=== PATIENT | female | born 1945 | race Caucasian/White ===

== ENCOUNTER 2020-06-18 10:34 | Outpatient (REF) | payer MEDICARE, OTHER, SELFPAY ==
[2020-06-18 14:32] LABS: Alanine Aminotransferase 14 U/L (0-31); Albumin Level 4.3 g/dL (3.5-5.0); Alkaline Phosphatase 57 U/L (39-117); Anion Gap 12 (12-20); Aspartate Amino Transferase 19 U/L (5-31); Bilirubin Total 0.9 mg/dL (0.0-1.0); Blood Urea Nitrogen 15 mg/dL (9-16); Calcium 9.2 mg/dL (8.4-10.2); Carbon Dioxide 30 mmol/L (22-29); Chloride 103 mmol/L (96-108); Cholesterol 160 mg/dL; Estimated Glomerular Filt Rate > 60; Glucose Fasting 92 mg/dL (60-99); HDL Cholesterol 61 mg/dL; LDL Cholesterol Calculated 80 mg/dl; Potassium 4.6 mmol/L (3.3-5.1); Sodium 140 mmol/L (135-145); Total Protein 7.1 g/dL (6.5-8.0); Triglycerides 95 mg/dL
[2020-06-18 15:08] LABS: Thyroid Stimulating Hormone 1.15 uIU/mL (0.32-4.0)
== END 2020-06-18 10:35 | disposition home or self-care (01) ==
LOC: HO.HMGCLDS 10:34
PROVIDERS: PCP Internal Medicine; Visit Provider Internal Medicine
DX: I10 Essential (primary) hypertension (principal); E78.5 Hyperlipidemia, unspecified; G57.02 Lesion of sciatic nerve, left lower limb; M70.62 Trochanteric bursitis, left hip
CPT/HCPCS: 36415; 80053; 80061; 84443

== ENCOUNTER 2020-06-25 14:11 | Outpatient (REF) | payer MEDICARE, OTHER, SELFPAY ==
--- NOTE | ~2020-06-25 | XR_ITS ---
EXAMINATION: XR KNEE, RIGHT CLINICAL INFORMATION: Right knee pain COMPARISON: None TECHNIQUE: Four views of the right knee. FINDINGS: There is no evidence of acute fracture or dislocation of the right knee. No right knee effusion is seen. There is chondrocalcinosis present most prominent about the lateral joint space compartment. Joint space compartments are maintained. 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 XR/XR knee RT 4V IMPRESSION: No acute fracture or dislocation of the right knee. No right knee effusion. Chondrocalcinosis.
== END 2020-06-25 14:12 | disposition home or self-care (01) ==
LOC: HO.HMGCX 14:11
PROVIDERS: PCP Internal Medicine; Visit Provider Internal Medicine
DX: M25.561 Pain in right knee (principal)
CPT/HCPCS: 73564

== ENCOUNTER 2020-12-31 09:37 | Outpatient (REF) | payer MEDICARE, OTHER, SELFPAY ==
[2020-12-31 11:48] LABS: Alanine Aminotransferase 16 U/L (0-31); Albumin Level 4.5 g/dL (3.5-5.0); Alkaline Phosphatase 57 U/L (39-117); Anion Gap 14 (12-20); Aspartate Amino Transferase 19 U/L (5-31); Bilirubin Total 0.7 mg/dL (0.0-1.0); Blood Urea Nitrogen 20 mg/dL (9-16); Calcium 9.9 mg/dL (8.4-10.2); Carbon Dioxide 26 mmol/L (22-29); Chloride 104 mmol/L (96-108); Estimated Glomerular Filt Rate > 60; Glucose Random 147 mg/dL (60-115); Potassium 4.4 mmol/L (3.3-5.1); Sodium 140 mmol/L (135-145); Total Protein 6.8 g/dL (6.5-8.0)
== END 2020-12-31 09:38 | disposition home or self-care (01) ==
LOC: HO.HMGCLDS 09:37
PROVIDERS: PCP Internal Medicine; Visit Provider Internal Medicine
DX: E78.5 Hyperlipidemia, unspecified (principal); I10 Essential (primary) hypertension
CPT/HCPCS: 36415; 80053

== ENCOUNTER 2021-01-19 14:03 | Outpatient (REF) | payer MEDICARE, OTHER, SELFPAY ==
--- NOTE | ~2021-01-19 | US_ITS ---
EXAMINATION: US EXTRACRANIAL CAROTID DUPLEX, BILATERAL CLINICAL INFORMATION: Carotid bruit. Hypertension. Hyperlipidemia. COMPARISON: None TECHNIQUE: Real-time ultrasound and Doppler techniques (integrating B-mode 2-D vascular images, Doppler spectral analysis and color-flow Doppler imaging) were utilized to interrogate the extracranial carotid arteries, the vertebral arteries and proximal subclavian arteries bilaterally. The degree of stenosis is determined by criteria similar to NASCET. FINDINGS: Right Side: 1. There is hyperechoic atherosclerotic plaque seen in the bifurcation/proximal ICA region. 2. The common carotid artery PSV proximally is 75 cm/s and distally 70 cm/s. 3. The proximal internal carotid artery velocities are 149 cm/s systolic and 29 cm/s diastolic. 4. The proximal external carotid artery PSV is 87 cm/s. 5. The vertebral artery shows antegrade flow. 6. The subclavian artery waveforms are normal. Left Side: 1. There is hyperechoic atherosclerotic plaque seen in the bifurcation/proximal ICA region. 2. The common carotid artery PSV proximally is 80 cm/s and distally 68 cm/s. 3. The proximal internal carotid artery velocities are 71 cm/s systolic and 13 cm/s diastolic. 4. The proximal external carotid artery PSV is 85 cm/s. 5. The vertebral artery shows antegrade flow. 6. The subclavian artery waveforms are normal. US/US carotid duplex BI IMPRESSION: 1. RIGHT: Moderate, hemodynamically significant stenosis of the proximal right internal carotid artery corresponding to a 50-79% stenosis by velocity criteria. 2. LEFT: Minimal, non-hemodynamically significant stenosis of the proximal left internal carotid artery corresponding to a 0-49% stenosis by velocity criteria.
== END 2021-01-19 14:04 | disposition home or self-care (01) ==
LOC: HO.HMGCX 14:03
PROVIDERS: PCP Internal Medicine; Visit Provider Internal Medicine
DX: R09.89 Other specified symptoms and signs involving the circulatory and respiratory systems (principal); M85.80 Other specified disorders of bone density and structure, unspecified site
CPT/HCPCS: 93880

== ENCOUNTER 2021-02-03 13:16 | Outpatient (REF) | payer MEDICARE, OTHER, SELFPAY ==
--- NOTE | ~2021-02-03 | MM_ITS ---
EXAMINATION: BONE DENSITOMETRY CLINICAL INDICATION: Other specified disorders of bone density and structure. COMPARISON: None (current study represents initial baseline exam). TECHNIQUE: Using a [employer] DXA System (software version: 13.1) manufactured by [employer], dual-energy x-ray absorptiometry was performed of the lumbar spine and left hip. The images are of good technical quality. Summary results are attached. FINDINGS: AP SPINE L1-L3 (excluding L4): The data of L1-L4 has been changed to exclude the L4 vertebral body, because degenerative changes at this level may cause overestimation of lumbar spine density. BMD 0.843 g/cm2, Z-score -1.3, T-score -2.7, osteoporosis. LEFT FEMUR, NECK: BMD 0.801 g/cm2, Z-score 0.1, T-score -1.7, osteopenia. LEFT FEMUR, TOTAL: BMD 0.854 g/cm2, Z-score 0.4, T-score -1.2, osteopenia. IDENTIFIED RISK FACTORS: Menopause. HISTORY OF FRACTURE: None listed. MEDICATIONS: Vitamin D. MM/XR DEXA axial skeleton IMPRESSION: 1. DIAGNOSIS: Osteoporosis based on the lowest T-score value of -2.7 in the lumbar spine applying World Health Organization criteria. 2. 10-YEAR FRACTURE RISK PREDICTION, FRAX: Major osteoporotic fracture (clinical spine, forearm, hip or shoulder) 13.0%. Hip fracture 3.1%. 3. Treatment Recommendations: NOF guidelines recommend consideration for treatment in postmenopausal women and men age 50 and older presenting with the following: -A hip or vertebral (clinical or morphometric) fracture. -T-score less than or equal to -2.5 at the femoral neck or spine after appropriate evaluation to exclude secondary causes. -Low bone mass at the hip or spine and a 10-year fracture probability by FRAX of greater than or equal to 3% for hip fracture or greater than or equal to 20% for major osteoporotic fracture based on the [place] adapted WHO algorithm. 4. Other Recommendations: All treatment decisions require clinical judgment and consideration of individual patient factors, including patient preferences, comorbidities, previous drug use, risk factors not captured in the FRAX model (e.g. frailty, falls, vitamin D deficiency, increased bone turnover, interval significant decline in bone density) and possible under or overestimation of fracture risk by FRAX. Additional medical evaluation for secondary cause of low bone mineral density may be appropriate. FUTURE SCAN RECOMMENDATION: People with diagnosed cases of osteoporosis or at high risk for fracture should have regular bone mineral density tests. For patients eligible for Medicare, routine testing is allowed once every 2 years. The testing frequency can be increased to one year for patients who have rapidly progressing disease, those who are receiving or discontinuing medical therapy to restore bone mass, or have additional risk factors.
== END 2021-02-03 13:17 | disposition home or self-care (01) ==
LOC: HO.MAMMO 13:16
PROVIDERS: Visit Provider Internal Medicine
DX: Z13.820 Encounter for screening for osteoporosis (principal); M81.0 Age-related osteoporosis without current pathological fracture; M85.80 Other specified disorders of bone density and structure, unspecified site; Z78.0 Asymptomatic menopausal state; Z79.899 Other long term (current) drug therapy
CPT/HCPCS: 77080

== ENCOUNTER 2022-01-06 10:22 | Outpatient (REF) | payer MEDICARE, OTHER, SELFPAY ==
[2022-01-06 11:27] LABS: Estimated Average Glucose 117 mg/dL; Hemoglobin A1c % 5.7 %
[2022-01-06 11:37] LABS: Alanine Aminotransferase 17 U/L (0-31); Albumin Level 4.1 g/dL (3.5-5.0); Alkaline Phosphatase 45 U/L (39-117); Anion Gap 13 (12-20); Aspartate Amino Transferase 21 U/L (5-31); Bilirubin Total 0.7 mg/dL (0.0-1.0); Blood Urea Nitrogen 19 mg/dL (9-16); Calcium 9.7 mg/dL (8.4-10.2); Carbon Dioxide 30 mmol/L (22-29); Chloride 103 mmol/L (96-108); Cholesterol 154 mg/dL; Estimated Glomerular Filt Rate 57; Glucose Fasting 93 mg/dL (60-99); HDL Cholesterol 74 mg/dL; LDL Cholesterol Calculated 69 mg/dl; Potassium 4.4 mmol/L (3.3-5.1); Sodium 142 mmol/L (135-145); Total Protein 6.5 g/dL (6.5-8.0); Triglycerides 57 mg/dL
[2022-01-06 12:01] LABS: TSH reflex Free T4 1.78 uIU/mL (0.32-4.0); Vitamin D 25-OH Total 36.4 ng/mL (>30)
== END 2022-01-06 10:23 | disposition home or self-care (01) ==
LOC: HO.HMGCLDS 10:22
PROVIDERS: PCP Internal Medicine; Visit Provider Internal Medicine
DX: Z00.00 Encounter for general adult medical examination without abnormal findings (principal); E78.5 Hyperlipidemia, unspecified; I10 Essential (primary) hypertension; M85.80 Other specified disorders of bone density and structure, unspecified site; E55.9 Vitamin D deficiency, unspecified
CPT/HCPCS: 36415; 80053; 80061; 82306; 83036; 84443

== ENCOUNTER 2022-05-06 13:57 | Outpatient (REF) | payer MEDICARE, OTHER, SELFPAY ==
[2022-05-06 15:15] LABS: Appearance Urine Clear; Color Urine Dark Yellow; Glucose Urine UA Negative (Negative); Leukocyte Esterase Urine Small (1+) (Negative); Nitrite Urine Positive (Negative); Specific Gravity - Urine 1.015 (1.005-1.025); UMIC TRIGGER UACC YES; Urine Blood Negative (Negative); Urine Ketones Negative (Negative); Urine Protein Negative (Neg-Trace)
[2022-05-06 15:20] LABS: Bacteria Urine 1+ (None Seen); Hyaline Casts Urine 0-2 /LPF (0-2); RBC Urine 0-2 /HPF (0-2); Squamous Epithelial Cell Urine 0-2 /HPF (0-2); UACC Culture Trigger YES
== END 2022-05-06 13:58 | disposition home or self-care (01) ==
LOC: HO.LAB 13:57
PROVIDERS: Visit Provider Nurse Practitioner Acute Care
DX: R35.0 Frequency of micturition (principal)
CPT/HCPCS: 81001; 87086; 87088; 87186

== ENCOUNTER 2022-07-05 09:51 | Outpatient (REF) | payer MEDICARE, OTHER, SELFPAY ==
[2022-07-05 11:52] LABS: MANUAL DIFF FLAG NO
[2022-07-05 12:09] LABS: Basophils Percent Auto 0.7 % (0-2); Eosinophils Absolute Auto 0.3 X10*3/uL (0.0-0.4); Eosinophils Percent Auto 4.7 % (0-4); Hematocrit 41.1 % (37.0-47.0); Hemoglobin 13.6 g/dl (12.0-16.0); Imm Gran Abs Auto 0.02 X10*3/uL (0.00-0.03); Imm Gran Pct Auto 0.3 % (0.0-0.4); Lymphocytes Absolute Auto 0.9 X10*3/uL (1.2-4.9); Mean Corpuscular HGB Conc 33.1 g/dl (31.0-35.0); Mean Corpuscular Hemoglobin 31.5 pg (27.0-33.0); Mean Corpuscular Volume 95.1 fL (80.0-98.0); Mean Platelet Volume 10.5 fL (9.4-12.3); Monocytes Absolute Auto 0.5 X10*3/uL (0.1-1.2); Monocytes Percent Auto 9.1 % (2-11); Neutrophils Absolute Auto 4.2 x10*3/uL (2.0-8.3); Neutrophils Percent Auto 70.2 % (45-73); Platelet Count 176 X10*3/uL (160-400); Red Blood Count 4.32 X10*6/uL (4.20-5.50); Red Cell Distribution Width 13.3 % (11.0-16.0); White Blood Count 5.9 X10*3/uL (4.8-10.8)
[2022-07-05 12:49] LABS: Estimated Average Glucose 120 mg/dL; Hemoglobin A1c % 5.8 %
[2022-07-05 12:51] LABS: Alanine Aminotransferase 17 U/L (0-31); Alkaline Phosphatase 55 U/L (39-117); Anion Gap 15 (12-20); Aspartate Amino Transferase 22 U/L (5-31); Bilirubin Total 1.1 mg/dL (0.0-1.0); Blood Urea Nitrogen 16 mg/dL (9-16); Calcium 9.6 mg/dL (8.4-10.2); Carbon Dioxide 27 mmol/L (22-29); Chloride 106 mmol/L (96-108); Estimated Glomerular Filt Rate > 60; Glucose Fasting 97 mg/dL (60-99); Potassium 4.6 mmol/L (3.3-5.1); Sodium 143 mmol/L (135-145); Total Protein 6.4 g/dL (6.5-8.0)
[2022-07-05 12:53] LABS: TSH reflex Free T4 1.45 uIU/mL (0.32-4.0)
== END 2022-07-05 09:52 | disposition home or self-care (01) ==
LOC: HO.HMGCLDS 09:51
PROVIDERS: PCP Internal Medicine; Visit Provider Internal Medicine
DX: E03.9 Hypothyroidism, unspecified (principal); I10 Essential (primary) hypertension; N30.00 Acute cystitis without hematuria; E78.5 Hyperlipidemia, unspecified
CPT/HCPCS: 36415; 80053; 83036; 84443; 85025; 87086

== ENCOUNTER 2022-07-10 12:52 | Outpatient (REF) | payer MEDICARE, OTHER, SELFPAY ==
--- NOTE | ~2022-07-10 | XR_ITS ---
EXAMINATION: XR CHEST CLINICAL INFORMATION: Cough. COMPARISON: None available. TECHNIQUE: 2 views of the chest were obtained. FINDINGS: The lungs are hyperinflated bibasilar linear atelectasis. The heart size and pulmonary vascularity is normal. No bony abnormality seen. XR/XR chest 2V IMPRESSION: Hyperinflated lungs with bibasilar linear atelectasis.
== END 2022-07-10 12:53 | disposition home or self-care (01) ==
LOC: HO.HMGCX 12:52
PROVIDERS: PCP Internal Medicine; Visit Provider Internal Medicine
DX: R05.9 Cough, unspecified (principal)
CPT/HCPCS: 71046

== ENCOUNTER 2022-11-10 12:26 | Outpatient (AMB) | payer MEDICARE, OTHER, SELFPAY ==
--- NOTE | 2022-11-10 12:28 | A.OFFPC_ITS ---
Vital Signs 11/10/22 12:29 Height 5 ft 2 in Weight 164 lb BMI 30.0 BP 120/76 Blood Pressure Location Lt brachial Position Sitting Pulse 77 Pulse Source Pulse Oximeter Pulse Oximetry (%) 98 Oxygen Delivery Method Room Air Intake Visit Reasons: Hemorrhoids Allergies No Known Allergies Allergy (Verified 11/10/22 12:29) Medication List - Last Reconciled 11/10/22 by Gregoria Mccloud MD fluticasone propion-salmeterol 250-50 mcg/dose (Advair Diskus) 1 ea PO BID ketoconazole 2% 1 appl topical BID lisinopril-hydrochlorothiazide 10-12.5 mg 1 tab PO DAILY montelukast (Singulair) 10 mg PO DAILY paroxetine HCl 10 mg PO DAILY rosuvastatin 20 mg PO DAILY thyroid (pork) ([place] Thyroid) 90 mg PO DAILY Tobacco use date assessed: 07/10/22 Fall risk assessment: No Falls in past year Last assessed Fall Risk: 11/10/22 HPI Hemorrhoids HPI Details PATIENT PRESENTS FOR THE FOLLOW-UP OF HTN, HYPOTHYROID, HYPERLIPID STABLE ON MEDS. Pt c/o anal area itching and irrtation for 3 weeks. She tried OTC creams for hemorrhoids. Pt denies bleeding, change in the BMs. [facility] Medical History Annual physical exam Anxiety and depression Asthma Carotid artery bruit HTN (hypertension) Hyperlipidemia Hypothyroidism Knee pain, left Osteopenia Osteoporosis Overweight Sciatica Vitamin D deficiency Vitamin D deficiency disease Surgical History Hx of total knee replacement Family History Father Heart attack Mother No problems noted. Social History Housing: House Patient Tobacco Use Status: Never used Tobacco e-Cigarette/Vaping Use: Never Used Current occupational status: retired Cognitive needs: No Hearing needs: No Vision needs: Yes Questionnaire Thrive Questionnaire Date Thrive assessed: 03/15/21 SASHA-7 AMB Questionnaire SASHA-7 Date SASHA - 7 assessed: 03/15/21 Source: Developed by Drs. Nico L. JermainDea thompson, Rome Garcia and colleagues, with an educational deandre from [employer]. Review of Systems Const All systems reviewed & are unremarkable except as noted in HPI and below Reports no additional complaints Eyes Reports no additional complaints ENT Reports no additional complaints Card Reports no additional complaints Resp Reports no additional complaints GI Reports no additional complaints Reports no additional complaints Physical exam (Primary Care) Vital Signs: Last Vital Signs Pulse 77 11/10/22 12:29 BP 120/76 11/10/22 12:29 Pulse Ox 98 11/10/22 12:29 Oxygen Delivery Method Room Air 11/10/22 12:29 BMI result Body Mass Index 30.0 Tobacco/Smoking Status: Tobacco use Status Tobacco use date assessed 07/10/22 11/10/22 12:32 Patient Tobacco Use Status Never used Tobacco 11/10/22 12:32 e-Cigarette/Vaping Use Never Used 11/10/22 12:32 Thrive Assessment: Date of Thrive Assessment Date Thrive assessed 03/15/21 11/10/22 12:32 Const General: no acute distress Neck Neck: Yes supple Resp Effort & Inspection: normal respiratory effort Auscultation: clear to auscultation bilaterally Cardio Rhythm: regular rhythm Heart sounds: S1 normal heart sound present and S2 normal heart sound present GI Palpation (GI): Soft to palpation Percussion: Yes normal to percussion Auscultation: normal bowel sounds Rectal Exam - Female: normal sphincter tone, No hemorrhoids, Laceration(s) present (GI) and Excoriation present (GI) Assessment and Plan Assessment & Plan (1) Anal pruritus: Code(s): L29.0 - Pruritus ani Plan: Try ketoconazole cream and cornstarch powder to keep the area dry. Supportive care discussed with the patient (2) Hyperlipidemia: Code(s): E78.5 - Hyperlipidemia, unspecified Plan: Continue statin (3) HTN (hypertension): Code(s): I10 - Essential (primary) hypertension Plan: Continue medications (4) Hypothyroidism: Code(s): E03.9 - Hypothyroidism, unspecified Plan: Continue thyroid replacement, follow-up in 6 months Orders: Orders Comprehensive Met. Panel 6 Months E03.9 - Hypothyroidism, unspecified, E78.5 - Hyperlipidemia, unspecified, I10 - Essential (primary) hypertension TSH reflex Free T4 6 Months E03.9 - Hypothyroidism, unspecified, E78.5 - Hyperlipidemia, unspecified, I10 - Essential (primary) hypertension Complete Blood Count Auto Diff 6 Months E03.9 - Hypothyroidism, unspecified, E78.5 - Hyperlipidemia, unspecified, I10 - Essential (primary) hypertension Lipid Panel 6 Months E03.9 - Hypothyroidism, unspecified, E78.5 - Hyperlipidemia, unspecified, I10 - Essential (primary) hypertension Medications: New ketoconazole 2% 1 appl topical BID 30 grams 0RF Coding Level of Care Code Est Pt Level 4 (99850) Diagnoses Anal pruritus L29.0 Hyperlipidemia E78.5 HTN (hypertension) I10 Hypothyroidism E03.9
[2022-11-10 12:29] VITALS: BP 120/76; PULSE 77; O2SAT 98
== END 2022-11-10 13:05 | disposition home or self-care (01) ==
PROVIDERS: PCP Internal Medicine; Visit Provider Internal Medicine
DX: L29.0 Pruritus ani (principal); E78.5 Hyperlipidemia, unspecified; I10 Essential (primary) hypertension; E03.9 Hypothyroidism, unspecified
CPT/HCPCS: 99214

== ENCOUNTER 2023-05-09 11:28 | Outpatient (REF) | payer MEDICARE, OTHER, SELFPAY ==
[2023-05-09 13:37] LABS: MANUAL DIFF FLAG NO
[2023-05-09 14:04] LABS: Basophils Percent Auto 0.8 % (0-2); Eosinophils Absolute Auto 0.3 X10*3/uL (0.0-0.4); Eosinophils Percent Auto 6.5 % (0-4); Hematocrit 42.8 % (37.0-47.0); Hemoglobin 13.8 g/dl (12.0-16.0); Imm Gran Abs Auto 0.02 X10*3/uL (0.00-0.03); Imm Gran Pct Auto 0.4 % (0.0-0.4); Lymphocytes Absolute Auto 1.1 X10*3/uL (1.2-4.9); Lymphocytes Percent Auto 22.6 % (20-40); Mean Corpuscular HGB Conc 32.2 g/dl (31.0-35.0); Mean Corpuscular Hemoglobin 31.4 pg (27.0-33.0); Mean Corpuscular Volume 97.3 fL (80.0-98.0); Mean Platelet Volume 11.1 fL (9.4-12.3); Monocytes Absolute Auto 0.5 X10*3/uL (0.1-1.2); Neutrophils Absolute Auto 2.9 x10*3/uL (2.0-8.3); Neutrophils Percent Auto 58.7 % (45-73); Platelet Count 185 X10*3/uL (160-400); Red Cell Distribution Width 13.4 % (11.0-16.0); White Blood Count 4.9 X10*3/uL (4.8-10.8)
[2023-05-09 14:29] LABS: Alanine Aminotransferase 16 U/L (0-31); Albumin Level 4.3 g/dL (3.5-5.0); Alkaline Phosphatase 52 U/L (39-117); Anion Gap 13 (12-20); Aspartate Amino Transferase 23 U/L (5-31); Bilirubin Total 0.8 mg/dL (0.0-1.0); Blood Urea Nitrogen 25 mg/dL (9-16); Carbon Dioxide 27 mmol/L (22-29); Chloride 104 mmol/L (96-108); Cholesterol 152 mg/dL (<200); Estimated Glomerular Filt Rate 55; Glucose Random 99 mg/dL (60-115); HDL Cholesterol 56 mg/dL (>40); LDL Cholesterol Calculated 74 mg/dL (<100); Potassium 4.6 mmol/L (3.3-5.1); Sodium 139 mmol/L (135-145); TSH reflex Free T4 0.73 uIU/mL (0.32-4.0); Total Protein 7.5 g/dL (6.5-8.0); Triglycerides 113 mg/dL (<150)
== END 2023-05-09 11:29 | disposition home or self-care (01) ==
LOC: HO.HMGCLDS 11:28
PROVIDERS: PCP Internal Medicine; Visit Provider Internal Medicine
DX: E03.9 Hypothyroidism, unspecified (principal); E78.5 Hyperlipidemia, unspecified; I10 Essential (primary) hypertension
CPT/HCPCS: 36415; 80053; 80061; 84443; 85025

== ENCOUNTER 2023-05-16 12:59 | Outpatient (AMB) | payer MEDICARE, OTHER, SELFPAY ==
--- NOTE | 2023-05-16 13:25 | A.OFFPC_ITS ---
Vital Signs 05/16/23 13:26 Height 5 ft 2 in Weight 160 lb BMI 29.3 BP 120/74 Blood Pressure Location Lt brachial Position Sitting Pulse 79 Pulse Source Pulse Oximeter Pulse Oximetry (%) 97 Oxygen Delivery Method Room Air Intake Visit Reasons: pe Intake Note: Pt is here today for PE. Allergies No Known Allergies Allergy (Verified 05/16/23 13:28) Medication List - Last Reconciled 05/16/23 by Gregoria Mccloud MD clotrimazole-betamethasone 1-0.05 % 1 appl topical BID inhalational spacing device As directed with inhaler ketoconazole 2% 1 appl topical BID lisinopril-hydrochlorothiazide 10-12.5 mg 1 tab PO DAILY montelukast (Singulair) 10 mg PO DAILY paroxetine HCl 10 mg PO DAILY rosuvastatin 20 mg PO DAILY thyroid (pork) ([place] Thyroid) 90 mg PO DAILY Trelegy Ellipta 100-62.5-25 mcg ([id number]-vstqwhlmy-bkcxbtby) 1 inh inhalation DAILY NS Tobacco use date assessed: 05/16/23 Fall risk assessment: No Falls in past year Last assessed Fall Risk: 05/16/23 Dental Screening Dental Screen Date: 05/16/23 Did you have a dental visit in the last 12 months?: Yes Did you have a dental problem in the last 6 months where you did not have access to dental care?: No Was dental information given to patient?: Patient has dentist HPI pe HPI Details Patient presents for physical. She complains of feeling depressed, having low energy and not interested in returning to her regular exercise and yoga classes. Patient complains of intermittent insomnia but denies suicidal ideation. She has been taking paroxetine which has not been effective. Patient is not interested in seeing a counselor. [facility] Medical History (Updated 05/16/23 @ 15:28 by Gregoria Mccloud MD) Anxiety and depression Vitamin D deficiency Vitamin D deficiency disease Carotid artery bruit Osteopenia Annual physical exam Knee pain, left Sciatica Hypothyroidism Asthma Overweight Hyperlipidemia HTN (hypertension) Surgical History Hx of total knee replacement Family History Father Heart attack Mother No problems noted. Social History Housing: House Patient Tobacco Use Status: Never used Tobacco e-Cigarette/Vaping Use: Never Used Current occupational status: retired Cognitive needs: No Hearing needs: No Vision needs: Yes Questionnaire PHQ-9 Over the last 2 weeks, how often have you been bothered by any of the following problems? 1. Little interest or pleasure in doing things: more than half the days 2. Feeling down, depressed, or hopeless: more than half the days 3. Trouble falling or staying asleep, or sleeping too much: more than half the days 4. Feeling tired or having little energy: more than half the days 5. Poor appetite or overeating: more than half the days 6. Feeling bad about yourself - or that you are a failure or have let yourself or your family down: more than half the days 7. Trouble concentrating on things, such as reading the newspaper or watching television: more than half the days 8. Moving or speaking so slowly that other people could have noticed. Or the opposite - being so fidgety or restless that you have been moving around a lot more than usual: not at all 9. Thoughts that you would be better off or of hurting yourself in some way: not at all Total score: 14 Depression Screening Interpretation: Positive Depression Screening Done: Yes 42043 - PHQ-9 Billing: Yes Source: Developed by Drs. Nico Aly, Dea Siegel, Rome Garcia and colleagues, with an educational deandre from [employer]. Thrive Questionnaire Date Thrive assessed: 05/16/23 I am a: Patient What is your living situation today?: I have a steady place to live Within the past 12 months, did the food you bought not last and you didn't have the money to get more?: Never true Within the past 12 months, did you worry whether your food would run out before you got money to buy more?: Never true Do you have trouble paying for medicines?: No Do you have trouble getting transportation to medical appointments?: No Do you have trouble paying your heating and electricity bill?: No Do you have trouble taking care of your child, family member or friend?: No Do you have trouble with day-to-day activities such as bathing, preparing meals, shopping, managing finances, etc.?: No Are you currently unemployed and looking for a job?: No Are you interested in more education?: No Please select the resources that you would like help with: None Currently or been in a relationship where the following occur: no concerns reported THRIVE Score: 0 AUDIT C Alcohol Use Questionnaire (AUDIT-C) 1. How often do you have a drink containing alcohol?: Monthly or less 2. How many drinks containing alcohol do you have on a typical day when you are drinking?: 1 or 2 3. How often do you have six or more drinks on one occasion?: Never Total Score: 1 SASHA-7 AMB Questionnaire SASHA-7 Date SASHA - 7 assessed: 05/16/23 Feeling nervous, anxious, or on edge: 1 = Several days Not being able to stop or control worryin = More than half the days Worrying too much about different things: 2 = More than half the days Trouble relaxin = More than half the days Being so restless that it is hard to sit still: 2 = More than half the days Becoming easily annoyed or irritable: 2 = More than half the days Feeling afraid as if something awful might happen: 2 = More than half the days Total SASHA-7 score (0-4 normal; 5-9 mild; 10-14 moderate; 15-21 severe): 13 Source: Developed by Drs. Nico Aly, Dea Siegel, Rome Garcia and colleagues, with an educational deandre from [employer]. Review of Systems Const All systems reviewed & are unremarkable except as noted in HPI and below Reports no additional complaints Eyes Reports no additional complaints ENT Reports no additional complaints Card Reports no additional complaints Resp Reports no additional complaints GI Reports no additional complaints Reports no additional complaints Physical exam (Primary Care) Vital Signs: Last Vital Signs Pulse 79 05/16/23 13:26 BP 120/74 05/16/23 13:26 Pulse Ox 97 05/16/23 13:26 Oxygen Delivery Method Room Air 05/16/23 13:26 BMI result Body Mass Index 29.3 Tobacco/Smoking Status: Tobacco use Status Tobacco use date assessed 05/16/23 05/16/23 13:32 Patient Tobacco Use Status Never used Tobacco 05/16/23 13:32 e-Cigarette/Vaping Use Never Used 05/16/23 13:32 Depression Screening Interpretation: Positive Thrive Assessment: Date of Thrive Assessment Date Thrive assessed 03/15/21 05/16/23 13:32 Currently or been in a relationship where the following occur: no concerns reported Const General: no acute distress HENMT Head: Yes normal to inspection Ears: hearing grossly normal bilaterally Throat: Yes posterior oropharynx normal Eyes General: appearance normal, both eyes and all related structures Neck Neck: Yes no lymphadenopathy and Yes supple Resp Effort & Inspection: normal respiratory effort Auscultation: clear to auscultation bilaterally Cardio Rhythm: regular rhythm Heart sounds: S1 normal heart sound present and S2 normal heart sound present GI Inspection: Yes normal to inspection Palpation (GI): Soft to palpation Percussion: Yes normal to percussion Auscultation: normal bowel sounds Assessment and Plan Assessment & Plan (1) Asthma: Comment: Advair not covered by insurance Symbicort not affective Code(s): J45.909 - Unspecified asthma, uncomplicated Plan: Trelegy will be tried (2) Hypothyroidism: Code(s): E03.9 - Hypothyroidism, unspecified Plan: Continue [place] thyroid (3) Hyperlipidemia: Code(s): E78.5 - Hyperlipidemia, unspecified Plan: Continue statin (4) HTN (hypertension): Code(s): I10 - Essential (primary) hypertension Plan: Continue current medications (5) Anxiety and depression: Code(s): F41.9 - Anxiety disorder, unspecified; F32.9 - Major depressive disorder, single episode, unspecified Plan: Patient will taper of paroxetine and start Lexapro 10 mg daily. Stress management discussed with the patient she was advised to increase exercise and mindfulness for anxiety management. Patient declined seeing a counselor. Follow-up in 2 months Medications: New Trelegy Ellipta 100-62.5-25 mcg (qysvldhalph-okhwjwley-[id number]) 1 inh inhalation DAILY 60 ea 3RF NS escitalopram oxalate (Lexapro) 10 mg PO DAILY 90 tabs 0RF Changed From rosuvastatin 20 mg PO DAILY 90 tabs 3RF To rosuvastatin every other day 20 mg PO DAILY Discontinued paroxetine HCl Discontinued Reason: Doctor's Order 10 mg PO DAILY 90 tabs 3RF budesonide-formoterol 160-4.5 mcg/actuation (Symbicort) Discontinued Reason: Doctor's Order 2 puffs inhalation BID 10.2 grams 1RF fluticasone propion-salmeterol 250-50 mcg/dose (Advair Diskus) Discontinued Reason: Doctor's Order 1 ea PO BID 180 ea 3RF Coding Level of Care Code Est Pt Prev Care >65y(11465) Diagnoses Asthma J45.909 Hypothyroidism E03.9 Hyperlipidemia E78.5 HTN (hypertension) I10 Anxiety and depression F41.9; F32.9
[2023-05-16 13:26] VITALS: BP 120/74; PULSE 79; O2SAT 97; BMI 29.3
== END 2023-05-16 14:46 | disposition home or self-care (01) ==
PROVIDERS: PCP Internal Medicine; Visit Provider Internal Medicine
DX: J45.909 Unspecified asthma, uncomplicated (principal); E03.9 Hypothyroidism, unspecified; E78.5 Hyperlipidemia, unspecified; I10 Essential (primary) hypertension; F41.9 Anxiety disorder, unspecified; F32.9 Major depressive disorder, single episode, unspecified
CPT/HCPCS: 99214

== ENCOUNTER 2023-07-10 12:46 | Outpatient (AMB) | payer MEDICARE, OTHER, SELFPAY ==
--- NOTE | 2023-07-10 13:14 | A.OFFPC_ITS ---
Vital Signs 07/10/23 13:15 Height 5 ft 2 in Weight 162 lb BMI 29.6 BP 130/74 Blood Pressure Location Lt brachial Position Sitting Pulse 59 Pulse Source Pulse Oximeter Pulse Oximetry (%) 97 Oxygen Delivery Method Room Air Intake Visit Reasons: 2 months follow up Intake Note: Pt is here today for 2 months follow up visit. Allergies No Known Allergies Allergy (Verified 07/10/23 13:21) Medication List - Last Reconciled 07/10/23 by Gregoria Mccloud MD clotrimazole-betamethasone 1-0.05 % 1 appl topical BID escitalopram oxalate (Lexapro) 10 mg PO DAILY inhalational spacing device As directed with inhaler ketoconazole 2% 1 appl topical BID lisinopril-hydrochlorothiazide 10-12.5 mg 1 tab PO DAILY montelukast (Singulair) 10 mg PO DAILY rosuvastatin 20 mg PO DAILY thyroid (pork) ([place] Thyroid) 90 mg PO DAILY Trelegy Ellipta 100-62.5-25 mcg ([id number]-[id number]-[id number]) 1 inh inhalation DAILY NS Tobacco use date assessed: 07/10/23 HPI 2 months follow up HPI Details Patient presents for the follow-up. Hypertension COPD hyperlipidemia are controlled on current medications. Anxiety is better controlled on escitalopram. [facility] Medical History (Updated 07/10/23 @ 13:47 by Gregoria Mccloud MD) Anxiety and depression Vitamin D deficiency Vitamin D deficiency disease Carotid artery bruit Osteopenia Annual physical exam Knee pain, left Sciatica Hypothyroidism Asthma Overweight Hyperlipidemia HTN (hypertension) Surgical History Hx of total knee replacement Family History Father Heart attack Mother No problems noted. Social History Housing: House Patient Tobacco Use Status: Never used Tobacco e-Cigarette/Vaping Use: Never Used Current occupational status: retired Cognitive needs: No Hearing needs: No Vision needs: Yes Questionnaire Thrive Questionnaire Date Thrive assessed: 05/16/23 SASHA-7 AMB Questionnaire SASHA-7 Date SASHA - 7 assessed: 05/16/23 Source: Developed by Drs. Nico Aly, Dea Siegel, Rome Garcia and colleagues, with an educational deandre from [employer]. Review of Systems Const All systems reviewed & are unremarkable except as noted in HPI and below Reports no additional complaints Eyes Reports no additional complaints ENT Reports no additional complaints Card Reports no additional complaints Resp Reports no additional complaints GI Reports no additional complaints Reports no additional complaints Physical exam (Primary Care) Vital Signs: Last Vital Signs Pulse 59 07/10/23 13:15 BP 130/74 07/10/23 13:15 Pulse Ox 97 07/10/23 13:15 Oxygen Delivery Method Room Air 07/10/23 13:15 BMI result Body Mass Index 29.6 Tobacco/Smoking Status: Tobacco use Status Tobacco use date assessed 07/10/23 07/10/23 13:23 Patient Tobacco Use Status Never used Tobacco 07/10/23 13:15 e-Cigarette/Vaping Use Never Used 07/10/23 13:15 Thrive Assessment: Date of Thrive Assessment Date Thrive assessed 05/16/23 07/10/23 13:15 Const General: no acute distress HENMT Head: Yes normal to inspection Face and sinus: Yes normal facial exam Eyes General: appearance normal, both eyes and all related structures Neck Neck: Yes no lymphadenopathy and Yes supple Resp Effort & Inspection: normal respiratory effort Auscultation: clear to auscultation bilaterally Cardio Rhythm: regular rhythm Heart sounds: S1 normal heart sound present and S2 normal heart sound present GI Inspection: Yes normal to inspection Palpation (GI): Soft to palpation Assessment and Plan Assessment & Plan (1) Carotid artery bruit: Comment: R carotid moderate stenosis 50-79% , L minimal , 2020 Code(s): R09.89 - Other specified symptoms and signs involving the circulatory and respiratory systems Plan: Repeat carotid ultrasound (2) Hypothyroidism: Code(s): E03.9 - Hypothyroidism, unspecified Plan: Continue thyroid replacement (3) Hyperlipidemia: Code(s): E78.5 - Hyperlipidemia, unspecified Plan: Continue statin (4) HTN (hypertension): Code(s): I10 - Essential (primary) hypertension Plan: Continue current medications follow-up in 4 months Orders: Orders US carotid duplex BI Today R09.89 - Other specified symptoms and signs involving the circulatory and respiratory systems Comprehensive [place]. Panel Fast 4 Months E03.9 - Hypothyroidism, unspecified, E78.5 - Hyperlipidemia, unspecified, I10 - Essential (primary) hypertension Lipid Panel 4 Months E03.9 - Hypothyroidism, unspecified, E78.5 - Hyperlipidemia, unspecified, I10 - Essential (primary) hypertension Coding Level of Care Code Est Pt Level 4 (10704) Diagnoses Carotid artery bruit R09.89 Hypothyroidism E03.9 Hyperlipidemia E78.5 HTN (hypertension) I10
[2023-07-10 13:15] VITALS: BP 130/74; PULSE 59; O2SAT 97; BMI 29.6
== END 2023-07-10 15:19 | disposition home or self-care (01) ==
PROVIDERS: PCP Internal Medicine; Visit Provider Internal Medicine
DX: R09.89 Other specified symptoms and signs involving the circulatory and respiratory systems (principal); E03.9 Hypothyroidism, unspecified; E78.5 Hyperlipidemia, unspecified; I10 Essential (primary) hypertension
CPT/HCPCS: 99214

== ENCOUNTER 2023-08-27 12:49 | Outpatient (REF) | payer MEDICARE, OTHER, SELFPAY ==
--- NOTE | ~2023-08-27 | US_ITS ---
EXAMINATION: US EXTRACRANIAL CAROTID DUPLEX, BILATERAL CLINICAL INFORMATION: Carotid stenosis. Carotid bruit. COMPARISON: Carotid ultrasound 01/19/2021. TECHNIQUE: Real-time ultrasound and Doppler techniques (integrating B-mode 2-D vascular images, Doppler spectral analysis and color-flow Doppler imaging) were utilized to interrogate the extracranial carotid arteries, the vertebral arteries and proximal subclavian arteries bilaterally. The degree of stenosis is determined by criteria similar to NASCET. FINDINGS: Right Side: 1. There is mild atherosclerotic plaque seen in the bifurcation/proximal ICA region. 2. The common carotid artery PSV proximally is 83 cm/s and distally 79 cm/s. 3. The proximal internal carotid artery velocities are 76 cm/s systolic and 10 cm/s diastolic. 4. The proximal external carotid artery PSV is 107 cm/s. 5. The vertebral artery shows antegrade flow. 6. The subclavian artery waveforms are normal. Left Side: 1. There is mild atherosclerotic plaque seen in the bifurcation/proximal ICA region. 2. The common carotid artery PSV proximally is 78 cm/s and distally 85 cm/s. 3. The proximal internal carotid artery velocities are 77 cm/s systolic and 18 cm/s diastolic. 4. The proximal external carotid artery PSV is 80 cm/s. 5. The vertebral artery shows antegrade flow. 6. The subclavian artery waveforms are normal. US/US carotid duplex BI IMPRESSION: 1. RIGHT: Minimal, non-hemodynamically significant stenosis of the proximal right internal carotid artery corresponding to a 0-49% stenosis by velocity criteria. 2. LEFT: Minimal, non-hemodynamically significant stenosis of the proximal left internal carotid artery corresponding to a 0-49% stenosis by velocity criteria. 3. High velocity criteria, ICA stenosis category has improved on the right and is stable on the left as compared to the prior study 01/19/2021.
== END 2023-08-27 12:50 | disposition home or self-care (01) ==
LOC: HO.HMGCX 12:49
PROVIDERS: PCP Internal Medicine; Visit Provider Internal Medicine
DX: R09.89 Other specified symptoms and signs involving the circulatory and respiratory systems (principal)
CPT/HCPCS: 93880

== ENCOUNTER 2023-11-07 09:52 | Outpatient (REF) | payer MEDICARE, OTHER, SELFPAY ==
[2023-11-07 13:48] LABS: Alanine Aminotransferase 17 U/L (0-31); Albumin Level 4.1 g/dL (3.5-5.0); Alkaline Phosphatase 47 U/L (39-117); Anion Gap 14 (12-20); Aspartate Amino Transferase 25 U/L (5-31); Bilirubin Total 0.7 mg/dL (0.0-1.0); Blood Urea Nitrogen 24 mg/dL (9-16); Calcium 9.9 mg/dL (8.4-10.2); Carbon Dioxide 27 mmol/L (22-29); Chloride 106 mmol/L (96-108); Cholesterol 165 mg/dL (<200); Estimated Glomerular Filt Rate 50; Glucose Fasting 95 mg/dL (60-99); HDL Cholesterol 63 mg/dL (>40); LDL Cholesterol Calculated 85 mg/dL (<100); Potassium 4.6 mmol/L (3.3-5.1); Sodium 142 mmol/L (135-145); Total Protein 6.9 g/dL (6.5-8.0); Triglycerides 85 mg/dL (<150)
== END 2023-11-07 09:53 | disposition home or self-care (01) ==
LOC: HO.HMGCLDS 09:52
PROVIDERS: PCP Internal Medicine; Visit Provider Internal Medicine
DX: E03.9 Hypothyroidism, unspecified (principal); E78.5 Hyperlipidemia, unspecified; I10 Essential (primary) hypertension
CPT/HCPCS: 36415; 80053; 80061

== ENCOUNTER 2023-11-12 12:40 | Outpatient (AMB) | payer MEDICARE, OTHER, SELFPAY ==
--- NOTE | 2023-11-12 12:46 | A.OFFPC_ITS ---
Vital Signs 11/12/23 12:47 Height 5 ft 2 in Weight 167 lb BMI 30.5 BP 124/74 Blood Pressure Location Lt brachial Position Sitting Pulse 80 Pulse Source Pulse Oximeter Pulse Oximetry (%) 96 Oxygen Delivery Method Room Air Intake Visit Reasons: 4 month follow up Intake Note: Pt is here today for 4 months follow up visit on lab results. 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: No Allergies No Known Allergies Allergy (Verified 11/12/23 12:47) Medication List - Last Reconciled 11/12/23 by Gregoria Mccloud MD clotrimazole-betamethasone 1-0.05 % 1 appl topical BID escitalopram oxalate (Lexapro) 10 mg PO DAILY fluticasone propion-salmeterol 250-50 mcg/dose (Advair Diskus) 1 inh inhalation BID inhalational spacing device As directed with inhaler ketoconazole 2% 1 appl topical BID lisinopril-hydrochlorothiazide 10-12.5 mg 1 tab PO DAILY montelukast (Singulair) 10 mg PO DAILY rosuvastatin 20 mg PO DAILY thyroid (pork) ([place] Thyroid) 90 mg PO DAILY Tobacco use date assessed: 11/12/23 Fall risk assessment: 1 Fall in past year Last assessed Fall Risk: 11/12/23 Dental Screening Dental Screen Date: 11/12/23 Did you have a dental visit in the last 12 months?: Yes Did you have a dental problem in the last 6 months where you did not have access to dental care?: No Was dental information given to patient?: Patient has dentist HPI 4 month follow up HPI Details Pt prwsents for HTN, hyperlipid, hypothyroid, stable on meds. Pt c/o hoarseness from Trelegy but improved SOB. Pt c/o cough from Wixela and Advair. She tried Lexapro for chronic anxiety and depression but feels the paroxetine was more effective. Patient reports worrying a lot and the being physically active since she stopped working. Patient denies depression or suicidal ideation change in appetite or sleep pattern. [facility] Medical History (Updated 11/12/23 @ 13:53 by Gregoria Mccloud MD) Anxiety and depression Vitamin D deficiency Vitamin D deficiency disease Carotid artery bruit Osteopenia Annual physical exam Knee pain, left Sciatica Hypothyroidism Asthma Overweight Hyperlipidemia HTN (hypertension) Surgical History Hx of total knee replacement Family History Father Heart attack Mother No problems noted. Social History Housing: House Patient Tobacco Use Status: Never used Tobacco e-Cigarette/Vaping Use: Never Used service: No Current occupational status: retired Cognitive needs: No Hearing needs: No Vision needs: Yes Questionnaire PHQ-9 Over the last 2 weeks, how often have you been bothered by any of the following problems? 1. Little interest or pleasure in doing things: more than half the days 2. Feeling down, depressed, or hopeless: several days 3. Trouble falling or staying asleep, or sleeping too much: several days 4. Feeling tired or having little energy: several days 5. Poor appetite or overeating: several days 6. Feeling bad about yourself - or that you are a failure or have let yourself or your family down: several days 7. Trouble concentrating on things, such as reading the newspaper or watching television: several days 8. Moving or speaking so slowly that other people could have noticed. Or the opposite - being so fidgety or restless that you have been moving around a lot more than usual: not at all 9. Thoughts that you would be better off or of hurting yourself in some way: not at all Total score: 8 Depression Screening Interpretation: Negative Depression Screening Done: Yes [id number] - PHQ-9 Billing: Yes Source: Developed by Drs. Nico Aly, Dea Siegel, Rome Garcia and colleagues, with an educational deandre from [employer]. Thrive Questionnaire Date Thrive assessed: 11/12/23 I am a: Patient What is your living situation today?: I have a steady place to live Within the past 12 months, did the food you bought not last and you didn't have the money to get more?: I choose not to answer this question Within the past 12 months, did you worry whether your food would run out before you got money to buy more?: I choose not to answer this question Do you have trouble paying for medicines?: No Do you have trouble getting transportation to medical appointments?: No Do you have trouble paying your heating and electricity bill?: No Do you have trouble taking care of your child, family member or friend?: No Do you have trouble with day-to-day activities such as bathing, preparing meals, shopping, managing finances, etc.?: No Are you currently unemployed and looking for a job?: No Are you interested in more education?: No Please select the resources that you would like help with: Housing/[facility] Currently or been in a relationship where the following occur: I choose not to answer THRIVE Score: 0 AUDIT C Alcohol Use Questionnaire (AUDIT-C) 1. How often do you have a drink containing alcohol?: 2-4 times a month 2. How many drinks containing alcohol do you have on a typical day when you are drinking?: 1 or 2 3. How often do you have six or more drinks on one occasion?: Never Total Score: 2 SASHA-7 AMB Questionnaire SASHA-7 Date SASHA - 7 assessed: 11/12/23 Feeling nervous, anxious, or on edge: 1 = Several days Not being able to stop or control worryin = Several days Worrying too much about different things: 1 = Several days Trouble relaxin = Several days Being so restless that it is hard to sit still: 1 = Several days Becoming easily annoyed or irritable: 1 = Several days Feeling afraid as if something awful might happen: 1 = Several days Total SASHA-7 score (0-4 normal; 5-9 mild; 10-14 moderate; 15-21 severe): 7 Source: Developed by Drs. Nico Aly, Dea Siegel, Rome Garcia and colleagues, with an educational deandre from [employer]. Review of Systems Const All systems reviewed & are unremarkable except as noted in HPI and below ENT Reports no additional complaints Card Reports no additional complaints Resp Reports no additional complaints GI Reports no additional complaints Reports no additional complaints Physical exam (Primary Care) Vital Signs: Last Vital Signs Pulse 80 11/12/23 12:47 BP 124/74 11/12/23 12:47 Pulse Ox 96 11/12/23 12:47 Oxygen Delivery Method Room Air 11/12/23 12:47 BMI result Body Mass Index 30.5 Tobacco/Smoking Status: Tobacco use Status Tobacco use date assessed 11/12/23 11/12/23 12:48 Patient Tobacco Use Status Never used Tobacco 11/12/23 12:48 e-Cigarette/Vaping Use Never Used 11/12/23 12:46 PHQ-9: PHQ-9 Score PHQ-9: Total score 8 11/12/23 12:55 Depression Screening Interpretation: Negative Thrive Assessment: Date of Thrive Assessment Date Thrive assessed 11/12/23 11/12/23 12:55 Currently or been in a relationship where the following occur: I choose not to answer Const General: no acute distress HENMT Mouth: Normal oral and palatal mucosa present Resp Effort & Inspection: normal respiratory effort Auscultation: clear to auscultation bilaterally Cardio Rhythm: regular rhythm Heart sounds: S1 normal heart sound present and S2 normal heart sound present GI Inspection: Yes normal to inspection Palpation (GI): Soft to palpation Percussion: Yes normal to percussion Assessment and Plan Assessment & Plan (1) Anxiety and depression: Code(s): F41.9 - Anxiety disorder, unspecified; F32.9 - Major depressive disorder, single episode, unspecified Plan: Patient will restart paroxetine. Counseling was recommended but she declined. Stress management and restarting yoga and mindfulness discussed with the patient (2) Asthma: Comment: Advair not covered by insurance Symbicort not affective, Wixela caused increased cough Code(s): J45.909 - Unspecified asthma, uncomplicated Plan: Patient will try Trelegy every other day if it is not effective Anoro will be tried instead (3) Hyperlipidemia: Code(s): E78.5 - Hyperlipidemia, unspecified Plan: cont statin (4) Hypothyroidism: Code(s): E03.9 - Hypothyroidism, unspecified Plan: cont med (5) HTN (hypertension): Code(s): I10 - Essential (primary) hypertension Plan: cont Lisinopril Medications: New paroxetine HCl 10 mg PO DAILY 90 tabs 1RF Discontinued escitalopram oxalate (Lexapro) Discontinued Reason: Doctor's Order 10 mg PO DAILY 90 tabs 0RF Coding Level of Care Code Est Pt Level 4 (69784) Diagnoses Anxiety and depression F41.9; F32.9 Asthma J45.909 Hyperlipidemia E78.5 Hypothyroidism E03.9 HTN (hypertension) I10
[2023-11-12 12:47] VITALS: BP 124/74; PULSE 80; O2SAT 96; BMI 30.5
== END 2023-11-12 13:54 | disposition home or self-care (01) ==
PROVIDERS: PCP Internal Medicine; Visit Provider Internal Medicine
DX: F41.9 Anxiety disorder, unspecified (principal); J45.909 Unspecified asthma, uncomplicated; E78.5 Hyperlipidemia, unspecified; E03.9 Hypothyroidism, unspecified; F32.9 Major depressive disorder, single episode, unspecified; I10 Essential (primary) hypertension
CPT/HCPCS: 99214

== ENCOUNTER 2024-01-03 09:29 | Outpatient (AMB) | payer MEDICARE, OTHER, SELFPAY ==
[2024-01-03 09:31] VITALS: BP 124/66; PULSE 74; O2SAT 96; BMI 30.9
--- NOTE | 2024-01-03 09:31 | MHC.PC.OV ---
Vital Signs 01/03/24 09:31 Height 5 ft 2 in Weight 169 lb BMI 30.9 BP 124/66 Blood Pressure Location Rt brachial Position Sitting Pulse 74 Pulse Source Pulse Oximeter Pulse Oximetry (%) 96 Oxygen Delivery Method Room Air Intake Visit Reasons: Follow up Intake Note: Pt is here today for a follow up visit. Allergies fluticasone furoate [From Trelegy Ellipta] Adverse Reaction (Verified 01/03/24 10:04) hoarseness umeclidinium [From Trelegy Ellipta] Adverse Reaction (Verified 01/03/24 10:04) hoarseness vilanterol [From Trelegy Ellipta] Adverse Reaction (Verified 01/03/24 10:04) hoarseness Tobacco use date assessed: 01/03/24 Dental Screening Dental Screen Date: 11/12/23 HPI Follow up HPI Details Patient presents for the follow-up. She complains of hoarseness and and worsening cough when using Trelegy. Advair or Symbicort. Patient has not been using any inhaler for 1 week and denies any coughing wheezing or shortness or breath. Patient reports seasonal allergy and has been taking Zyrtec on and off. She never smoked cigarettes. Patient has been taking singulair for asthma and seasonal allergies and used to take allergy shots. Hypertension is controlled on lisinopril. Patient reports dyspnea on exertion when walking up the stairs or doing housework but denies chest pain palpitations PND orthopnea. [facility] Medical History (Updated 01/03/24 @ 15:46 by Gregoria Mccloud MD) Anxiety and depression Vitamin D deficiency Vitamin D deficiency disease Carotid artery bruit Osteopenia Annual physical exam Knee pain, left Sciatica Hypothyroidism Asthma Overweight Hyperlipidemia HTN (hypertension) Surgical History Hx of total knee replacement Family History Father Heart attack Mother No problems noted. Social History Housing: House Patient Tobacco Use Status: Never used Tobacco e-Cigarette/Vaping Use: Never Used service: No Current occupational status: retired Cognitive needs: No Hearing needs: No Vision needs: Yes Questionnaire Thrive Questionnaire Date Thrive assessed: 11/05/23 I am a: Patient What is your living situation today?: I have a steady place to live Within the past 12 months, did the food you bought not last and you didn't have the money to get more?: I choose not to answer this question Within the past 12 months, did you worry whether your food would run out before you got money to buy more?: I choose not to answer this question Do you have trouble paying for medicines?: No Do you have trouble getting transportation to medical appointments?: No Do you have trouble paying your heating and electricity bill?: No Do you have trouble taking care of your child, family member or friend?: No Do you have trouble with day-to-day activities such as bathing, preparing meals, shopping, managing finances, etc.?: No Are you currently unemployed and looking for a job?: No Are you interested in more education?: No Please select the resources that you would like help with: None Currently or been in a relationship where the following occur: I choose not to answer THRIVE Score: 0 SASHA-7 AMB Questionnaire SASHA-7 Date SASHA - 7 assessed: 11/12/23 Source: Developed by Drs. Nico Aly, Dea Siegel, Rome Garcia and colleagues, with an educational deandre from [employer]. Review of Systems Const All systems reviewed & are unremarkable except as noted in HPI and below Card Reports no additional complaints Resp Reports no additional complaints GI Reports no additional complaints Reports no additional complaints Physical exam (Primary Care) Vital Signs: Last Vital Signs Pulse 74 01/03/24 09:31 BP 124/66 01/03/24 09:31 Pulse Ox 96 01/03/24 09:31 Oxygen Delivery Method Room Air 01/03/24 09:31 BMI result Body Mass Index 30.9 Tobacco/Smoking Status: Tobacco use Status Tobacco use date assessed 01/03/24 01/03/24 09:35 Patient Tobacco Use Status Never used Tobacco 01/03/24 09:35 e-Cigarette/Vaping Use Never Used 01/03/24 09:35 Thrive Assessment: Date of Thrive Assessment Date Thrive assessed 11/05/23 01/03/24 09:35 Currently or been in a relationship where the following occur: I choose not to answer Const General: no acute distress HENMT Head: Yes normal to inspection Eyes General: appearance normal, both eyes and all related structures Neck Neck: Yes supple Resp Effort & Inspection: normal respiratory effort Auscultation: clear to auscultation bilaterally Cardio Rhythm: regular rhythm Heart sounds: S1 normal heart sound present and S2 normal heart sound present GI Inspection: Yes normal to inspection Palpation (GI): Soft to palpation Percussion: Yes normal to percussion Assessment and Plan Assessment & Plan (1) Asthma: Comment: Advair not covered by insurance Symbicort not affective, Wixela caused increased cough, Trelegy caused hoarseness Code(s): J45.909 - Unspecified asthma, uncomplicated Plan: Continue singulair and albuterol p.r.n. obtain PFTs (2) HTN (hypertension): Code(s): I10 - Essential (primary) hypertension Plan: Continue current medications (3) BERRIOS (dyspnea on exertion): Code(s): R06.09 - Other forms of dyspnea Plan: Obtain echocardiogram Orders: Orders PFT pulmonary function test Today J45.909 - Unspecified asthma, uncomplicated CA echo transthoracic complete Today J45.909 - Unspecified asthma, uncomplicated, R06.09 - Other forms of dyspnea Coding Level of Care Code Est Pt Level 4 (72172) Diagnoses Asthma J45.909 HTN (hypertension) I10 BERRIOS (dyspnea on exertion) R06.09
== END 2024-01-03 10:21 | disposition home or self-care (01) ==
PROVIDERS: PCP Internal Medicine; Visit Provider Internal Medicine
DX: J45.909 Unspecified asthma, uncomplicated (principal); I10 Essential (primary) hypertension; R06.09 Other forms of dyspnea

== ENCOUNTER → 2024-01-03 09:29 | Outpatient (BNVA) | payer MEDICARE, OTHER, SELFPAY | PROVIDERS: PCP Internal Medicine; Visit Provider Internal Medicine | DX: J45.909 Unspecified asthma, uncomplicated (principal); I10 Essential (primary) hypertension; R06.09 Other forms of dyspnea | CPT/HCPCS: 99212 ==

== ENCOUNTER → 2024-01-14 08:46 | Outpatient (REF) | payer MEDICARE, OTHER, SELFPAY ==
--- NOTE | 2024-01-14 08:49 | CA_ITS ---
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 The calculated ejection fraction is 69% by biplane method. - No obvious valvular pathology seen on this study. Findings Left Ventricle Normal left ventricular cavity size. There is normal left ventricular wall thickness. The left ventricular systolic function is normal. The calculated ejection fraction is 69% by biplane method. There is no evidence of regional wall motion abnormalities. Diastolic function is normal for age. Right Ventricle Normal right ventricular cavity size and systolic function. Atria Both atria are normal in size. Aortic Valve The aortic valve was not well visualized. There is no aortic valve stenosis. There is no aortic valve regurgitation. Mitral Valve The mitral valve appears normal. There is no mitral valve regurgitation. There is no mitral valve stenosis. Pulmonic Valve The pulmonic valve is likely normal. Tricuspid Valve There is trace tricuspid valve regurgitation. There is no evidence of pulmonary hypertension. Great Vessels The aortic annulus, sinuses of valsalva, and asc aorta are normal in size. Venous The inferior vena cava is normal in size and collapses greater than 50% with inspiration. Pericardium/Pleural There is no evidence of pericardial effusion. Prior Study Comparison No prior study available for comparison. Recommendations, Care & Conclusions No obvious valvular pathology seen on this study. Measurements 2D Linear Measurements IVSd: 0.79 0.6-0.9/0.6-1.0 cm LVIDd: 4.12 3.9-5.3/4.2-5.9 cm LVIDd Index: 2.31 2.4-3.2/2.2-3.1 cm/m2 LVIDs: 2.52 2.0-3.6 cm LVPWd: 0.87 0.7-1.1 cm LA Diam: 2.70 2.7-3.8/3.0-4.0 cm LAIDs Index: 1.52 1.5-2.3 cm/m2 LV Mass: 128.41 67-162/88-224 g LV Mass Index: 72.14 43-95/49-115 g/m2 LVOT Diam: 1.90 3.0+(-)1.3 cm 2D Systolic Function EF 4C: 68.30 >55% EF 2C: 66.90 >55% EF BiP: 68.50 >55% Mitral Valve MV Pk E: 0.65 MV PK A: 0.88 MV Decel Time: 237.00 E/A: 0.70 E'Lateral: 7.94 E'Medial: 7.29 E/E' Med: 8.90 E/E' Lat: 8.20 PHT: 69.00 MVA PHT: 3.19 Decel Letcher: 2.75 Aortic Valve AoV Pk Reji: 1.29 AoV Mn Reji: 0.99 AoV VTI: 0.31 AoV Pk Grad: 7.00 Aov Mn Grad: 4.00 DEVAN Cont.VTI: 1.83 LVOT LVOT Pk Reji: 0.79 LVOT Mn Reji: 0.53 LVOT VTI: 0.20 LVOT Pk Grad: 2.00 LVOT Mn Grad: 1.00 LVOT Diam: 1.90 LVOT Area: 2.84 Diastolic Function MV Pk E: 0.65 MV Pk A: 0.88 E/A: 0.70 E'Medial: 7.29 E/E' Med: 8.90 E' Laterial: 7.94 E/E' Lat: 8.20 Right Ventricle TAPSE (mm): 18.30 TVS' Reji: 12.30 Tricuspid Valve TR Pk Reji: 2.36 TR Pk Grad: 22.00 RA Press: 3.00 RVSP: 25.00 Great Vessels Aorta Sinus of Valsalva: 3.16 2.0-3.[address] [place]: 2.73 1.7-3.4 cm Ao Asc: 3.30 2.1-3.4 cm Updated in Other Vendor System with Status of Final José Luis Valencia MD electronically signed on 01/14/2024 12:20:49 PM with status of Final
== END ==
LOC: HO.CARD 08:46
PROVIDERS: PCP Internal Medicine; Visit Provider Internal Medicine
DX: R06.09 Other forms of dyspnea (principal); J45.909 Unspecified asthma, uncomplicated
CPT/HCPCS: 93306

== ENCOUNTER → 2024-01-14 08:49 | Outpatient (BNV) | payer MEDICARE, OTHER, SELFPAY | PROVIDERS: PCP Internal Medicine; Visit Provider Internal Medicine | DX: I36.1 Nonrheumatic tricuspid (valve) insufficiency (principal) | CPT/HCPCS: 93306 ==

== ENCOUNTER 2024-01-25 18:09 | Outpatient (REF) | payer MEDICARE, OTHER, SELFPAY ==
--- NOTE | ~2024-01-25 | MR_ITS ---
EXAMINATION: MR LUMBAR SPINE WITHOUT CONTRAST CLINICAL INFORMATION: Lumbar radiculopathy. COMPARISON: No prior available. TECHNIQUE: Multiplanar multisequence MR imaging of the lumbar spine was done without IV contrast. Examination was performed on a 1.5 Kristyn Siemens magnet, utilizing standard sequences. Examination submitted for review 03/07/2024 FINDINGS: CORONAL ALIGNMENT: -There is a minimal levoconvex scoliosis, possibly positional SAGITTAL ALIGNMENT: - There is a normal lordosis. -2 mm stairstep type retrolisthesis L1-L2, L2-L3, L3-L4, with a 0.8 cm anterolisthesis of L4 on L5. LUMBOSACRAL JUNCTION: -Normal. There are 5 fcp-ins-sddquvo lumbar-type vertebral bodies. VERTEBRAL BODIES/BONE MARROW: -There are mild ventral edematous endplate changes present at T11-T12. -Prominent Schmorl's node present in the inferior endplate of L1, also within L2. -No abnormal infiltrating abdomen bone marrow signal. -No compression deformities. DISCS: -There is moderate diffuse loss of disc height and signal, with more severe changes seen at T11-T12, L4-L5, and L5-S1. There are disc vacuum phenomenon changes at L4-5 and L5-S1. SPINAL CANAL: -No abnormal developmental findings. CONUS MEDULLARIS: -Terminates at superior endplate of L1. Morphology and signal is normal. INTRADURAL NERVE ROOTS: - Within normal limits. Axial Disc Space Images: T11-T12: Shallow diffuse disc bulge, mild hypertrophic facet changes right greater than left, resulting in mild central canal narrowing, and minimal bilateral neural foraminal narrowing. T12-L1: Mild hypertrophic facet changes bilaterally. There is no significant disc pathology. There is no central canal or neural foraminal narrowing. L1-L2: There is a 3 mm retrolisthesis. There is a minimal shallow diffuse concentric disc bulge. There are mild hypertrophic degenerative facet changes bilaterally, with the findings resulting in minimal central canal narrowing, mild left subarticular recess narrowing, and mild to moderate bilateral neural foraminal narrowing. L2-L3: There is a 3 mm retrolisthesis. There is a shallow diffuse disc bulge present with superimposed bilateral foraminal disc protrusions, which extend lateral to foramen. Coupled with moderate hypertrophic degenerative facet changes, findings result in mild to moderate central canal narrowing, moderate bilateral subarticular recess narrowing without definite impingement of traversing roots, and moderate left greater than right neural foraminal narrowing. L3-L4: There is a subtle retrolisthesis. There is a shallow diffuse disc bulge present with superimposed left foraminal and lateral to foramen disc protrusion. Moderate hypertrophic degenerative facet changes are present with significant posterior ligamentous thickening/infolding. There is moderate central canal stenosis, moderate bilateral subarticular recess stenosis, and mild to moderate bilateral neural foraminal stenosis left greater than right. L4-L5: There is an 8 mm anterolisthesis with disc uncovering. There are end-stage hypertrophic degenerative facet changes bilaterally with severe ligamentous hypertrophy/infolding, and bilateral facet effusions. There is a diffuse disc bulge present extending into both foraminal zones, with a superimposed left foraminal extrusion of disc material (series 10, image 12). Combination of findings is resulting in severe central canal stenosis, severe bilateral subarticular recess stenosis with probable impingement of the left greater than right traversing L5 roots, moderate to severe right and severe left neural foraminal impingement. There is likely impingement of the exiting left L4 root. There is mass effect without definite impingement of the exiting right L4 root. L5-S1: No significant disc bulging or central canal narrowing. There are mildly hypoplastic facets bilaterally with mild degenerative changes of these facets left greater than right. There is no central canal narrowing, or significant neural foraminal narrowing. IMAGED SI JOINTS: -Mild degenerative arthrosis. PARAVERTEBRAL AND INCLUDED EXTRASPINAL SOFT TISSUES: -There is mild atrophy of the inferior paraspinous musculature below the L3-4 disc space. -Normal aorta. -No renal abnormality seen. MR/MR lumbar spine wo con IMPRESSION: 1. Multilevel moderate to severe spondylosis, most severe at L4-5 where there is severe central canal stenosis, severe bilateral subarticular recess stenosis, and severe left greater than right neural foraminal stenosis. There is likely impingement of the traversing L5 roots, and the exiting left L4 roots. 2. There is otherwise no additional high-grade central canal narrowing, subarticular recess narrowing, or neural foraminal narrowing. 3. There are mild stairstep 3 mm retrolistheses of L1 on L2, L2 on L3, and L3 on L4, with an 8 mm grade 1 anterolisthesis of L4 on L5 based upon severe facet degeneration. 4. There are mild edematous endplate changes ventrally at T11-T12. 5. Severe disc degeneration present T11-T12, L4-5, and L5-S1. 6. Refer to the above for additional details. Electronically signed by: Oz Guajardo MD 03/07/2024 04:02 PM [facility]
== END 2024-01-25 18:10 | disposition home or self-care (01) ==
LOC: HO.MRI 18:09
PROVIDERS: PCP Internal Medicine; Visit Provider Internal Medicine
DX: M54.17 Radiculopathy, lumbosacral region (principal); M48.07 Spinal stenosis, lumbosacral region
CPT/HCPCS: 72148

== ENCOUNTER → 2024-01-25 18:09 | Outpatient (BNV) | payer MEDICARE, OTHER, SELFPAY | PROVIDERS: PCP Internal Medicine; Visit Provider Radiology Diagnostic Radiology | DX: M54.17 Radiculopathy, lumbosacral region (principal) | CPT/HCPCS: 72148 ==

== ENCOUNTER 2024-02-05 11:16 | Outpatient (AMB) | payer MEDICARE, OTHER, SELFPAY ==
[2024-02-05 11:27] VITALS: BP 120/62; PULSE 79; O2SAT 96
--- NOTE | 2024-02-05 11:27 | A.OFFPC_ITS ---
Vital Signs 02/05/24 11:27 Height 5 ft 2 in Weight 164 lb BMI 30.0 BP 120/62 Blood Pressure Location Rt brachial Position Sitting Pulse 79 Pulse Source Pulse Oximeter Pulse Oximetry (%) 96 Oxygen Delivery Method Room Air Intake Visit Reasons: 1 months f/up Intake Note: Pt is here today for 1 month follow up visit. Allergies fluticasone furoate [From Trelegy Ellipta] Adverse Reaction (Verified 01/03/24 10:04) hoarseness umeclidinium [From Trelegy Ellipta] Adverse Reaction (Verified 01/03/24 10:04) hoarseness vilanterol [From Trelegy Ellipta] Adverse Reaction (Verified 01/03/24 10:04) hoarseness Medication List - Last Reconciled 02/05/24 by Gregoria Mccloud MD clotrimazole-betamethasone 1-0.05 % 1 appl topical BID diclofenac epolamine 1.3% 1 patch topical BID inhalational spacing device As directed with inhaler ketoconazole 2% 1 appl topical BID lisinopril-hydrochlorothiazide 10-12.5 mg 1 tab PO DAILY montelukast (Singulair) 10 mg PO DAILY PRN paroxetine HCl 10 mg PO DAILY rosuvastatin 20 mg PO DAILY thyroid (pork) ([place] Thyroid) 90 mg PO DAILY Trelegy Ellipta 100-62.5-25 mcg (rioqposwfwl-wclcfoitc-kzodhemx) 1 inh inhalation DAILY NS Tobacco use date assessed: 02/05/24 Dental Screening Dental Screen Date: 11/12/23 HPI 1 months f/up HPI Details Patient presents for the follow-up on hypertension hyperlipidemia hypothyroidism. She reports intermittent dry cough not relieved with a trial of inhalers including Trelegy and Anoro. Patient denies wheezing but reports dyspnea on exertion when walking up the stairs. She denies PND orthopnea chest pains or palpitations. [facility] Medical History Anxiety and depression Vitamin D deficiency Vitamin D deficiency disease Carotid artery bruit Osteopenia Annual physical exam Knee pain, left Sciatica Hypothyroidism Asthma Overweight Hyperlipidemia HTN (hypertension) Surgical History Hx of total knee replacement Family History Father Heart attack Mother No problems noted. Social History Housing: House Patient Tobacco Use Status: Never used Tobacco e-Cigarette/Vaping Use: Never Used service: No Current occupational status: retired Cognitive needs: No Hearing needs: No Vision needs: Yes Questionnaire Thrive Questionnaire Date Thrive assessed: 11/05/23 I am a: Patient What is your living situation today?: I have a steady place to live Within the past 12 months, did the food you bought not last and you didn't have the money to get more?: I choose not to answer this question Within the past 12 months, did you worry whether your food would run out before you got money to buy more?: I choose not to answer this question Do you have trouble paying for medicines?: No Do you have trouble getting transportation to medical appointments?: No Do you have trouble paying your heating and electricity bill?: No Do you have trouble taking care of your child, family member or friend?: No Do you have trouble with day-to-day activities such as bathing, preparing meals, shopping, managing finances, etc.?: No Are you currently unemployed and looking for a job?: No Are you interested in more education?: No Please select the resources that you would like help with: None Currently or been in a relationship where the following occur: I choose not to answer THRIVE Score: 0 SASHA-7 AMB Questionnaire SASHA-7 Date SASHA - 7 assessed: 11/12/23 Source: Developed by Drs. Nico Aly, Dea Siegel, Rome Garcia and colleagues, with an educational deandre from [employer]. Review of Systems Const All systems reviewed & are unremarkable except as noted in HPI and below Card Reports no additional complaints Resp Reports no additional complaints GI Reports no additional complaints Reports no additional complaints Physical exam (Primary Care) Vital Signs: Last Vital Signs Pulse 79 02/05/24 11:27 BP 120/62 02/05/24 11:27 Pulse Ox 96 02/05/24 11:27 Oxygen Delivery Method Room Air 02/05/24 11:27 BMI result Body Mass Index 30.0 Tobacco/Smoking Status: Tobacco use Status Tobacco use date assessed 02/05/24 02/05/24 11:31 Patient Tobacco Use Status Never used Tobacco 02/05/24 11:31 e-Cigarette/Vaping Use Never Used 02/05/24 11:31 Thrive Assessment: Date of Thrive Assessment Date Thrive assessed 11/05/23 02/05/24 11:31 Currently or been in a relationship where the following occur: I choose not to answer HENMT Head: Yes normal to inspection Mouth: Normal oral and palatal mucosa present Throat: Yes posterior oropharynx normal Eyes General: appearance normal, both eyes and all related structures Resp Effort & Inspection: normal respiratory effort Auscultation: clear to auscultation bilaterally Cardio Rhythm: regular rhythm Heart sounds: S1 normal heart sound present and S2 normal heart sound present GI Inspection: Yes normal to inspection Coding Level of Care Code Est Pt Level 4 (58156) Diagnoses BERRIOS (dyspnea on exertion) R06.09 Anxiety and depression F41.9; F32.9 Cough R05.9 Asthma J45.909 Hyperlipidemia E78.5 HTN (hypertension) I10 Hypothyroidism E03.9 Assessment & Plan Assessment & Plan (1) BERRIOS (dyspnea on exertion): Comment: Normal echo 12/2023, Code(s): R06.09 - Other forms of dyspnea Category: Medical Plan: Patient was advised to increase physical activity like walking at least 15 minutes daily. (2) Anxiety and depression: Comment: ON PAROXETINE Code(s): F41.9 - Anxiety disorder, unspecified; F32.9 - Major depressive disorder, single episode, unspecified Category: Medical Plan: Continue paroxetine (3) Cough: Code(s): R05.9 - Cough, unspecified Category: Medical Plan: For chronic cough lisinopril will be changed to valsartan with hydrochlorothiazide 80/12.5. Follow-up in 1 month (4) Asthma: Comment: Advair not covered by insurance Symbicort not affective, Wixela caused increased cough, Trelegy caused hoarseness Code(s): J45.909 - Unspecified asthma, uncomplicated Category: Medical Plan: Patient is awaiting PFTs, (5) Hyperlipidemia: Code(s): E78.5 - Hyperlipidemia, unspecified Category: Medical Plan: Continue statin (6) HTN (hypertension): Code(s): I10 - Essential (primary) hypertension Category: Medical Plan: Change lisinopril to valsartan (7) Hypothyroidism: Code(s): E03.9 - Hypothyroidism, unspecified Category: Medical Plan: Continue [place] thyroid Medications: New valsartan-hydrochlorothiazide 80-12.5 mg 1 tab PO DAILY 30 tabs 1RF Discontinued Trelegy Ellipta 100-62.5-25 mcg (ealdyocgfnj-mexhfkrks-riykwiiw) Discontinued Reason: Doctor's Order 1 inh inhalation DAILY 180 ea 2RF NS lisinopril-hydrochlorothiazide 10-12.5 mg Discontinued Reason: Doctor's Order 1 tab PO DAILY 90 tabs 3RF
== END 2024-02-05 11:54 | disposition home or self-care (01) ==
PROVIDERS: PCP Internal Medicine; Visit Provider Internal Medicine
DX: R06.09 Other forms of dyspnea (principal); F41.9 Anxiety disorder, unspecified; F32.9 Major depressive disorder, single episode, unspecified; R05.9 Cough, unspecified; J45.909 Unspecified asthma, uncomplicated; E78.5 Hyperlipidemia, unspecified; I10 Essential (primary) hypertension; E03.9 Hypothyroidism, unspecified

== ENCOUNTER → 2024-02-05 11:16 | Outpatient (BNVA) | payer MEDICARE, OTHER, SELFPAY | PROVIDERS: PCP Internal Medicine; Visit Provider Internal Medicine | DX: R06.09 Other forms of dyspnea (principal); F41.9 Anxiety disorder, unspecified; F32.9 Major depressive disorder, single episode, unspecified; R05.9 Cough, unspecified; J45.909 Unspecified asthma, uncomplicated; E78.5 Hyperlipidemia, unspecified; I10 Essential (primary) hypertension; E03.9 Hypothyroidism, unspecified; Z79.899 Other long term (current) drug therapy | CPT/HCPCS: 99212 ==

== ENCOUNTER 2024-03-10 12:43 | Outpatient (AMB) | payer MEDICARE, OTHER, SELFPAY ==
[2024-03-10 12:50] VITALS: BP 136/76; PULSE 70; O2SAT 97; BMI 30.4
--- NOTE | 2024-03-10 12:50 | A.OFFPC_ITS ---
Vital Signs 03/10/24 12:50 Height 5 ft 2 in Weight 166 lb BMI 30.4 BP 136/76 Blood Pressure Location Lt brachial Position Sitting Pulse 70 Pulse Source Pulse Oximeter Pulse Oximetry (%) 97 Oxygen Delivery Method Room Air Intake Visit Reasons: 1 months f/up Intake Note: Pt is here today for 1 month follow up visit on MRI results. Allergies lisinopril Adverse Reaction (Intermediate, Verified 03/10/24 13:51) Cough fluticasone furoate [From Trelegy Ellipta] Adverse Reaction (Verified 03/10/24 12:57) hoarseness umeclidinium [From Trelegy Ellipta] Adverse Reaction (Verified 03/10/24 12:57) hoarseness vilanterol [From Trelegy Ellipta] Adverse Reaction (Verified 03/10/24 12:57) hoarseness Medication List - Last Reconciled 03/10/24 by Gregoria Mccloud MD clotrimazole-betamethasone 1-0.05 % 1 appl topical BID diclofenac epolamine 1.3% 1 patch topical BID inhalational spacing device As directed with inhaler ketoconazole 2% 1 appl topical BID montelukast (Singulair) 10 mg PO DAILY PRN paroxetine HCl 20 mg PO DAILY rosuvastatin 20 mg PO DAILY thyroid (pork) ([place] Thyroid) 90 mg PO DAILY valsartan-hydrochlorothiazide 80-12.5 mg 1 tab PO DAILY Tobacco use date assessed: 02/05/24 Dental Screening Dental Screen Date: 11/12/23 HPI 1 months f/up HPI Details Patient presents for the follow-up on hypertension controlled on valsartan. Patient reports coughing improved since stopped taking lisinopril. Patient complains of chronic lower back pain, bilateral hips and knees and has been getting cortisone injections and different joints with temporary relief. Patient had MRI of lumbar spine consistent with severe degenerative changes and spinal stenosis. She denies weakness or numbness in extremities change in bowel bladder function. [facility] Medical History (Updated 03/10/24 @ 14:00 by Gregoria Mccloud MD) Anxiety and depression Vitamin D deficiency Vitamin D deficiency disease Carotid artery bruit Osteopenia Annual physical exam Knee pain, left Sciatica Hypothyroidism Overweight Hyperlipidemia HTN (hypertension) Surgical History Hx of total knee replacement Family History Father Heart attack Mother No problems noted. Social History Housing: House Patient Tobacco Use Status: Never used Tobacco e-Cigarette/Vaping Use: Never Used service: No Current occupational status: retired Cognitive needs: No Hearing needs: No Vision needs: Yes Questionnaire Thrive Questionnaire Date Thrive assessed: 11/05/23 I am a: Patient What is your living situation today?: I have a steady place to live Within the past 12 months, did the food you bought not last and you didn't have the money to get more?: I choose not to answer this question Within the past 12 months, did you worry whether your food would run out before you got money to buy more?: I choose not to answer this question Do you have trouble paying for medicines?: No Do you have trouble getting transportation to medical appointments?: No Do you have trouble paying your heating and electricity bill?: No Do you have trouble taking care of your child, family member or friend?: No Do you have trouble with day-to-day activities such as bathing, preparing meals, shopping, managing finances, etc.?: No Are you currently unemployed and looking for a job?: No Are you interested in more education?: No Please select the resources that you would like help with: None Currently or been in a relationship where the following occur: I choose not to answer THRIVE Score: 0 SASHA-7 AMB Questionnaire SASHA-7 Date SASHA - 7 assessed: 11/12/23 Source: Developed by Drs. Nico Aly, Dea Siegel, Rome Garcia and colleagues, with an educational deandre from [employer]. Review of Systems Const All systems reviewed & are unremarkable except as noted in HPI and below ENT Reports no additional complaints Card Reports no additional complaints Resp Reports no additional complaints GI Reports no additional complaints Reports no additional complaints Physical exam (Primary Care) Vital Signs: Last Vital Signs Pulse 70 03/10/24 12:50 BP 136/76 03/10/24 12:50 Pulse Ox 97 03/10/24 12:50 Oxygen Delivery Method Room Air 03/10/24 12:50 BMI result Body Mass Index 30.4 Tobacco/Smoking Status: Tobacco use Status Tobacco use date assessed 02/05/24 03/10/24 12:52 Patient Tobacco Use Status Never used Tobacco 03/10/24 12:52 e-Cigarette/Vaping Use Never Used 03/10/24 12:52 Thrive Assessment: Date of Thrive Assessment Date Thrive assessed 11/05/23 03/10/24 12:52 Currently or been in a relationship where the following occur: I choose not to answer Const General: no acute distress HENMT Head: Yes normal to inspection Eyes General: appearance normal, both eyes and all related structures Resp Effort & Inspection: normal respiratory effort Auscultation: clear to auscultation bilaterally Cardio Rhythm: regular rhythm Heart sounds: S1 normal heart sound present and S2 normal heart sound present Coding Level of Care Code Est Pt Level 5 (09038) Complex EM visit Add On G2211 Diagnoses HTN (hypertension) I10 Spinal stenosis at L4-L5 level M48.061 Hypothyroidism E03.9 Hyperlipidemia E78.5 Anxiety and depression F41.9; F32.9 Assessment & Plan Assessment & Plan (1) HTN (hypertension): Code(s): I10 - Essential (primary) hypertension Category: Medical Plan: Continue losartan with hydrochlorothiazide check basic metabolic panel today follow-up in 3 months (2) Spinal stenosis at L4-L5 level: Comment: Patient tried cortisone injections with [facility] for many years, MR multilevel moderate to severe spondylosis and disc degeneration from Th11 through S1, severe central canal stenosis at L4-L5 level and severe neural foraminal stenosis on multiple levels 01/2024 Code(s): M48.061 - Spinal stenosis, lumbar region without neurogenic claudication Category: Medical Plan: Referred to neurosurgeon for evaluation. Patient declined physical therapy (3) Hypothyroidism: Code(s): E03.9 - Hypothyroidism, unspecified Category: Medical Plan: Continue [place] thyroid (4) Hyperlipidemia: Code(s): E78.5 - Hyperlipidemia, unspecified Category: Medical Plan: Continue statin follow-up in 3 months with a fasting labs before (5) Anxiety and depression: Comment: ON PAROXETINE Code(s): F41.9 - Anxiety disorder, unspecified; F32.9 - Major depressive disorder, single episode, unspecified Category: Medical Plan: Increase paroxetine to 20 mg a day. Patient declined counseling Orders: Orders Basic Metabolic Panel Today I10 - Essential (primary) hypertension Comprehensive [place]. Panel Fast 3 Months E03.9 - Hypothyroidism, unspecified, E55.9 - Vitamin D deficiency, unspecified, E78.5 - Hyperlipidemia, unspecified, I10 - Essential (primary) hypertension TSH reflex Free T4 3 Months E03.9 - Hypothyroidism, unspecified, E55.9 - Vitamin D deficiency, unspecified, E78.5 - Hyperlipidemia, unspecified, I10 - Essential (primary) hypertension Complete Blood Count Auto Diff 3 Months E03.9 - Hypothyroidism, unspecified, E55.9 - Vitamin D deficiency, unspecified, E78.5 - Hyperlipidemia, unspecified, I10 - Essential (primary) hypertension Vitamin D 25-OH Total 3 Months E03.9 - Hypothyroidism, unspecified, E55.9 - Vitamin D deficiency, unspecified, E78.5 - Hyperlipidemia, unspecified, I10 - Essential (primary) hypertension Lipid Panel 3 Months E03.9 - Hypothyroidism, unspecified, E55.9 - Vitamin D deficiency, unspecified, E78.5 - Hyperlipidemia, unspecified, I10 - Essential (primary) hypertension Referrals Neurosurgery Referral M48.061 - Spinal stenosis, lumbar region without neurogenic claudication Medications: New paroxetine HCl 20 mg PO DAILY 90 tabs 0RF Refilled valsartan-hydrochlorothiazide 80-12.5 mg 1 tab PO DAILY 90 tabs 2RF Discontinued paroxetine HCl Discontinued Reason: Doctor's Order 10 mg PO DAILY 90 tabs 1RF
== END 2024-03-10 14:18 | disposition home or self-care (01) ==
PROVIDERS: PCP Internal Medicine; Visit Provider Internal Medicine
DX: I10 Essential (primary) hypertension (principal); M48.061 Spinal stenosis, lumbar region without neurogenic claudication; E03.9 Hypothyroidism, unspecified; E78.5 Hyperlipidemia, unspecified; F41.9 Anxiety disorder, unspecified; F32.9 Major depressive disorder, single episode, unspecified

== ENCOUNTER → 2024-03-10 12:43 | Outpatient (BNVA) | payer MEDICARE, OTHER, SELFPAY | PROVIDERS: PCP Internal Medicine; Visit Provider Internal Medicine | DX: I10 Essential (primary) hypertension (principal); M48.061 Spinal stenosis, lumbar region without neurogenic claudication; E03.9 Hypothyroidism, unspecified; E78.5 Hyperlipidemia, unspecified; F41.9 Anxiety disorder, unspecified; F32.9 Major depressive disorder, single episode, unspecified | CPT/HCPCS: 99212 ==

== ENCOUNTER 2024-05-30 09:29 | Outpatient (REF) | payer MEDICARE, OTHER, SELFPAY ==
--- OUTSIDE RECORDS SUMMARY | 2024-05-30 09:55 | XMS_ITS | Continuity of Care Document ---
Author Organization [facility] y Address [address] [place] [address] [address], [address] [place] [address]- Care Team Providers Care Pallet Assembler Name Role Phone Gregoria Mccloud MD Primary Care Physician [facility] [id number] Date(s): 05/08/24 - 05/15/24 [facility] [address] [place] [address] Drive [address] [place], [place] [address] Attending Physician: Carloz Lambert MD Referring Physician: Gregoria Mccloud MD Encounter Type: Office Visit Allergies, Adverse Reactions, Alerts No Known Allergies Medications acetaminophen 325 mg oral tablet 650 mg, By Mouth, Every 6 hours, May take OTC, follow directions on bottle, Refills 0, Maintenance,07/09/21 10:03:00 AM EDT, Partial fill upon patient request if the prescription is for a schedule IIopioid drug. Start Date: 07/09/21 Status: Ordered Repeat number: 1 Advair Diskus 250 mcg-50 mcg inhalation powder 1, puffs, Inhalation, 2 times a day, # 180 each, Refills 0, Maintenance, 06/28/21 11:10:00 AM EDT, Powder Start Date: 06/28/21 Status: Ordered Quantity: 180.0 Unit: each Repeat number: 1 [place] Thyroid 90 mg oral tablet TAKE 1 TABLET BY MOUTH DAILY Start Date: 06/28/21 Status: Ordered Repeat number: 1 aspirin 162.5 mg oral capsule, extended release = 325 mg, By Mouth, 2 times a day, enteric coated, 0 Refills, Maintenance, 07/09/21 10:04:00 AM EDT,ER Capsule, Partial fill upon patient request if the prescription is for a schedule II opioid drug. Start Date: 07/09/21 Status: Ordered Repeat number: 1 celecoxib 200 mg oral capsule 1 capsule = 200 mg, By Mouth, Daily, 0 Refills, Maintenance, 07/09/21 10:04:00 AM EDT, Capsule, Partial fill upon patient request if the prescription is for a schedule II opioid drug. Start Date: 07/09/21 Status: Ordered Repeat number: 1 Colace Capsule 100 mg, 1, capsule, By Mouth, 2 times a day, hold for loose stool, Refills 0, Maintenance, 07/09/21 10:04:00 AM EDT, Partial fill upon patient request if the prescription is for a schedule II opioid drug. Start Date: 07/09/21 Status: Ordered Repeat number: 1 hydrochlorothiazide-lisinopril 12.5 mg-10 mg oral tablet 1 tablet, By Mouth, Daily, # 30 tablet, 0 Refills, Maintenance, 06/28/21 11:10:00 AM EDT, Tablet, Partial fill upon patient request if the prescription is for a schedule II opioid drug. Start Date: 06/28/21 Status: Ordered Quantity: 30.0 Unit: tablet Repeat number: 1 hydrochlorothiazide-valsartan 12.5 mg-80 mg oral tablet 0 Refills, Maintenance, 05/08/24 1:13:00 PM EST, Partial fill upon patient request if the prescription is for a schedule II opioid drug. Start Date: 05/08/24 Status: Ordered Repeat number: 1 Maalox Plus Liquid 30 mL, By Mouth, Every 4 hours, PRN Other, Heartburn, 0 Refills, Maintenance, 07/09/21 10:03:00 AM EDT, Suspension, Partial fill upon patient request if the prescription is for a schedule II opioid drug. Start Date: 07/09/21 Status: Ordered Repeat number: 1 Milk of Magnesia Liquid 30 mL, By Mouth, Daily, PRN Constipation, 0 Refills, Maintenance, 07/09/21 10:05:00 AM EDT, Suspension, Partial fill upon patient request if the prescription is for a schedule II opioid drug. Start Date: 07/09/21 Status: Ordered Repeat number: 1 MiraLax Powder 1 pack/packet = 17 Gm, By Mouth, Daily, PRN Constipation, 0 Refills, Maintenance, 07/09/21 10:05:00 AM EDT, Powder, Partial fill upon patient request if the prescription is for a schedule II opioid drug. Start Date: 07/09/21 Status: Ordered Repeat number: 1 pantoprazole 40 mg oral delayed release tablet = 40 mg, By Mouth, Daily, 0 Refills, Maintenance, 07/09/21 10:05:00 AM EDT, EC Tablet Start Date: 07/09/21 Status: Ordered Repeat number: 1 PARoxetine 10 mg oral tablet 10 mg, 1, tablet, By Mouth, Daily at bedtime, TAKE 1 TABLET BY MOUTH EVERY DAY Start Date: 06/28/21 Status: Ordered Repeat number: 1 rosuvastatin 20 mg oral tablet 1 tablet = 20 mg, By Mouth, Daily, # 30 tablet, 5 Refills, Maintenance, 06/28/21 11:10:00 AM EDT, Tablet, Partial fill upon patient request if the prescription is for a schedule II opioid drug. Start Date: 06/28/21 Status: Ordered Quantity: 30.0 Unit: tablet Repeat number: 1 senna 187 mg oral tablet 1 tablet = 8.6 mg, By Mouth, Daily at bedtime, PRN as needed for constipation, 0 Refills, Maintenance, 07/09/21 10:05:00 AM EDT, Tablet, Partial fill upon patient request if the prescription is for a schedule II opioid drug. Start Date: 07/09/21 Status: Ordered Repeat number: 1 Problem List Condition Confirmation Course Effective Dates Status Health St atus Informant Asthma Confirmed Active Hyperlipidemia Confirmed Active Hypertension Confirmed Active Hypothyroidism Confirmed Active Vital Signs Most recent to oldest [Reference Range]: 1 Height 160 cm (05/08/24 1:12 PM) Weight 72.5 kg (05/08/24 1:12 PM) Body Mass Index [18.5-24.99 kg/m2] 28.32 kg/m2 *H* (05/08/24 1:12 PM) Social History Social History Type Response Tobacco Other: Former smoker , quit at age 48.. Sex Sex Representation Female (finding) Patient Care team information Care Team Personnel Name: Gregoria Mccloud MD Position: [facility] Physician - Primary Care Member Role: PCP Address: [address] [place] [address]- Telecom: Name: Pauline Santoyo RN Position: [facility] RN Member Role: Primary Care Nurse Care Team Related Persons Name: RUTHANN REES Name: MARGARITA GRAJEDA Insurance Providers Guarantor name: JOSE REES Health Plan Information #: 4 Payer: [employer] FF NON BHP HMO Member Number: [id number] Policy Number: NA Group Number: [id number] Health Plan Information #: 3 Payer: [facility] [facility] Member Number: [id number] Policy Number: NA Group Number: [id number] Health Plan Information #: 2 Payer: [employer] Member Number: [id number] Policy Number: NA Group Number: [id number] Health Plan Information #: 5 Payer: [employer] Member Number: [id number] Policy Number: NA Group Number: [id number] Health Plan Information #: 1 Payer: MEDICARE PART B OUTPT Member Number: [id number] Policy Number: NA Group Number: [id number]
[2024-05-30 13:05] LABS: MANUAL DIFF FLAG NO
[2024-05-30 13:16] LABS: Basophils Percent Auto 0.9 % (0-2); Eosinophils Absolute Auto 0.2 X10*3/uL (0.0-0.4); Eosinophils Percent Auto 5.1 % (0-4); Imm Gran Abs Auto 0.02 X10*3/uL (0.00-0.03); Imm Gran Pct Auto 0.4 % (0.0-0.4); Lymphocytes Absolute Auto 1.1 X10*3/uL (1.2-4.9); Lymphocytes Percent Auto 24.8 % (20-40); Mean Corpuscular HGB Conc 32.6 g/dl (31.0-35.0); Mean Corpuscular Hemoglobin 31.7 pg (27.0-33.0); Mean Corpuscular Volume 97.5 fL (80.0-98.0); Mean Platelet Volume 10.4 fL (9.4-12.3); Monocytes Absolute Auto 0.6 X10*3/uL (0.1-1.2); Neutrophils Absolute Auto 2.5 x10*3/uL (2.0-8.3); Neutrophils Percent Auto 55.8 % (45-73); Platelet Count 170 X10*3/uL (160-400); Red Blood Count 4.41 X10*6/uL (4.20-5.50); Red Cell Distribution Width 13.6 % (11.0-16.0); White Blood Count 4.6 X10*3/uL (4.8-10.8)
[2024-05-30 14:08] LABS: Alanine Aminotransferase 15 U/L (0-31); Albumin Level 4.1 g/dL (3.5-5.0); Alkaline Phosphatase 51 U/L (39-117); Anion Gap 11 (12-20); Aspartate Amino Transferase 26 U/L (5-31); Bilirubin Total 0.5 mg/dL (0.0-1.0); Blood Urea Nitrogen 22 mg/dL (9-16); Carbon Dioxide 29 mmol/L (22-29); Chloride 105 mmol/L (96-108); Cholesterol 144 mg/dL (<200); Estimated Glomerular Filt Rate 59; Glucose Fasting 92 mg/dL (60-99); HDL Cholesterol 67 mg/dL (>40); LDL Cholesterol Calculated 58 mg/dL (<100); Potassium 4.7 mmol/L (3.3-5.1); Sodium 140 mmol/L (135-145); Total Protein 7.2 g/dL (6.5-8.0); Triglycerides 98 mg/dL (<150)
[2024-05-30 14:11] LABS: TSH reflex Free T4 4.88 uIU/mL (0.32-4.0); Vitamin D 25-OH Total 52.3 ng/mL (>30)
[2024-05-30 14:47] LABS: Free T4 (Free Thyroxine) 0.81 ng/dL (0.71-1.85)
== END 2024-05-30 09:30 | disposition home or self-care (01) ==
LOC: HO.HMGCLDS 09:29
PROVIDERS: PCP Internal Medicine; Visit Provider Internal Medicine
DX: I10 Essential (primary) hypertension (principal); E78.5 Hyperlipidemia, unspecified; E03.9 Hypothyroidism, unspecified; E55.9 Vitamin D deficiency, unspecified
CPT/HCPCS: 36415; 80053; 80061; 82306; 84439; 84443; 85025

== ENCOUNTER 2024-06-03 12:52 | Outpatient (AMB) | payer MEDICARE, OTHER, SELFPAY ==
--- NOTE | 2024-06-03 13:14 | MHC.PC.OV ---
Vital Signs 06/03/24 13:15 Height 5 ft 2 in Weight 162 lb BMI 29.6 BP 120/74 Blood Pressure Location Rt brachial Position Sitting Respiration 18 Pulse 75 Pulse Source Pulse Oximeter Temp 98.3 F Temp Source Oral Pulse Oximetry (%) 95 Oxygen Delivery Method Room Air Intake Visit Reasons: Annual PE Intake Note: Pt is here today for PE. Allergies budesonide [From Symbicort] Adverse Reaction (Intermediate, Verified 06/03/24 14:47) Cough denosumab [From Prolia] Adverse Reaction (Intermediate, Verified 06/03/24 13:57) jaw necrosis formoterol [From Symbicort] Adverse Reaction (Intermediate, Verified 06/03/24 14:47) Cough lisinopril Adverse Reaction (Intermediate, Verified 06/03/24 13:28) Cough alendronate sodium Adverse Reaction (Verified 06/03/24 13:56) jaw necrosis fluticasone furoate [From Trelegy Ellipta] Adverse Reaction (Verified 06/03/24 13:28) hoarseness umeclidinium [From Trelegy Ellipta] Adverse Reaction (Verified 06/03/24 13:28) hoarseness vilanterol [From Trelegy Ellipta] Adverse Reaction (Verified 06/03/24 13:28) hoarseness Medication List - Last Reconciled 06/03/24 by Gregoria Mccloud MD diclofenac epolamine 1.3% 1 patch topical BID gabapentin 200 mg (2 x 100 mg) PO TID inhalational spacing device As directed with inhaler montelukast (Singulair) 10 mg PO DAILY PRN paroxetine HCl 20 mg PO DAILY rosuvastatin 20 mg PO DAILY thyroid (pork) ([place] Thyroid) 90 mg PO DAILY valsartan-hydrochlorothiazide 80-12.5 mg 1 tab PO DAILY Tobacco use date assessed: 06/03/24 Fall risk assessment: No Falls in past year Last assessed Fall Risk: 06/03/24 Dental Screening Dental Screen Date: 06/03/24 Did you have a dental visit in the last 12 months?: Yes Did you have a dental problem in the last 6 months where you did not have access to dental care?: No Was dental information given to patient?: Patient has dentist HPI Annual PE HPI Details Pt presents for PE. Patient complains of chronic lower back pain worse when sitting or standing for long time. She was evaluated by neurosurgeon and surgery was not recommended. Patient was referred to [facility] for physical therapy. She denies weakness or numbness in lower extremities, change in bowel bladder function. Patient complains of dyspnea on exertion when walking up the stairs and noticed on her Apple watch O2 sat dropping at night to 90% patient denies PND orthopnea exercise-induced chest pains or palpitations. Chronic cough resolved after changing lisinopril to valsartan. Patient reports feeling better while using Advair inhaler but her insurance did not cover Advair. She tried Symbicort, Breo, Trelegy in the past but developed side effects and could not tolerate them. [facility] Medical History (Updated 06/03/24 @ 14:50 by Gregoria Mccloud MD) Anxiety and depression Vitamin D deficiency Vitamin D deficiency disease Carotid artery bruit Osteopenia Annual physical exam Knee pain, left Sciatica Hypothyroidism Overweight Hyperlipidemia HTN (hypertension) Surgical History Hx of total knee replacement Family History Father Heart attack Mother No problems noted. Social History Housing: House Patient Tobacco Use Status: Never used Tobacco e-Cigarette/Vaping Use: Never Used service: No Current occupational status: retired Cognitive needs: No Hearing needs: No Vision needs: Yes Questionnaire PHQ-9 Over the last 2 weeks, how often have you been bothered by any of the following problems? 1. Little interest or pleasure in doing things: more than half the days 2. Feeling down, depressed, or hopeless: several days 3. Trouble falling or staying asleep, or sleeping too much: several days 4. Feeling tired or having little energy: several days 5. Poor appetite or overeating: not at all 6. Feeling bad about yourself - or that you are a failure or have let yourself or your family down: not at all 7. Trouble concentrating on things, such as reading the newspaper or watching television: several days 8. Moving or speaking so slowly that other people could have noticed. Or the opposite - being so fidgety or restless that you have been moving around a lot more than usual: not at all 9. Thoughts that you would be better off or of hurting yourself in some way: not at all Total score: 6 Depression Screening Interpretation: Negative Depression Screening Done: Yes 09727 - PHQ-9 Billing: Yes Source: Developed by Drs. Nico Aly, Dea Siegel, Rome Garcia and colleagues, with an educational deandre from [employer]. Thrive Questionnaire Date Thrive assessed: 06/03/24 I am a: Patient What is your living situation today?: I have a steady place to live Within the past 12 months, did the food you bought not last and you didn't have the money to get more?: Never true Within the past 12 months, did you worry whether your food would run out before you got money to buy more?: Never true Do you have trouble paying for medicines?: No Do you have trouble getting transportation to medical appointments?: No Do you have trouble paying your heating and electricity bill?: I choose not to answer this question Do you have trouble taking care of your child, family member or friend?: No Do you have trouble with day-to-day activities such as bathing, preparing meals, shopping, managing finances, etc.?: I choose not to answer this question Are you currently unemployed and looking for a job?: No Are you interested in more education?: No Please select the resources that you would like help with: None Currently or been in a relationship where the following occur: I choose not to answer THRIVE Score: 0 AUDIT C Alcohol Use Questionnaire (AUDIT-C) 1. How often do you have a drink containing alcohol?: 2-4 times a month 2. How many drinks containing alcohol do you have on a typical day when you are drinking?: 1 or 2 3. How often do you have six or more drinks on one occasion?: Never Total Score: 2 SASHA-7 AMB Questionnaire SASHA-7 Date SASHA - 7 assessed: 06/03/24 Feeling nervous, anxious, or on edge: 1 = Several days Not being able to stop or control worryin = Several days Worrying too much about different things: 1 = Several days Trouble relaxin = Several days Being so restless that it is hard to sit still: 0 = Not at all Becoming easily annoyed or irritable: 1 = Several days Feeling afraid as if something awful might happen: 2 = More than half the days Total SASHA-7 score (0-4 normal; 5-9 mild; 10-14 moderate; 15-21 severe): 7 Source: Developed by Drs. Nico Aly, Dea Siegel, Rome Garcia and colleagues, with an educational deandre from [employer]. SASHA-7 Assessment Billing SASHA-7 Assessment Tool: SASHA-7 Assessment 76370 Review of Systems Const All systems reviewed & are unremarkable except as noted in HPI and below Eyes Reports no additional complaints ENT Reports no additional complaints Card Reports no additional complaints Resp Reports no additional complaints GI Reports no additional complaints Reports no additional complaints Physical exam (Primary Care) Vital Signs: Last Vital Signs Temp 98.3 F 06/03/24 13:15 Pulse 75 06/03/24 13:15 Resp 18 06/03/24 13:15 BP 120/74 06/03/24 13:15 Pulse Ox 95 06/03/24 13:15 Oxygen Delivery Method Room Air 06/03/24 13:15 BMI result Body Mass Index 29.6 Tobacco/Smoking Status: Tobacco use Status Tobacco use date assessed 06/03/24 06/03/24 13:33 Patient Tobacco Use Status Never used Tobacco 06/03/24 13:33 e-Cigarette/Vaping Use Never Used 06/03/24 13:15 PHQ-9: PHQ-9 Score PHQ-9: Total score 6 06/03/24 13:33 Depression Screening Interpretation: Negative Thrive Assessment: Date of Thrive Assessment Date Thrive assessed 06/03/24 06/03/24 13:33 Currently or been in a relationship where the following occur: I choose not to answer Const General: no acute distress HENMT Head: Yes normal to inspection Eyes General: appearance normal, both eyes and all related structures Resp Effort & Inspection: normal respiratory effort Auscultation: diminished lung sounds Cardio Rhythm: regular rhythm Heart sounds: S1 normal heart sound present and S2 normal heart sound present GI Inspection: Yes normal to inspection Palpation (GI): Soft to palpation Percussion: Yes normal to percussion Neuro Gait exam (Neuro): Normal gait present Extrem General: Yes no clubbing, cyanosis or edema Coding Level of Care Code Est Pt Prev Care >65y(09586) Diagnoses Sleep apnea G47.30 Asthma J45.909 Anxiety and depression F41.9; F32.9 Spinal stenosis at L4-L5 level M48.061 Annual physical exam Z00.00 Hypothyroidism E03.9 Additional Codes SASHA-7 Assessment Billing - SASHA-7 Assessment Tool: SASHA-7 Assessment 38731 ([id number]) PHQ-9 - 00686 - PHQ-9 Billing: Yes ([id number]) Assessment & Plan Assessment & Plan (1) Sleep apnea: Code(s): G47.30 - Sleep apnea, unspecified Category: Medical Plan: Obtain sleep studies (2) Asthma: Comment: Advair not covered by insurance Symbicort not effective, Wixela caused increased cough, Trelegy caused hoarseness Code(s): J45.909 - Unspecified asthma, uncomplicated Category: Medical Plan: Restart Advair 100/50, obtain chest x-ray and PFTs follow-up in 1 month (3) Anxiety and depression: Comment: ON PAROXETINE Code(s): F41.9 - Anxiety disorder, unspecified; F32.9 - Major depressive disorder, single episode, unspecified Category: Medical Plan: Continue paroxetine (4) Spinal stenosis at L4-L5 level: Comment: Patient tried cortisone injections with [facility] for many years, MR multilevel moderate to severe spondylosis and disc degeneration from Th11 through S1, severe central canal stenosis at L4-L5 level and severe neural foraminal stenosis on multiple levels 01/2024 Code(s): M48.061 - Spinal stenosis, lumbar region without neurogenic claudication Category: Medical Plan: Pain management discussed with the patient gabapentin 200 mg TID we will be started, PATIENT WILL CONTINUE PHYSICAL THERAPY (5) Annual physical exam: Code(s): Z00.00 - Encounter for general adult medical examination without abnormal findings Category: Medical Plan: Well-balanced diet regular physical activity discussed with the patient (6) Hypothyroidism: Code(s): E03.9 - Hypothyroidism, unspecified Category: Medical Plan: Increase [place] Thyroid to 1 tabl daily for 6 days and a 1/2 tabl on the 7th day. Recheck TSH in 2 months Orders: Orders RT home sleep study Today G47.30 - Sleep apnea, unspecified XR chest 1V Today R06.09 - Other forms of dyspnea PFT pulmonary function test Today J45.909 - Unspecified asthma, uncomplicated TSH reflex Free T4 2 Months E03.9 - Hypothyroidism, unspecified Medications: New gabapentin 200 mg (2 x 100 mg) PO TID 180 caps 1RF
[2024-06-03 13:15] VITALS: BP 120/74; PULSE 75; RESP 18; TEMP 36.8; O2SAT 95; BMI 29.6
== END 2024-06-03 14:19 | disposition home or self-care (01) ==
PROVIDERS: PCP Internal Medicine; Visit Provider Internal Medicine
DX: Z00.00 Encounter for general adult medical examination without abnormal findings (principal); G47.30 Sleep apnea, unspecified; J45.909 Unspecified asthma, uncomplicated; F41.9 Anxiety disorder, unspecified; F32.9 Major depressive disorder, single episode, unspecified; M48.061 Spinal stenosis, lumbar region without neurogenic claudication; E03.9 Hypothyroidism, unspecified

== ENCOUNTER → 2024-06-03 12:52 | Outpatient (BNVA) | payer MEDICARE, OTHER, SELFPAY | PROVIDERS: PCP Internal Medicine; Visit Provider Internal Medicine | DX: Z00.00 Encounter for general adult medical examination without abnormal findings (principal); G47.30 Sleep apnea, unspecified; J45.909 Unspecified asthma, uncomplicated; F41.9 Anxiety disorder, unspecified; F32.9 Major depressive disorder, single episode, unspecified; M48.061 Spinal stenosis, lumbar region without neurogenic claudication; E03.9 Hypothyroidism, unspecified | CPT/HCPCS: 96127; 99397 ==

== ENCOUNTER 2024-07-31 12:52 | Outpatient (REF) | payer MEDICARE, OTHER, SELFPAY ==
--- NOTE | 2024-07-31 13:03 | PFT_ITS ---
Indication: Asthma Spirometry [FEV1 to FVC 63%; FEV1 1.44 L; FVC 2.3 L. No significant response to bronchodilators noted.] Lung Volumes [Total lung capacity 100% predicted; residual volume 111% predicted] Diffusion Capacity [DLCO 79% predicted] Comparisons [none] Interpretation [There is an obstructive ventilatory defect consistent with [id number] COPD. No significant response to bronchodilators noted. Lung volumes are within normal limits with a trying of air trapping and there is a mild diffusion impairment. Clinical correlation warranted.] MTDD
[2024-07-31 13:57] VITALS: PULSE 84; O2SAT 95
--- OUTSIDE RECORDS SUMMARY | 2024-07-31 15:39 | XMS_ITS | Data Portability ---
Author Organization [facility], [facility] Address [address] [place] [address] Care Team Providers Care Call Specialist Name Role Phone YANG GOMEZ Primary Care Provider Assessment Encounter Date Assessment Date Assessment LastModified by Organization Details LastModified Time 04/24/2024 04/24/2024 PROBLEM: Left Hi p trochanteric bursitis HISTORY: The patient is an 79-year-old female whom I know well from previous total knee arthroplasty. She presents today with a 6-month history of lateral sided hip pain. She describes pain laterally to palpation. She denies any groin pain. She denies any difficulty donning shoes. She denies increasing limp. Patient is taking Tylenol for symptom control. She describes difficulty sleeping on that side at nighttime. She has not had physical therapy. She is not doing a home exercise program. Patient does describe pain laterally with radiation down towards her knee. The patient's hip symptom profile form was reviewed and included in the record. The patient remains symptomatic and has had unsuccessful history of appropriate conservative therapy (non-surgical medical management). Non surgical medical management has been implemented for 3 months or more to assess effectiveness. Conservative treatment as clinically appropriate for the patient? s current episode of care including, but not limited to, one or more of the following: anti-inflammatory medications, analgesics, flexibility and muscle strengthening exercises, supervised physical therapy (Activities of daily living (ADLs) diminished despite completing a plan of care), activity restrictions as is reasonable, assistive device use, weight reduction as appropriate, and therapeutic injections into the joint as appropriate PFMSH and ROS have been reviewed, updated, and is located in the patient? s chart. PAST MEDICAL HISTORY: Past medical history is significant for hypertension, hypothyroidism, hypercholesteremi a, osteoporosis, back pain PAST SURGICAL HISTORY: Past surgical history includes right total knee MEDICATIONS: List is available for review in the chart . ALLERGIES: Patient reports an allergy to NKDA. Does not report an allergy to metal, latex, Iodine, tape, or adhesives. SOCIAL HISTORY: The patient is retired. She does not consume tobacco or illegal drugs. She is comes with her . She socially consumes alcohol. 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 She has stairs of support system at home. PHYSICAL EXAMINATION: Please see vitals recorded below Mental status: Alert and lucid. Normal insight, affect, and grooming. DIAMOND MOUNTER: Gross motor coordination is intact. No spasticity or clonus noted. Extremities: Calves are soft and non-tender. Skin intact. Palpable pedal pulses equal bilaterally. Peripheral vascular, lymphatic examination, skin, neurological coordination, reflexes, sensation are within normal limits. ORTHOPEDIC EXAMINATION: Negative SLR tests bilaterally. Full ROM of both knees without pain. Patient has no pain with internal/external rotation of the right hip. She is a negative Stinchfield test. She is intact about her 10 degrees. Patient has clearly reproductive pain to palpation on the lateral aspect of her hip. This is posterior lateral aspect of the greater trochanter. There is reproduction of patient's symptoms. IMAGING: X-rays ordered, obtained, and reviewed today on [facility] PACS: AP pelvis, Marking AP of the Right hip, and Direct Lateral of the Right Hip. Demonstrate mild osteoarthritis of the Right hip without bone on bone articulation. IMPRESSION: Right hip trochanteric bursitis PLAN: I reviewed with the patient surgical and nonsurgical means to control symptoms. Based on the patient symptom profile physical examination of the patient is trochanteric bursitis. We discussed the variety of treatment options in the manage the patient's symptoms. Ultimately we elected proceed with intrabursal injection was provided in the office today. I gave the patient a referral for formal outpatient physical therapy for stretching and strengthening. Patient return to the office in 3 months time for reevaluation. Sooner if any issues arise. She understands she is on corticosteroid as often as every 3 months. I explained the patient that this is not likely a surgical diagnosis. The patient knows I will be happy to meet with them again at any time in order to review any additional questions or concerns that they might have. Patient was satisfied with this plan. I attempted to answer all of the patient's questions. [facility] speech recognition tub attendant software was used to create portions of this document. An attempt at proofreading has been made to minimize errors. Please call for corrections. [email or web address] Not available 04/24/2024 12:43:09 Plan of Treatment Reminders Order Date Submit Date Provider Last Modified By Organization Details Last Modified Time Details Appointments RECHECK 15 2024 03:30P Tawana Chan PA-C Not available Not available Not available Lab None recorded. Referral physical therapist referral - (THIS PRESCRIPT ION EXPIRES 30 DAYS FROM DATE LISTED)PH YSICAL THERAPY REFERRALI CD-10: M70.61 (right), M70.62(Le ft), M70.60(Bi lateral)1 . Core stabiliza tion, hip abductor strengthe maddison with focus on eccentric strengthe maddison and balance training. 2. Soft tissue modalitie s including foam rollers as needed.3. Home exercise and stretchin g program.A llow 2-3 visits a week for 6 weeks.Com pleted by: 2024 025 [email or web address] [facility] [place], [address] [place] [address], [place], [address], 07/30/2024 16:56:38 physical therapist referral - (THIS PRESCRIPT ION EXPIRES 30 DAYS FROM DATE LISTED)[facility]P SURGERYIC D-10: M70.61 (right), M70.62(Le ft), M70.60(Bi lateral)1 . Core stabiliza tion, hip abductor strengthe maddison with focus on eccentric strengthe maddison and balance training. 2. Soft tissue modalitie s including foam rollers as needed.3. Home exercise and stretchin g program.A llow 2-3 visits a week for 6 weeks.Com pleted by: 2024 025 [email or web address] Not available 05/06/2024 14:36:37 Procedures None recorded. Surgeries None recorded. Imaging XR, lumbosacr al spine, 4 or more view - 326 lspine 4v 2024 025 [email or web address] 8 [facility], [address], [address], [place], [address], 05/12/2024 10:42:47 XR, lumbar spine, 2 view - 303 L spine 2v 2024 025 [email or web address] [facility], [address], [address], [place], [address], 05/16/2024 09:34:47 XR, hip + pelvis, bilateral , 2 view - 206 2v rt 2024 025 [facility], [address], [address], [place], [address], 05/06/2024 14:36:37 Medication Orders None recorded. Patient TargetsNo targets recorded. Patient InstructionsNo instructions recorded. Reason for Referral Physical Therapist Referral for Trochanteric bursitis of right hip (THIS PRESCRIPTION EXPIRES 30 DAYS FROM DATE LISTED)PHYSICAL THERAPY REFERRAL S/P SURGERYICD-10: M70.61 (right), M70.62(Left), M70.60(Bilateral)1. Core stabilization, hip abductor strengthening with focus on eccentric strengthening and balance training.2. Soft tissue modalities including foam rollers as needed.3. Home exercise and stretching program.Allow 2-3 visits a week for 6 weeks.Completed by: Referring Physician: Abel Del Cid, Orthopedic Surgery, Encounter Date: 04/24/2024 Physical Therapist Referral for Trochanteric bursitis of right hip (THIS PRESCRIPTION EXPIRES 30 DAYS FROM DATE LISTED)PHYSICAL THERAPY REFERRALICD-10: M70.61 (right), M70.62(Left), M70.60(Bilateral)1. Core stabilization, hip abductor strengthening with focus on eccentric strengthening and balance training.2. Soft tissue modalities including foam rollers as needed.3. Home exercise and stretching program.Allow 2-3 visits a week for 6 weeks.Completed by: Referring Physician: Mendoza Chan, Orthopedic Surgery, Encounter Date: 07/30/2024 Results Created Date Observation Date Name Description Value Unit Range Abnormal Flag Note LastModifiedBy Organization Detail LastModifiedTime 04/24/19 25 04/24/2024 XR, hip + pelvi s, bilat eral, 2 view [email or web address]:/ [email or web address] ?Encry pted=s hAaTro YD8dLq bEUv6g %2BXZw aYqtaq 0bqfl% 2Fg9IQ a4ajBk vP9nXo QUaueC m3YtLR FvZlgJ JJ8mAn HZtai3 2q9166 AC0Kqb 3yNWKa jKiQtr MwF INTERFACE [facility] [address], [place], [address], 04/24/2024 10:22:39 04/24/19 25 04/24/2024 XR, hip + pelvi s, bilat eral, 2 view [email or web address]:/ [email or web address] ?Encry pted=s hAaTro YD8dLq bEUv6g %2BXZw aYqtaq 0bqfl% 2Fg9IQ a4ajBk vP9nXo QUaueC m3YtLR FvZlgJ JJ8mAn HZtai3 6h2069 AC0Kqb 3yNWKa jKiQtr MwF INTERFACE [facility] [address], [place], [address], 04/24/2024 10:22:41 05/07/19 25 05/07/2024 XR, lumba r spine , 2 view [email or web address]:/ [email or web address] ?Encry pted=s hAaTro YD8dLq bEUv6g %2BXZw aYqtaq 0bqfl% 2Fg9IQ a4ajBk vP9nXo QUaueC m3YtLR FvZlgJ JJ8mAn HZtai3 3h6136 AC0Kqb 3WFU6O vKiQtr MwF INTERFACE [facility] [address], [place], [address], 05/07/2024 14:14:40 01/22/20 25 05/07/2024 XR, lumba r spine , 2 view http:/ [email or web address] ?Encry pted=s hAaTro YD8dLq bEUv6g %2BXZw aYqtaq 0bqfl% 2Fg9IQ a4ajBk vP9nXo QUaueC m3YtLR FvZl [facility] 3f5812 AC0Kqb 3WFU6O vKiQtr MwF INTERFACE [facility] [address], [place], [address], 05/07/2024 14:14:41 05/08/19 25 01/25/2024 MRI, lumba r spine , w/o contr ast No observ ation record ed. [email or web address] Not Available 05/08 16:19:28 05/12/19 25 05/12/2024 XR, lumbo sacra l spine , 4 or more view http:/ [email or web address] ?Encry pted=s hAaTro YD8dLq bEUv6g %2BXZw aYqtaq 0bqfl% 2Fg9IQ a4ajBk vP9nXo QUaueC m3YtLR FvZl JJ8mAn HZtai3 9n3029 AC0Kqb 3SNUaG nKiQtr MwF INTERFACE [facility] [address], [place], [address], 05/12/2024 10:20:37 05/12/19 25 05/12/2024 XR, lumbo sacra l spine , 4 or more view http:/ [email or web address] ?Encry pted=s hAaTro YD8dLq bEUv6g %2BXZw aYqtaq 0bqfl% 2Fg9IQ a4ajBk vP9nXo QUaueC m3YtLR FvZlgJ JJ8mAn HZtai3 1u5474 AC0Kqb 3SNUaG nKiQtr MwF INTERFACE [facility] [address], [place], [address], 05/12/2024 10:20:39 Result Notes None recorded. Problems Name Problem SNOMED Code Status Onset Date Resolution Date Notes Provider Name and Address Organization Details Recorded Time No complaints 338143141 Active Status : 'I'; Not Available [facility] 4 09:16:35 Spinal stenosis of lumbar region 85882405 Active 2024 Emery Del Rosario MD [address], [place], [address] , [facility] 5 12:17:06 Lumbar spondyloli sthesis 6573392434707 02 Active 2024 Emery eDl Rosario MD [address], [facility] [place], [address] , [facility] 5 12:17:09 History of major orthopedic surgery 637903328 Active 2021 Status : 'A'; Not Available Pending sale to [facility] 4 11:43:56 Problem Notes None recorded. Procedures Surgical History Date Name Laterality Status Provider Name and Address Organization Details Recorded Time 5 Hip Kenalog 1cc Injection, L/R completed Mendoza Chan PA-C [address] [facility], [place], [address], [facility] 07/30/2024 16:31:17 5 Knee Kenalog 1cc L/R completed Mendoza Chan PA-C [address] [facility], [place], [address], [facility] 07/30/2024 16:31:30 5 Hip Kenalog 1cc Injection, L/R completed Abel Del Cid MD [address], [place], [address], [facility] 04/24/2024 10:56:41 4 Sports Knee 4&1 completed Marilyn Bridges PA-C [address], [place], [address], [facility] 03/11/2024 09:17:07 4 Sports Knee 4&1 completed Marilyn Bridges PA-C [address], [place], [address], [facility] 12/13/2023 13:05:53 2 Knee Surgery completed ANSON ADKINS [facility] 07/30/2024 15:35:41 1 Orthopedic Surgery completed Marlena leigh [facility] 05/12/2024 09:53:07 Other completed ANSON ADKINS [facility] 07/30/2024 15:35:41 Imaging Results Imaging Date Name Status LastModified by Organiz ation Details LastModified Time 04/24/2024 XR, hip + pelvis, bilateral, 2 view completed INTERFACE [facility] [address], [place], [address], 04/24/2024 10:22:39 04/24/2024 XR, hip + pelvis, bilateral, 2 view completed INTERFACE [facility] [address], [place], [address], 04/24/2024 10:22:41 05/07/2024 XR, lumbar spine, 2 view completed INTERFACE [facility] [address], [place], [address], 05/07/2024 14:14:40 05/07/2024 XR, lumbar spine, 2 view completed INTERFACE [facility] [address], [place], [address], 05/07/2024 14:14:41 01/25/2024 MRI, lumbar spine, w/o contrast completed [email or web address] Information not available 05/08/2024 16:19:28 05/12/2024 XR, lumbosacral spine, 4 or more view completed INTERFACE [facility] [address], [place], [address], 05/12/2024 10:20:37 05/12/2024 XR, lumbosacral spine, 4 or more view completed INTERFACE [facility] [address] [facility] [address], [place], [address], 05/12/2024 10:20:39 Procedure Notes None recorded. Medical Equipment None Reported. Allergies No known drug allergies Medications Name Sig Start Date Stop Date Status Note LastModified by Organization Details LastModified Time amoxicillin 500 mg capsule TAKE 4 CAPSULES BY MOUTH 1 HOUR PRIOR TO APPOINTME NT 03/11 completed Not Available Not Available Not Available desonide 0.05 % topical cream APPLY TO AFFECTED AREAS TWICE DAILY FOR 14 DAYS active Not Available Not Available No t Available Honaker Thyroid 90 mg tablet TAKE 1 TABLET BY MOUTH EVERY DAY active Not Available Not Available No t Available paroxetine 10 mg tablet active Not Available Not Available Not Available sulfacetami de sodium-sulf ur 10 %-5 % (w/w) topical cleanser LATHER ONTO AFFECTED AREAS, LEAVE 2-5 MINUTES, RINSE. USE DAILY TO TREAT AND PREVENT FLARES active Not Available Not Available No t Available valsartan 80 mg-hydrochl orothiazide 12.5 mg tablet TAKE 1 TABLET BY MOUTH EVERY DAY active Not Available Not Available No t Available paroxetine 20 mg tablet 05/07 completed Not Available Not Available Not Available tacrolimus 0.1 % topical ointment APPLY 1/4 INCH OINTMENT TO THE LEFT UPPER LID TWICE DAILY FOR EYELID DERMATITI S. 05/12 completed Not Available Not Available Not Available gabapentin 100 mg capsule TAKE 2 CAPSULES ORALLY 3 TIMES A DAY active Not Available Not Available No t Available lisinopril 10 mg-hydrochl orothiazide 12.5 mg tablet TAKE 1 TABLET BY MOUTH EVERY DAY 05/12 completed Not Available Not Available Not Available neomycin 3.5 mg/g-polymy yuki B 10,000 unit/g-dexa meth 0.1 % eye oint APPLY 1/4 INCH OF OINTMENT TO THE LEFT UPPER EYELID TWICE DAILY FOR FIVE DAYS. 04/24 completed Not Available Not Available Not Available escitalopra m 10 mg tablet TAKE 1 TABLET BY MOUTH DAILY. 05/07 completed Not Available Not Available Not Available rosuvastati n 20 mg tablet TAKE 1 TABLET BY MOUTH EVERY DAY active Not Available Not Available No t Available Symbicort 160 mcg-4.5 mcg/actuati on HFA aerosol inhaler INHALE 2 PUFFS BY MOUTH TWICE A DAY 05/12 completed Not Available Not Available Not Available diclofenac epolamine 1.3 % transdermal 12 hour patch active Not Available Not Available Not Available oxycodone HCl-oxycodo ne-ASA 1 qid prn pain 02/27 completed Statu s: 'Disc ontin ued'; Not Available Not Available Not Available [facility] spacer USE DIRECTED WITH INHALER 05/07 completed Not Available Not Available Not Available Xiidra 5 % eye drops in a dropperette INSTILL 1 DROP INTO BOTH EYES TWICE A DAY 05/12 completed Not Available Not Available Not Available Trelegy Ellipta 100 mcg-62.5 mcg-25 mcg powder for inhalation INHALE 1 PUFF DAILY 05/07 completed Not Available Not Available Not Available Wixela Inhub 250 mcg-50 mcg/dose powder for inhalation INHALE 1 DOSE BY MOUTH TWICE DAILY. RINSE MOUTH AFTER USE 05/12 completed Not Available Not Available Not Available Miebo (PF) 100 % eye drops active Not Available Not Available Not Available Vitals Date Recorded Body height Body mass index (BMI) Body weight Provider Name and Address Organization Details Last Updated DateTime 03/11/2024 157.48 cm 31.1 kg/m2 43562.7 g tami gavin [facility] 03/11/2024 08:45:41 Date Recorded Body height Body mass index (BMI) Body weight Provider Name and Address Organization Details Last Updated DateTime 04/24/2024 157.48 cm 31.1 kg/m2 57708.7 g LUIS DIOR [facility] 04/24/2024 10:04:32 Date Recorded Body height Body mass index (BMI) Body weight Provider Name and Address Organization Details Last Updated DateTime 05/07/2024 157.48 cm 31.1 kg/m2 19680.7 g Abby bonilla [facility] 05/07/2024 14:07:43 Date Recorded Body height Body mass index (BMI) Body weight Provider Name and Address Organization Details Last Updated DateTime 05/12/2024 157.48 cm 31.1 kg/m2 46344.7 g Marlena leigh [facility] 05/12/2024 09:53:14 Date Recorded Body height Provider Name an d Address Organization Details Last Updated DateTime 07/30/2024 157.48 cm ANSON ADKINS [facility] 07/30/2024 15:35:44 Social History None recorded. Functional Status None recorded. Mental Status None recorded. Family History Nothing Reported. Medical History Condition Response Thyroid Problems Y Arthritis Y Asthma Y Hypertension Y Gynecological HistoryNo gynecological history recorded. Obstetrics History GPAL:G 0 P 0 0 0 0 Past Encounters Encounter ID Performer Location Encounter Start Date Encounter Closed Date Diagnosis/Indication Diagnosis SNOMED-CT Code Diagnosis ICD10 Code Diagnosis Note [id number] ALVARO [facility] [address] [place] [place] [address] 12/13/2023 10:39:22 01/07/2024 09:52:07 Osteoarthritis of left knee joint 1186779858 44367 M17.12 [id number] [facility] [address] [place] [address] 03/11/2024 08:39:29 04/03/2024 09:13:48 Osteoarthritis of left knee joint 2340903295 39354 M17.12 [id number] MD ELIZABETH [facility] [address] [place] [address] 04/24/2024 09:55:28 05/06/2024 14:36:37 Hip pain 52310770 M25.551 Trochanter ic bursitis of right hip 0848851781 86120 M70.61 [id number] Linda Hickman, [facility] - [facility] [address] [place] [address] 05/07/2024 13:59:59 05/16/2024 09:34:47 Low back pain 821769095 M54.59 Degenerati on of lumbar intervertebral disc 62316268 M51.360 Lumbar spondylolisthesis 8375923534 15288 M43.16 [id number] MD ELIZABETH [facility] - [place] [address] [place] [address] 05/12/2024 09:31:59 05/28/2024 08:46:05 Lumbar spondylosis 459067075 M47.816 Lumbar spondylolisthesis 1085895310 67716 M43.16 Lumbar radiculopathy 128 311881 M54.16 Spinal mikey nosis of lumbar region 79316508 M48.651 [id number] ALVARO [facility] [address] [place] [address] 07/30/2024 15:28:54 07/30/2024 16:32:16 Trochanteric bursitis of right hip 9035342055 56112 M70.61 Osteoarthr itis of left knee joint 0376633153 96798 M17.12 Health Concerns Section Related Observation LastModified by Organization Detai ls LastModified Time None Recorded Concern Status LastModified by Organization Details LastModified Time None Recorded Advance Directives Directive None Recorded Payers Encounter Date Sequence Insurance Name Policy Number Policy Sandoval Covered Member ID Sandoval Member ID Guarantor Name 03/11/2024 1 [place] [employer] Rosalba C [place] [id number] Rosalba Victoriano 03/11/2024 2 [facility] [id number] 1 Rosalba C [place] [id number] Rosalba Victoriano 04/24/2024 1 [place] Rosalba C [place] [id number] Rosalba H[place] 04/24/2024 2 [facility] [id number] 1 Rosalba C Victoriano [id number] Rosalba [place] 05/07/2024 1 [place] Rosalba C Victoriano [id number] Rosalba [place] 05/07/2024 2 [facility] [id number] 1 Rosalba C Victoriano [id number] Rosalba [place] 05/12/2024 1 [place] Rosalba C [place] [id number] Rosalba Victoriano 05/12/2024 2 [facility] [id number] 1 Rosalba C [place] [id number] Rosalba [place] 07/30/2024 1 [place] Rosalba Pastrana [id number] Rosalba Pastrana 07/30/2024 2 [facility] [id number] 1 Rosalba Pastrana [id number] Rosalba Pastrana Notes Date Note Type Note Provider Name and Address Organization Details Recorded Time 4 text/html I am seeing the patient today under the supervision of Dr. Deluca who was available but who did not see the patient. HPI: Patient presenting today with known osteoarthritis of {{the right knee the left knee* bilateral knees}}. Has been responding favorably to conservative treatment. Here today for a cortisone injection. Denies recent injury. No new systemic complaints. Last injection was in November. Past family, medical, social history and review of systems has been reviewed, updated, and is located in the patient? s chart. Examination: Examination of {{the right knee the left knee* bilateral knees}} reveals no effusion, erythema, or warmth. Injection site benign. Decreased range of motion. Point tender {{medial* lateral}} joint line. Calf is soft and nontender. 5/5 strength knee flexion and extension. Impression: {{Right Left* Bilateral} } knee osteoarthritis Plan: The patient was thoroughly counseled today regarding their knee condition, its natural history, and conservative versus surgical treatment options. The patient is interested in receiving an injection with corticosteroid. {{The right knee was The left knee was* Bilateral knees were}} prepped sterilely and an injection was administered utilizing 40mg of Kenalog and 4cc of 0.25% Marcaine. The patient tolerated the procedure well. Post-injection precautions were discussed. Recommended avoiding strenuous activity over the next 24-48 hours. Encouraged elevation of the leg, applying ice, and taking over the counter medication as needed. The patient is aware that the injection can be repeated as often as every 3 months. Marilyn Bridges PA-C [address] [place] [address] [address], [place], [address], [facility] [place] [facility] 03/11/2024 09:17:39 5 text/html I am seeing the patient under the general supervision of Dr. Del Rosario who was available but who did not see the patient. HPI: 79 year old woman presents for evaluation of back pain. Onset 2009, gradual onset. 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 Pain mostly in low back, worse with prolonged standing and walking. + shopping cart sign. Leaning forward on couch to watch TV. Cannot do house work due to pain. Used to do yoga before the pandemic which helped but hasn't gone back. [facility] [place] [facility] were helpful at first but stopped helping, so she came here. She had a lumbar spine MRI at [place] 01/25/2024.Baseline urinary stress incontinence, no bowel incontinence, no saddle anesthesia.Right hip trochanteric bursitis s/p injection 04/24/[address] Del Cid which only helped a little bit. RADICULITIS: none PFMSH and ROS have been reviewed, updated, and it is located in the patient's chart. PRIOR TREATMENTS/MEDICATIONS: tylenol (no help) WORK STATUS: retired [employer] EXAM: examination of the lumbar spineTransitions: Patient able to arise from a seated position without difficulty.Gait: WNL, no limps detected, no assistive device. Able to balance briefly on heels and tip toes.Inspection:--- Erythema - none--- Edema - none--- Deformity - none--- Posture - neutralTenderness:--- Spinous processes - none--- Paraspinal musculature - noneROM:--- Lumbar spine: 75% normal--- Full ROM to hips, knees, anklesLower extremity strength:--- LLE 5/5--- RLE 5/5Neurologic:--- 2+ DTRs--- Positive sensation to light moving touchSpecial tests:--- Negative SLR bilaterally--- Negative ankle clonus bilaterally IMAGING: X rays ordered, obtained, and independently reviewed at [facility] today. 2 views lumbar spine reveals normal lordosis and diffuse spondylosis. Grade 1 spondylolisthesis L4-L5. Severe disc space narrowing L4-L5 and L5-S1- Lumbar spine MRI dated 01/25/2024 report only available, unable to review images. Report states severe spondylosis most severe at L4-L5 with severe central canal stenosis, severe bilateral stenosis, likely impingement of traversing L5 roots and exiting left L4 nerve roots. L4-L5 grade 1 spondylolisthesis with severe facet degeneration. IMPRESSION: Grade 1 spondylolisthesis L4-L5. Lumbar DDD, spinal stenosis PLAN: Findings discussed with the patient today.-Recommend follow-up with surgeon to discuss surgical interventions- declined medications today FOLLOW UP: with surgeon Speech recognition tub attendant software was used to create portions of this document. An attempt at proofreading has been made to minimize errors. Please call for corrections. Linda Hickamn, UNIT AIDE [address], [place], [address], [facility] 05/07/2024 17:17:20 5 text/html Lumbar Spine Evaluation for Chronic Back Pain Subjective:79-year-old female presents with chronic low back pain radiating into the buttocks that has been present for many years and is progressively worsening. Patient reports difficulty with activities of daily living, including house cleaning. Pain is exacerbated by prolonged standing and walking. Patient finds sitting in certain positions provides some relief, though sitting in regular chairs can be uncomfortable. Denies radiation of pain down legs, though notes occasional right hip pain attributed to bursitis. Previous treatment included spinal injections which initially provided relief but eventually became ineffective.Past Medical History: Hypertension, asthma, osteopenia, knee replacement, bursitis. Denies cardiac, renal, hepatic, or diabetic conditions.Previous Interventions: Has undergone physical therapy, medications, and spinal injections with temporary relief. Currently takes vitamin D supplementation. Objective: PHYSICAL EXAM:Respiration Rate 14-16Height and Weight per aboveNormal Development without evidence of gross deformitiesOriented to person/place/timeNormal mood and affectNo swelling in bilateral lower extremitiesHead and Neck: Neck was supple without evidence of defects. No atrophy of the neck was visualized. Spine:Examination of the spine demonstrated no crepitation with palpation of the spinous process.The patient was able to flex and extend. No instability of the spine was demonstrated on physical exam. The spine had good strength and tone.No scars noted. No skin or hair changes- Gait: Normal- Range of Motion: Able to bend forward with good mobility- Neurological: Normal strength in lower extremities bilaterally. Sensation intact. Weak Achilles reflexes bilaterally. Can walk on toes and heels Imaging Studies:-I independently reviewed prior lumbar X-rays AP and lateral: Grade 2 spondylolisthesis at L4-5, poor bone quality, severe facet arthropathy, diffuse disc degeneration worse at L4-5 and L5-S1-I independently reviewed lumbar spine radiographs obtained today to include 2 views flexion and Extension views: Demonstrate mobile spondylolisthesis-I independently reviewed lumbar spine MRI (01/25/2024): Severe spinal stenosis at L4-5 associated with spondylolisthesis. Multiple levels of degenerative change. Assessment and Plan:Assessment:1. Grade 2 spondylolisthesis at L4-5 with severe spinal stenosis and instability2. Diffuse degenerative disc disease and facet arthropathy of lumbar spine3. History of osteopenia with poor bone quality Plan:1. Discussed surgical intervention - L4-5 fusion with decompression- Reviewed surgical procedure, risks, and recovery expectations- Patient to consider surgical option 2. If proceeding with surgical consideration, will need:- Updated DEXA scan- CT scan of lumbar spine- Vitamin D level 3. Encouraged continued exercise and movement within tolerance4. Provided access to exercise program through physician website5. Follow-up after patient decides on treatment path Additional Notes:Patient demonstrates understanding of surgical option but wishes to take time to consider decision. Conservative management options have been exhausted. ? Emery Del Rosario MD [address] [place] [address] [address], [place], [address], [facility] 05/12/2024 12:17:29 5 text/html I am seeing the patient today under the supervision of Dr. Deluca who was available but who did not see the patient. HPI: Patient presenting today with known osteoarthritis of {{the right knee the left knee* bilateral knees}}. Has been responding favorably to conservative treatment. Here today for a cortisone injection. Denies recent injury. No new systemic complaints. Last injection was in November. Past family, medical, social history and review of systems has been reviewed, updated, and is located in the patient? s chart. Examination: Examination of {{the right knee the left knee* bilateral knees}} reveals no effusion, erythema, or warmth. Injection site benign. Decreased range of motion. Point tender {{medial* lateral}} joint line. Calf is soft and nontender. 5/5 strength knee flexion and extension. Impression: {{Right Left* Bilateral} } knee osteoarthritis Plan: The patient was thoroughly counseled today regarding their knee condition, its natural history, and conservative versus surgical treatment options. The patient is interested in receiving an injection with corticosteroid. {{The right knee was The left knee was* Bilateral knees were}} prepped sterilely and an injection was administered utilizing 40mg of Kenalog and 4cc of 0.25% Marcaine. The patient tolerated the procedure well. Post-injection precautions were discussed. Recommended avoiding strenuous activity over the next 24-48 hours. Encouraged elevation of the leg, applying ice, and taking over the counter medication as needed. The patient is aware that the injection can be repeated as often as every 3 months. Problem #2 Reason For VisitThe patient presents today for follow-up. Has known trochanteric bursitis of the Left hip. Has had previous cortisone injection which gave relief until recently. Has had no recent trauma, no fevers or chills, no neurovascular changes. Presents today for further evaluation. Past Medical/Surgical HistoryPast medical history is reviewed per intake sheet. Physical Findings On physical examination, the patient is well appearing and in no apparent distress, alert and oriented x3. Gait is symmetric. Physician examination of the left hip reveals the skin to be intact, normal musculature, continued tenderness on palpation over the greater trochanter. No pain with range of motion of the hip, has full range of motion, no crepitus noted with range of motion. No significant pain with straight leg raise. AssessmentSymptomatic trochanteric bursitis of the Left hip. Plan I reviewed the findings with the patient, discussed different treatment options. The patient wishes to proceed with cortisone injection. Prior to giving injection, does understand the risks. Under sterile technique, given a cortisone injection with 4 cc 1/4 percent Marcaine, 40 mgs Kenalog. Tolerated this well. Monitor the effects and follow-up as needed. Mendoza Chan PA-C [address] [facility] [address], [place], [address], [facility] 07/30/2024 16:32:14 OBGyn Episode No OBEpisode recorded.
== END 2024-07-31 12:53 | disposition home or self-care (01) ==
LOC: HO.RESP 12:52
PROVIDERS: PCP Internal Medicine; Visit Provider Internal Medicine
DX: J45.909 Unspecified asthma, uncomplicated (principal); G47.30 Sleep apnea, unspecified
CPT/HCPCS: 94010; 94640; 94727; 94729; 95806

== ENCOUNTER → 2024-07-31 13:03 | Outpatient (BNV) | payer MEDICARE, OTHER, SELFPAY | PROVIDERS: PCP Internal Medicine; Visit Provider Hospitalist | DX: J45.909 Unspecified asthma, uncomplicated (principal) | CPT/HCPCS: 94060; 94727; 94729 ==

== ENCOUNTER 2024-08-06 12:34 | Outpatient (AMB) | payer MEDICARE, OTHER, SELFPAY ==
[2024-08-06 12:46] VITALS: BP 124/76; PULSE 80; TEMP 36.9; O2SAT 98; BMI 29.3
--- NOTE | 2024-08-06 12:46 | MHC.PC.OV ---
Vital Signs 08/06/24 12:46 Height 5 ft 2 in Weight 160 lb BMI 29.3 BP 124/76 Blood Pressure Location Rt brachial Position Sitting Pulse 80 Pulse Source Pulse Oximeter Temp 98.5 F Temp Source Oral Pulse Oximetry (%) 98 Oxygen Delivery Method Room Air Intake Visit Reasons: Follow up after PFT test Intake Note: Pt is here today for a follow up visit after PFT test. Allergies gabapentin Allergy (Verified 08/06/24 12:53) feeling very tired dizzy budesonide [From Symbicort] Adverse Reaction (Intermediate, Verified 06/03/24 14:47) Cough denosumab [From Prolia] Adverse Reaction (Intermediate, Verified 06/03/24 13:57) jaw necrosis formoterol [From Symbicort] Adverse Reaction (Intermediate, Verified 06/03/24 14:47) Cough lisinopril Adverse Reaction (Intermediate, Verified 06/03/24 13:28) Cough alendronate sodium Adverse Reaction (Verified 06/03/24 13:56) jaw necrosis fluticasone furoate [From Trelegy Ellipta] Adverse Reaction (Verified 06/03/24 13:28) hoarseness umeclidinium [From Trelegy Ellipta] Adverse Reaction (Verified 06/03/24 13:28) hoarseness vilanterol [From Trelegy Ellipta] Adverse Reaction (Verified 06/03/24 13:28) hoarseness Medication List - Last Reconciled 08/06/24 by Gregoria Mccloud MD diclofenac epolamine 1.3% 1 patch topical BID fluticasone furoate-vilanterol 100-25 mcg/dose (Breo Ellipta) 1 inh inhalation DAILY inhalational spacing device As directed with inhaler paroxetine HCl 20 mg PO DAILY rosuvastatin 20 mg PO DAILY thyroid (pork) ([place] Thyroid) 90 mg PO DAILY valsartan-hydrochlorothiazide 80-12.5 mg 1 tab PO DAILY Tobacco use date assessed: 08/06/24 Dental Screening Dental Screen Date: 06/03/24 HPI Follow up after PFT test HPI Details Patient presents for the follow-up on hypertension hyperlipidemia hypothyroidism. She had pulmonary function tests consistent with mild to moderate COPD and mildly decreased diffusion capacity. Patient reports dry cough once in a while and some dyspnea on exertion when walking up the stairs. She denies PND orthopnea chest pain palpitations. She has sleep study down for sleep apnea but results are not available yet [facility] Medical History (Updated 08/06/24 @ 15:10 by Gregoria Mccloud MD) Anxiety and depression Vitamin D deficiency Vitamin D deficiency disease Carotid artery bruit Osteopenia Annual physical exam Knee pain, left Sciatica Hypothyroidism Overweight Hyperlipidemia HTN (hypertension) Surgical History Hx of total knee replacement Family History Father Heart attack Mother No problems noted. Social History Housing: House Patient Tobacco Use Status: Never used Tobacco e-Cigarette/Vaping Use: Never Used service: No Current occupational status: retired Cognitive needs: No Hearing needs: No Vision needs: Yes Questionnaire Thrive Questionnaire Date Thrive assessed: 05/30/24 I am a: Patient What is your living situation today?: I have a steady place to live Within the past 12 months, did the food you bought not last and you didn't have the money to get more?: Never true Within the past 12 months, did you worry whether your food would run out before you got money to buy more?: Never true Do you have trouble paying for medicines?: No Do you have trouble getting transportation to medical appointments?: No Do you have trouble paying your heating and electricity bill?: I choose not to answer this question Do you have trouble taking care of your child, family member or friend?: No Do you have trouble with day-to-day activities such as bathing, preparing meals, shopping, managing finances, etc.?: I choose not to answer this question Are you currently unemployed and looking for a job?: No Are you interested in more education?: No Please select the resources that you would like help with: None Currently or been in a relationship where the following occur: No concerns reported THRIVE Score: 0 SASHA-7 AMB Questionnaire SASHA-7 Date SASHA - 7 assessed: 06/03/24 Source: Developed by Drs. Nioc Aly, Dea Siegel, Rome Garcia and colleagues, with an educational deandre from [employer] Review of Systems Const All systems reviewed & are unremarkable except as noted in HPI and below Eyes Reports no additional complaints ENT Reports no additional complaints Card Reports no additional complaints Resp Reports no additional complaints GI Reports no additional complaints Reports no additional complaints Physical exam (Primary Care) Vital Signs: Last Vital Signs Temp 98.5 F 08/06/24 12:46 Pulse 80 08/06/24 12:46 BP 124/76 08/06/24 12:46 Pulse Ox 98 08/06/24 12:46 Oxygen Delivery Method Room Air 08/06/24 12:46 BMI result Body Mass Index 29.3 Tobacco/Smoking Status: Tobacco use Status Tobacco use date assessed 08/06/24 08/06/24 12:55 Patient Tobacco Use Status Never used Tobacco 08/06/24 12:47 e-Cigarette/Vaping Use Never Used 08/06/24 12:47 Thrive Assessment: Date of Thrive Assessment Date Thrive assessed 05/30/24 08/06/24 12:47 Currently or been in a relationship where the following occur: No concerns reported Const General: no acute distress HENMT Face and sinus: Yes normal facial exam Resp Effort & Inspection: normal respiratory effort Auscultation: clear to auscultation bilaterally Cardio Rhythm: regular rhythm Heart sounds: S1 normal heart sound present and S2 normal heart sound present GI Inspection: Yes normal to inspection Coding Level of Care Code Est Pt Level 4 (24060) Diagnoses HTN (hypertension) I10 Hyperlipidemia E78.5 Hypothyroidism E03.9 COPD (chronic obstructive pulmonary disease) J44.9 Assessment & Plan Assessment & Plan (1) HTN (hypertension): Code(s): I10 - Essential (primary) hypertension Category: Medical Plan: Continue current medications (2) Hyperlipidemia: Code(s): E78.5 - Hyperlipidemia, unspecified Category: Medical Plan: Continue statin (3) Hypothyroidism: Code(s): E03.9 - Hypothyroidism, unspecified Category: Medical Plan: Continue levothyroxine (4) COPD (chronic obstructive pulmonary disease): Comment: PFT 07/2024 mild to moderate COPD Code(s): J44.9 - Chronic obstructive pulmonary disease, unspecified Category: Medical Plan: Start Breo 100 mcg daily follow-up in 3 months with a fasting labs before Orders: Orders Complete Blood Count Auto Diff 3 Months E03.9 - Hypothyroidism, unspecified, E78.5 - Hyperlipidemia, unspecified, I10 - Essential (primary) hypertension, J44.9 - Chronic obstructive pulmonary disease, unspecified Lipid Panel 3 Months E03.9 - Hypothyroidism, unspecified, E78.5 - Hyperlipidemia, unspecified, I10 - Essential (primary) hypertension, J44.9 - Chronic obstructive pulmonary disease, unspecified Comprehensive [place]. Panel Fast 3 Months E03.9 - Hypothyroidism, unspecified, E78.5 - Hyperlipidemia, unspecified, I10 - Essential (primary) hypertension, J44.9 - Chronic obstructive pulmonary disease, unspecified TSH reflex Free T4 3 Months E03.9 - Hypothyroidism, unspecified, E78.5 - Hyperlipidemia, unspecified, I10 - Essential (primary) hypertension, J44.9 - Chronic obstructive pulmonary disease, unspecified Medications: New fluticasone furoate-vilanterol 100-25 mcg/dose (Breo Ellipta) 1 inh inhalation DAILY 60 ea 1RF
--- OUTSIDE RECORDS SUMMARY | 2024-08-06 14:51 | XMS_ITS | Data Portability ---
Author Organization [facility], [facility] Address [address] [place] [address] Care Team Providers Care Assistant Statistician Name Role Phone YANG GOMEZ Primary Care [...] and lucid. Normal insight, affect, and grooming. 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 No spasticity [...] X-rays ordered, obtained, and reviewed today on [facility]: AP pelvis, Marking AP of the [...] to answer all of the patient's questions. [facility] speech recognition breaker up software was used to create portions of this document. An attempt at proofreading has been made to minimize errors. Please call for corrections. [email or web address] Not available 04/24/2024 12:43:09 Plan of Treatment [...] 6 weeks.Com pleted by: 2024 025 [email or web address] [facility], [address] [place] [address], [place], [address], 07/30/2024 16:56:38 physical therapist referral - (THIS PRESCRIPT ION EXPIRES 30 DAYS FROM DATE LISTED)[facility] D-10: M70.61 (right), M70.62(Le ft), M70.60(Bi lateral)1 . Core stabiliza tion, hip abductor strengthe maddison with focus on eccentric strengthe maddison and balance training. 2. Soft tissue modalitie s including foam rollers as needed.3. Home exercise and stretchin g program.A llow 2-3 visits a week for 6 weeks.Com pleted by: 2024 025 Not available 05/06/2024 14:36:37 Procedures None recorded. Surgeries None recorded. Imaging XR, lumbosacr al spine, 4 or more view - 326 lspine 4v 2024 025 [email or web address] [facility], [address], [place], [address], 05/12/2024 10:42:47 XR, lumbar spine, 2 view - 303 L spine 2v 2024 025 [email or web address] [facility], [address], [address], [place], [address], 05/16/2024 09:34:47 XR, hip + pelvis, bilateral , 2 view - 206 2v rt 2024 025 [facility], [address], [address], [place], [address], 05/06/2024 14:36:37 Medication Orders None recorded. Patient [...] a4ajBk vP9nXo QUaueC m3YtLR FvZlgJ JJ8mAn HZtai3 5e1935 AC0Kqb 3yNWKa jKiQtr MwF INTERFACE [facility] [address], [place], [address], 04/24/2024 10:22:39 04/24/19 25 04/24/2024 XR, hip + pelvi s, bilat eral, 2 view [email or web address]:/ [email or web address] ?Encry pted=s hAaTro YD8dLq bEUv6g %2BXZw aYqtaq 0bqfl% 2Fg9IQ a4ajBk vP9nXo QUaueC m3YtLR FvZlgJ JJ8mAn HZtai3 3o2716 AC0Kqb 3yNWKa jKiQtr MwF INTERFACE [facility] [address], [place], [address], 04/24/2024 10:22:41 05/07/19 25 05/07/2024 XR, lumba r spine , 2 view [email or web address]:/ [email or web address] ?Encry pted=s hAaTro YD8dLq bEUv6g %2BXZw aYqtaq 0bqfl% 2Fg9IQ a4ajBk vP9nXo QUaueC m3YtLR FvZlgJ JJ8mAn HZtai3 9d8130 AC0Kqb 3WFU6O vKiQtr MwF INTERFACE [facility] [address], [place], [address], 05/07/2024 14:14:40 01/22/20 25 05/07/2024 XR, lumba r spine , 2 view [email or web address]:/ [email or web address] ?Encry pted=s hAaTro YD8dLq bEUv6g %2BXZw aYqtaq 0bqfl% 2Fg9IQ a4ajBk vP9nXo QUaueC m3YtLR FvZl [facility] 7q7152 AC0Kqb 3WFU6O vKiQtr MwF INTERFACE [facility] [address], [place], [address], 05/07/2024 14:14:41 05/08/19 25 01/25/2024 MRI, lumba r spine , w/o contr ast No observ ation record ed. [email or web address] Not Available 05/08 16:19:28 05/12/19 25 05/12/2024 XR, lumbo sacra l spine , 4 or more view http:/ [email or web address] ?Encry pted=s hAaTro YD8dLq bEUv6g %2BXZw aYqtaq 0bqfl% 2Fg9IQ a4ajBk vP9nXo QUaueC m3YtLR FvZl JJ8mAn HZtai3 7m9687 AC0Kqb 3SNUaG nKiQtr MwF INTERFACE [facility] [address], [place], [address], 05/12/2024 10:20:37 05/12/19 25 05/12/2024 XR, lumbo sacra l spine , 4 or more view http:/ [email or web address] ?Encry pted=s hAaTro YD8dLq bEUv6g %2BXZw aYqtaq 0bqfl% 2Fg9IQ a4ajBk vP9nXo QUaueC m3YtLR FvZlgJ JJ8mAn HZtai3 2s1300 AC0Kqb 3SNUaG nKiQtr MwF INTERFACE [facility] [address], [place], [address], 05/12/2024 10:20:39 Result Notes None recorded. Problems Name Problem SNOMED Code Status Onset Date Resolution Date Notes Provider Name and Address Organization Details Recorded Time No complaints 349130830 Active Status : 'I'; Not Available [facility] 4 09:16:35 Spinal stenosis of lumbar region 77100487 Active 2024 Emery Del Rosario MD [address], [place] [facility] [place] [place], [address] , [facility] 5 12:17:06 Lumbar spondyloli sthesis 2407658479455 02 Active 2024 Emery Del Rosario MD [address], [facility] [place], [address] , [facility] 5 12:17:09 History of major orthopedic surgery 899376116 Active 2021 Status : 'A'; Not Available [facility] 4 11:43:56 Problem Notes None recorded. Procedures Surgical History Date Name Laterality Status Provider Name and Address Organization Details Recorded Time 5 Hip Kenalog 1cc Injection, L/R completed Mendoza Chan PA-C [address] [facility], [place], [address], [facility] 07/30/2024 16:31:17 5 Knee Kenalog 1cc L/R completed Mendoza Chan PA-C [address] [facility], [place], [address], [facility] 07/30/2024 16:31:30 5 Hip Kenalog 1cc Injection, L/R completed Abel Del Cid MD [address], [place], [address], [facility] 04/24/2024 10:56:41 4 Sports Knee 4&1 completed Marilyn Bridges PA-C [address], [place], [address], [facility] 03/11/2024 09:17:07 4 Sports Knee 4&1 completed Marilyn Bridges PA-C [address], [place], [address], [facility] 12/13/2023 13:05:53 2 Knee Surgery completed ANSON ADKINS [facility] 07/30/2024 15:35:41 1 Orthopedic Surgery completed Marlena leigh [facility] 05/12/2024 09:53:07 Other completed ANSON ADKINS [facility] 07/30/2024 15:35:41 Imaging Results Imaging Date Name Status LastModified by Organiz ation Details LastModified Time 04/24/2024 XR, hip + pelvis, bilateral, 2 view completed INTERFACE [facility] [address], [place], [address], 04/24/2024 10:22:39 04/24/2024 XR, hip + pelvis, bilateral, 2 view completed INTERFACE [facility] [address], [place], [address], 04/24/2024 10:22:41 05/07/2024 XR, lumbar spine, 2 view completed INTERFACE [facility] [address], [place], [address], 05/07/2024 14:14:40 05/07/2024 XR, lumbar spine, 2 view completed INTERFACE [facility] [address], [place], [address], 05/07/2024 14:14:41 01/25/2024 MRI, lumbar spine, w/o contrast completed [email or web address] Information not available 05/08/2024 16:19:28 05/12/2024 XR, lumbosacral spine, 4 or more view completed INTERFACE [facility] [address], [place], [address], 05/12/2024 10:20:37 05/12/2024 XR, lumbosacral spine, 4 or more view completed INTERFACE [facility] [address] [facility] [address], [place], [address], 05/12/2024 10:20:39 Procedure Notes None recorded. Medical [...] Not Available Not Available No t Available [place] Thyroid 90 mg tablet TAKE 1 TABLET [...] ued'; Not Available Not Available Not Available [facility] spacer USE DIRECTED WITH INHALER 05/07 completed [...] Updated DateTime 03/11/2024 157.48 cm 31.1 kg/m2 11474.7 g tami gavin [facility] 03/11/2024 08:45:41 Date Recorded Body height Body mass index (BMI) Body weight Provider Name and Address Organization Details Last Updated DateTime 04/24/2024 157.48 cm 31.1 kg/m2 37162.7 g LUIS DIOR [facility] 04/24/2024 10:04:32 Date Recorded Body height Body mass index (BMI) Body weight Provider Name and Address Organization Details Last Updated DateTime 05/07/2024 157.48 cm 31.1 kg/m2 14501.7 g Abby bonilla [facility] 05/07/2024 14:07:43 Date Recorded Body height Body mass index (BMI) Body weight Provider Name and Address Organization Details Last Updated DateTime 05/12/2024 157.48 cm 31.1 kg/m2 19700.7 g Marlena leigh [facility] 05/12/2024 09:53:14 Date Recorded Body height Provider Name an d Address Organization Details Last Updated DateTime 07/30/2024 157.48 cm ANSON ADKINS [facility] 07/30/2024 15:35:44 Social History None recorded. Functional Status None recorded. Mental Status None recorded. Family History Nothing Reported. Medical History Condition Response Arthritis Y Thyroid Problems Y Hypertension Y Asthma Y Gynecological HistoryNo gynecological history recorded. Obstetrics History GPAL:G 0 P 0 0 0 0 Past Encounters Encounter ID Performer Location Encounter Start Date Encounter Closed Date Diagnosis/Indication Diagnosis SNOMED-CT Code Diagnosis ICD10 Code Diagnosis Note [id number] ALVARO [facility] [address] [place] [address] 12/13/2023 10:39:22 01/07/2024 09:52:07 Osteoarthritis of left knee joint 9039535952 34411 M17.12 [id number] [facility] [address] [place] [address] 03/11/2024 08:39:29 04/03/2024 09:13:48 Osteoarthritis of left knee joint 6261972935 42946 M17.12 [id number] MD ELIZABETH [facility] [address] [place] [address] 04/24/2024 09:55:28 05/06/2024 14:36:37 Hip pain 59051651 M25.551 Trochanter ic bursitis of right hip 6885119116 22753 M70.61 [id number] Linda Hickman, TERESA [facility] [address] floor [address] [place] [address] 05/07/2024 13:59:59 05/16/2024 09:34:47 Low back pain 707580743 M54.59 Degenerati on of lumbar intervertebral disc 85504458 M51.360 Lumbar spondylolisthesis 8858900289 81259 M43.16 [id number] MD ELIZABETH [facility] [address] [place] [address] 05/12/2024 09:31:59 05/28/2024 08:46:05 Lumbar spondylosis 684205534 M47.816 Lumbar spondylolisthesis 5719175246 94751 M43.16 Lumbar radiculopathy 128 207098 M54.16 Spinal mikey nosis of lumbar region 67206793 M48.946 [id number] ALVARO Rom[facility] [address] [place] [address] 07/30/2024 15:28:54 07/30/2024 16:32:16 Trochanteric bursitis of right hip 8059627373 00838 M70.61 Osteoarthr itis of left knee joint 2851895835 88711 M17.12 Health Concerns Section Related Observation LastModified by Organization Detai ls LastModified Time None Recorded Concern Status LastModified by Organization Details LastModified Time None Recorded Advance Directives Directive None Recorded Payers Encounter Date Sequence Insurance Name Policy Number Policy Sandoval Covered Member ID Sandoval Member ID Guarantor Name 03/11/2024 1 [place] [employer] Rosalba C [place] [id number] Rosalba Victoriano 03/11/2024 2 [facility] [id number] 1 Rosalba C [place] [id number] Rosalba Victoriano 04/24/2024 1 [place] Rosalba C [place] [id number] Rosalba [place] 04/24/2024 2 [facility] [id number] 1 Rosalba C Victoriano [id number] Rosalba [place] 05/07/2024 1 [place] Rosalba C Victoriano [id number] Rosalba [place] 05/07/2024 2 [facility] [id number] 1 Rosalba C Victoriano [id number] Rosalba [place] 05/12/2024 1 [place] Rosalba C [place] [id number] Rosalba Victoriano 05/12/2024 2 [facility] [id number] 1 Rosalba C [place] [id number] Rosalba [place] 07/30/2024 1 [place] Rosalba Pastrana [id number] Rosalba Pastrana 07/30/2024 2 [facility] [id number] 1 Rosalba Pastrana [id number] Rosalba Pastrana Notes Date Note Type Note [...] as every 3 months. Marilyn Bridges PA-C [address] [place] [address] [address], [place], [address], [facility] - [facility] 03/11/2024 09:17:39 5 text/html I [...] gone back. Back injections years ago at [facility] and sports were helpful at first but stopped helping, so she came here. She had a lumbar spine MRI at [facility] 01/25/2024.Baseline urinary stress incontinence, no bowel incontinence, no saddle anesthesia.Right hip trochanteric bursitis s/p injection 04/24/[address] Del Cid which only helped a little bit. RADICULITIS: none PFMSH and ROS have been reviewed, updated, and it is located in the patient's chart. PRIOR TREATMENTS/MEDICATIONS: tylenol (no help) WORK STATUS: retired [employer] EXAM: examination of the lumbar spineTransitions: Patient [...] rays ordered, obtained, and independently reviewed at [facility] today. 2 views lumbar spine reveals [...] today FOLLOW UP: with surgeon Speech recognition breaker up software was used to create portions of this document. An attempt at proofreading has been made to minimize errors. Please call for corrections. Linda Hickman, RADIOLOGIST CHIEF OF BREAST IMAGING [address], [place], [address], [facility] - [facility] 05/07/2024 17:17:20 5 text/html [...] been exhausted. ? Emery Del Rosario MD [address] [place] [address] [address], [place], [address], [facility] - [facility] 05/12/2024 12:17:29 5 text/html I [...] follow-up as needed. Mendoza Chan PA-C [address] [facility] [address], [place], [address], [facility] - [facility] 07/30/2024 16:32:14 OBGyn Episode No OBEpisode recorded.
== END 2024-08-06 13:32 | disposition home or self-care (01) ==
LOC: HO.HMCC 12:35
PROVIDERS: PCP Internal Medicine; Visit Provider Internal Medicine
DX: I10 Essential (primary) hypertension (principal); E78.5 Hyperlipidemia, unspecified; E03.9 Hypothyroidism, unspecified; J44.9 Chronic obstructive pulmonary disease, unspecified

== ENCOUNTER 2024-08-06 12:34 | Outpatient (REF) | payer MEDICARE, OTHER, SELFPAY ==
[2024-08-06 16:35] LABS: TSH reflex Free T4 2.44 uIU/mL (0.32-4.0)
== END 2024-08-06 12:35 | disposition home or self-care (01) ==
LOC: HO.HMGCLDS 12:34
PROVIDERS: PCP Internal Medicine; Visit Provider Internal Medicine
DX: I10 Essential (primary) hypertension (principal); E78.5 Hyperlipidemia, unspecified; E03.9 Hypothyroidism, unspecified; J44.9 Chronic obstructive pulmonary disease, unspecified; Z79.899 Other long term (current) drug therapy
CPT/HCPCS: 36415; 84443; 99212

== ENCOUNTER 2024-08-29 13:05 | Outpatient (AMB) | payer MEDICARE, OTHER, SELFPAY ==
--- OUTSIDE RECORDS SUMMARY | 2024-08-29 13:07 | XMS_ITS | Data Portability ---
Author Organization [facility], [facility] Address [address] [place] [address] Care Team Providers Care Funeral Pre Need Consultant Name Role Phone YANG GOMEZ Primary Care Provider [phone] Assessment Encounter Date Assessment Date Assessment LastModified [...] and lucid. Normal insight, affect, and grooming. 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 No spasticity [...] X-rays ordered, obtained, and reviewed today on [facility]: AP pelvis, Marking AP of the [...] to answer all of the patient's questions. [facility] speech recognition middle school professional software was used to create portions of this document. An attempt at proofreading has been made to minimize errors. Please call for corrections. [email or web address] Not available 04/24/2024 12:43:09 Plan of Treatment [...] for 6 weeks.Com pleted by: 2024 025 [email or web address] [facility], [address] [place] [address], [place], [address], 08/11/2024 12:47:34 physical therapist referral - (THIS PRESCRIPT ION EXPIRES 30 DAYS FROM DATE LISTED)[facility]P SURGERYIC D-10: M70.61 (right), M70.62(Le ft), M70.60(Bi lateral)1 . Core stabiliza tion, hip abductor strengthe maddison with focus on eccentric strengthe maddison and balance training. 2. Soft tissue modalitie s including foam rollers as needed.3. Home exercise and stretchin g program.A llow 2-3 visits a week for 6 weeks.Com pleted by: 2024 025 [email or web address] Not available 05/06/2024 14:36:37 Procedures None recorded. Surgeries None recorded. Imaging XR, lumbosacr al spine, 4 or more view - 326 lspine 4v 2024 025 [email or web address] [address] [facility], [address], [address], [place], [address], 05/12/2024 10:42:47 XR, lumbar spine, 2 view - 303 L spine 2v 2024 025 [email or web address] [facility], [address], [address], [place], [address], 05/16/2024 09:34:47 XR, hip + pelvis, bilateral , 2 view - 206 2v rt 2024 [email or web address] [facility], [address], [address], [place], [address], 05/06/2024 14:36:37 Medication Orders None recorded. Patient [...] a4ajBk vP9nXo QUaueC m3YtLR FvZlgJ JJ8mAn HZtai3 5f9650 AC0Kqb 3yNWKa jKiQtr MwF INTERFACE [facility] [address], [place], [address], 04/24/2024 10:22:39 04/24/19 25 04/24/2024 XR, hip + pelvi s, bilat eral, 2 view [email or web address]:/ [email or web address] ?Encry pted=s hAaTro YD8dLq bEUv6g %2BXZw aYqtaq 0bqfl% 2Fg9IQ a4ajBk vP9nXo QUaueC m3YtLR FvZlgJ JJ8mAn HZtai3 7e4717 AC0Kqb 3yNWKa jKiQtr MwF INTERFACE [facility] [address], [place], [address], 04/24/2024 10:22:41 05/07/19 25 05/07/2024 XR, lumba r spine , 2 view [email or web address]:/ [email or web address] ?Encry pted=s hAaTro YD8dLq bEUv6g %2BXZw aYqtaq 0bqfl% 2Fg9IQ a4ajBk vP9nXo QUaueC m3YtLR FvZlgJ JJ8mAn HZtai3 6c1214 AC0Kqb 3WFU6O vKiQtr MwF INTERFACE [facility] [address], [place], [address], 05/07/2024 14:14:40 05/07/19 25 05/07/2024 XR, lumba r spine , 2 view [email or web address]:/ [email or web address] ?Encry pted=s hAaTro YD8dLq bEUv6g %2BXZw aYqtaq 0bqfl% 2Fg9IQ a4ajBk vP9nXo QUaueC m3YtLR FvZl [facility] 7z2009 AC0Kqb 3WFU6O vKiQtr MwF INTERFACE [facility] [address], [place], [address], 05/07/2024 14:14:41 05/08/19 25 01/25/2024 MRI, lumba r spine , w/o contr ast No observ ation record ed. Not Available 05/08 16:19:28 05/12/19 25 05/12/2024 XR, lumbo sacra l spine , 4 or more view http:/ [email or web address] ?Encry pted=s hAaTro YD8dLq bEUv6g %2BXZw aYqtaq 0bqfl% 2Fg9IQ a4ajBk vP9nXo QUaueC m3YtLR FvZl JJ8mAn HZtai3 4y6505 AC0Kqb 3SNUaG nKiQtr MwF INTERFACE [facility] [address], [place], [address], 05/12/2024 10:20:37 05/12/19 25 05/12/2024 XR, lumbo sacra l spine , 4 or more view http:/ [email or web address] ?Encry pted=s hAaTro YD8dLq bEUv6g %2BXZw aYqtaq 0bqfl% 2Fg9IQ a4ajBk vP9nXo QUaueC m3YtLR FvZlgJ JJ8mAn HZtai3 2w7405 AC0Kqb 3SNUaG nKiQtr MwF INTERFACE [facility] [address], [place], [address], 05/12/2024 10:20:39 Result Notes None recorded. Problems Name Problem SNOMED Code Status Onset Date Resolution Date Notes Provider Name and Address Organization Details Recorded Time No complaints 312931927 Active Status : 'I'; Not Available [facility] 4 09:16:35 Spinal stenosis of lumbar region 23611851 Active 2024 Emery Del Rosario MD [address], [place], [address] , [facility] 5 12:17:06 Lumbar spondyloli sthesis 0021962677358 02 Active 2024 Emery Del Rosario MD [address], [place], [address] , [facility] 5 12:17:09 History of major orthopedic surgery 113358773 Active 2021 Status : 'A'; Not Available [facility] 4 11:43:56 Problem Notes None recorded. Procedures Surgical History Date Name Laterality Status Provider Name and Address Organization Details Recorded Time 5 Hip Kenalog 1cc Injection, L/R completed Mendoza Chan PA-C [address] [facility], [place], [address], [facility] 07/30/2024 16:31:17 5 Knee Kenalog 1cc L/R completed Mendoza Chan PA-C [address] [facility], [place], [address], [facility] 07/30/2024 16:31:30 5 Hip Kenalog 1cc Injection, L/R completed Abel Del Cid MD [address], [place], [address], [facility] 04/24/2024 10:56:41 4 Sports Knee 4&1 completed Marilyn Bridges PA-C [address], [place], [address], [facility] 03/11/2024 09:17:07 4 Sports Knee 4&1 completed Marilyn Bridges PA-C [address], [place], [address], [facility] 12/13/2023 13:05:53 2 Knee Surgery completed ANSON ADKINS [facility] 07/30/2024 15:35:41 1 Orthopedic Surgery completed Marlena leigh [facility] 05/12/2024 09:53:07 Other completed ANSON ADKINS [facility] 07/30/2024 15:35:41 Imaging Results Imaging Date Name Status LastModified by Organiz ation Details LastModified Time 04/24/2024 XR, hip + pelvis, bilateral, 2 view completed INTERFACE [facility] [address], [place], [address], 04/24/2024 10:22:39 04/24/2024 XR, hip + pelvis, bilateral, 2 view completed INTERFACE [facility] [address], [place], [address], 04/24/2024 10:22:41 05/07/2024 XR, lumbar spine, 2 view completed INTERFACE [facility] [address], [place], [address], 05/07/2024 14:14:40 05/07/2024 XR, lumbar spine, 2 view completed INTERFACE [facility] [address], [place], [address], 05/07/2024 14:14:41 01/25/2024 MRI, lumbar spine, w/o contrast completed [email or web address] Information not available 05/08/2024 16:19:28 05/12/2024 XR, lumbosacral spine, 4 or more view completed INTERFACE [facility] [address], [place], [address], 05/12/2024 10:20:37 05/12/2024 XR, lumbosacral spine, 4 or more view completed INTERFACE [facility] [address], [place], [address], 05/12/2024 10:20:39 Procedure Notes None recorded. Medical [...] Not Available Not Available No t Available Bradford Thyroid 90 mg tablet TAKE 1 TABLET [...] ued'; Not Available Not Available Not Available [employer] [facility] spacer USE DIRECTED WITH INHALER 05/07 completed [...] Updated DateTime 03/11/2024 157.48 cm 31.1 kg/m2 94950.7 g tami gavin [facility] 03/11/2024 08:45:41 Date Recorded Body height Body mass index (BMI) Body weight Provider Name and Address Organization Details Last Updated DateTime 04/24/2024 157.48 cm 31.1 kg/m2 00116.7 g LUIS DIOR [facility] 04/24/2024 10:04:32 Date Recorded Body height Body mass index (BMI) Body weight Provider Name and Address Organization Details Last Updated DateTime 05/07/2024 157.48 cm 31.1 kg/m2 50541.7 g Abby bonilla [facility] 05/07/2024 14:07:43 Date Recorded Body height Body mass index (BMI) Body weight Provider Name and Address Organization Details Last Updated DateTime 05/12/2024 157.48 cm 31.1 kg/m2 04102.7 g Marlena leigh [facility] 05/12/2024 09:53:14 Date Recorded Body height Provider Name an d Address Organization Details Last Updated DateTime 07/30/2024 157.48 cm ANSON ADKINS [facility] 07/30/2024 15:35:44 Social History None recorded. Functional Status None recorded. Mental Status None recorded. Family History Nothing Reported. Medical History Condition Response Arthritis Y Thyroid Problems Y Asthma Y Hypertension Y Gynecological HistoryNo gynecological history recorded. Obstetrics History GPAL:G 0 P 0 0 0 0 Past Encounters Encounter ID Performer Location Encounter Start Date Encounter Closed Date Diagnosis/Indication Diagnosis SNOMED-CT Code Diagnosis ICD10 Code Diagnosis Note [id number] ALVARO [facility] [address] [place] [address] 12/13/2023 10:39:22 01/07/2024 09:52:07 Osteoarthritis of left knee joint 4181206636 64837 M17.12 [id number] AL[facility]O [facility] [address] [place] [address] 03/11/2024 08:39:29 04/03/2024 09:13:48 Osteoarthritis of left knee joint 5217551824 11114 M17.12 [id number] MD ELIZABETH [facility] [address] [place] [address] 04/24/2024 09:55:28 05/06/2024 14:36:37 Pain of hip region 91757338 M25.551 Trochanter ic bursitis of right hip 6085502164 08507 M70.61 [id number] Linda Hickman, TERESA [facility]NS[facility] - [facility] [address] [place] [address] 05/07/2024 13:59:59 05/16/2024 09:34:47 Low back pain 241487122 M54.59 Degenerati on of lumbar intervertebral disc 39643964 M51.360 Lumbar spondylolisthesis 4525721389 88762 M43.16 [id number] MD ELIZABETH [facility] - [place] [address] [place] [address] 05/12/2024 09:31:59 05/28/2024 08:46:05 Lumbar spondylosis 448108878 M47.816 Lumbar spondylolisthesis 0110933382 28008 M43.16 Lumbar radiculopathy 128 470965 M54.16 Spinal mikey nosis of lumbar region 03030778 M48.408 [id number] ALVARO Romo [address] floor [address] [place] [address] 07/30/2024 15:28:54 08/11/2024 12:47:34 Trochanteric bursitis of right hip 1090967882 17272 M70.61 Osteoarthr itis of left knee joint 1021953024 46659 M17.12 Health Concerns Section Related Observation LastModified by Organization Detai ls LastModified Time None Recorded Concern Status LastModified by Organization Details LastModified Time None Recorded Advance Directives Directive None Recorded Payers Encounter Date Sequence Insurance Name Policy Number Policy Sandoval Covered Member ID Sandoval Member ID Guarantor Name 03/11/2024 1 [place] [employer] Rosalba C Madison [id number] Rosalba Madison 03/11/2024 2 [facility] [id number] 1 Rosalba C Madison [id number] Rosalba Madison 04/24/2024 1 [place] Rosalba C Madison [id number] Rosalba Victoriano 04/24/2024 2 [facility] [id number] 1 Rosalba C Victoriano [id number] Rosalba Victoriano 05/07/2024 1 [place] [employer] [place] Rosalba C Madison [id number] Rosalba Madison 05/07/2024 2 [facility] [id number] 1 Rosalba C Victoriano [id number] Rosalba Madison 05/12/2024 1 [place] [employer] Rosalba C Madison [id number] Rosalba Victoriano 05/12/2024 2 [facility] [id number] 1 Rosalba C Victoriano [id number] Rosalba Victoriano 07/30/2024 1 [place] Rosalba Pastrana [id number] Rosalba Pastrana 07/30/2024 2 [facility] [id number] 1 Rosalba Pastrana [id number] Rosalba Pastrana Notes Date Note Type Note [...] as every 3 months. Marilyn Bridges PA-C [address] [facility] [address], [place], [address], [facility] 03/11/2024 09:17:39 5 text/html I am seeing [...] gone back. Back injections years ago at [facility] and sports were helpful at first but stopped helping, so she came here. She had a lumbar spine MRI at [place] 01/25/2024.Baseline urinary stress incontinence, no bowel incontinence, no saddle anesthesia.Right hip trochanteric bursitis s/p injection 04/24/[address] Del Cid which only helped a little bit. RADICULITIS: none PFMSH and ROS have been reviewed, updated, and it is located in the patient's chart. PRIOR TREATMENTS/MEDICATIONS: tylenol (no help) WORK STATUS: retired [employer] EXAM: examination of the lumbar spineTransitions: Patient [...] rays ordered, obtained, and independently reviewed at [facility] today. 2 views lumbar spine reveals [...] today FOLLOW UP: with surgeon Speech recognition middle school professional software was used to create portions of this document. An attempt at proofreading has been made to minimize errors. Please call for corrections. Linda Hickman, HAND SPINNER [address], [place], [address], [facility] 05/07/2024 17:17:20 5 text/html [...] been exhausted. ? Emery Del Rosario MD [address] [place] [address] [address], [place], [address], [facility] 05/12/2024 12:17:29 5 text/html I am seeing [...] follow-up as needed. Mendoza Chan PA-C [address] [facility] [address], [place], [address], [facility] 07/30/2024 16:32:14 OBGyn Episode No OBEpisode recorded.
--- NOTE | 2024-08-29 13:46 | AM.OFFWIN_ITS ---
Intake Vital Signs 08/29/24 13:54 Weight 161 lb BP 110/70 Blood Pressure Location Lt brachial Position Sitting Pulse 90 Pulse Source Pulse Oximeter Pulse Oximetry (%) 97 Oxygen Delivery Method Room Air Intake Visit Reasons: EP losing voice Intake Note: Patient here for loss of voice after starting a new inhaler. Advai diskuz (brand name only) Patient Tobacco Use Status: Never used Tobacco Allergies gabapentin Allergy (Verified 08/29/24 13:53) feeling very tired dizzy budesonide [From Symbicort] Adverse Reaction (Intermediate, Verified 08/29/24 13:53) Cough denosumab [From Prolia] Adverse Reaction (Intermediate, Verified 08/29/24 13:53) jaw necrosis formoterol [From Symbicort] Adverse Reaction (Intermediate, Verified 08/29/24 13:53) Cough lisinopril Adverse Reaction (Intermediate, Verified 08/29/24 13:53) Cough alendronate sodium Adverse Reaction (Verified 08/29/24 13:53) jaw necrosis fluticasone furoate [From Trelegy Ellipta] Adverse Reaction (Verified 08/29/24 13:53) hoarseness umeclidinium [From Trelegy Ellipta] Adverse Reaction (Verified 08/29/24 13:53) hoarseness vilanterol [From Trelegy Ellipta] Adverse Reaction (Verified 08/29/24 13:53) hoarseness Do you need a note to return to daycare/school/sports/work: No HPI HPI Comments History of Present Illness Details History of Present Illness - The patient is an 79-year-old female w ith past med hx of asthma, HTN, HLD, hypothyroid and osteopenia presenting with loss of voice and cough x 2 days which she thinks is potentially related to inhaler use or allergy symptoms. - She has been off all inhalers for thre e months, which led to difficulty performing activities; recent symptoms began after switching from Advair to Breo. - She has a historical loss of voice wit h the generic version of Advair but not the brand-name. - Being on Breo for two weeks, she start ed experiencing symptoms 2 days ago, including mild cough and congestion but no baseline dyspnea or wheezing. - The patient reports allergies for whic h she commenced Zyrtec today - No fevers, sinus pain, ear pain. Physical Exam General: Cooperative, healthy appearing, comfortable, no acute distress and well developed Orientation: Patient oriented x3 Limitations: No limitations Head: Normal to inspection Ears: Hearing grossly normal bilaterally, some fluid left TM, Right TM normal Nose: Normal External nose present Mouth: posterior oropharynx erythema with cobblestoning Face and sinus: Normal facial exam, no pain in the sinuses upon pressure Eyes: Appearance normal, both eyes and all related structures Neck: Normal visual inspection and Yes full ROM Respiratory: Normal respiratory effort and able to speak in complete sentences. Clear to auscultation bilaterally, no shortness of breath or wheezing Cardiovascular: Regular rate and rhythm. Normal S1 and S2 Skin: No rashes or lesions noted Neuro: Patient oriented x3 Extremities: Normal to inspection [facility] Medical History (Updated 08/29/24 @ 14:34 by Latoya Lino PA-C) Anxiety and depression Vitamin D deficiency Vitamin D deficiency disease Carotid artery bruit Osteopenia Annual physical exam Knee pain, left Sciatica Hypothyroidism Overweight Hyperlipidemia HTN (hypertension) Surgical History Hx of total knee replacement Family History Father Heart attack Mother No problems noted. Social History Housing: House Patient Tobacco Use Status: Never used Tobacco e-Cigarette/Vaping Use: Never Used service: No Current occupational status: retired Cognitive needs: No Hearing needs: No Vision needs: Yes Physical Exam Vital Signs: Last Vital Signs Pulse 90 08/29/24 13:54 BP 110/70 08/29/24 13:54 Pulse Ox 97 08/29/24 13:54 Oxygen Delivery Method Room Air 08/29/24 13:54 Assessment & Plan Assessment & Plan (1) Seasonal allergies: Code(s): J30.2 - Other seasonal allergic rhinitis Plan: Plan The patient should continue using Breo inhaler, as symptoms might not be directly linked to its use due to the delayed onset. She should start taking Zyrtec regularly to address the potential allergies, with further assessment by Dr. Mccloud next week to determine if reverting to Advair is necessary. The observation of fluid in the left ear and mild throat redness suggests allergic rhinitis or a minor upper respiratory component. Monitoring allergy symptoms and using daily Zyrtec could render the appointment unnecessary if symptoms resolve. If they persist or escalate, discussing inhaler changes and insurance authorization with Dr. Mccloud becomes essential. Compliance with the prescription and avoidance of noted allergens will assist in alleviating symptoms during the current allergen-heavy season. Patient was informed and verbally consented to the use of an ambient scribe for clinic note documentation during this visit. Coding Level of Care Code Est Pt Level 3 (67448) Diagnoses Seasonal allergies J30.2
[2024-08-29 13:54] VITALS: BP 110/70; PULSE 90; O2SAT 97
== END 2024-08-29 15:10 | disposition home or self-care (01) ==
PROVIDERS: PCP Internal Medicine; Visit Provider Physician Assistant
DX: J30.2 Other seasonal allergic rhinitis (principal)

== ENCOUNTER → 2024-08-29 13:05 | Outpatient (BNVA) | payer MEDICARE, OTHER, SELFPAY | PROVIDERS: PCP Internal Medicine; Visit Provider Physician Assistant | DX: J30.2 Other seasonal allergic rhinitis (principal) | CPT/HCPCS: 99212 ==

== ENCOUNTER 2024-09-05 09:32 | Outpatient (AMB) | payer MEDICARE, OTHER, SELFPAY ==
--- NOTE | 2024-09-05 09:39 | A.OFFPC_ITS ---
Vital Signs 09/05/24 09:41 Height 5 ft 2 in Weight 161 lb BMI 29.4 BP 124/58 L Blood Pressure Location Lt brachial Position Sitting Respiration 16 Pulse 85 Pulse Source Pulse Oximeter Temp 98.1 F Temp Source Oral Pulse Oximetry (%) 95 Oxygen Delivery Method Room Air Intake Visit Reasons: walk in .up Intake Note: Pt is here today to f/u from walkin Allergies gabapentin Allergy (Verified 09/05/24 09:42) feeling very tired dizzy budesonide [From Symbicort] Adverse Reaction (Intermediate, Verified 09/05/24 09:42) Cough denosumab [From Prolia] Adverse Reaction (Intermediate, Verified 09/05/24 09:42) jaw necrosis formoterol [From Symbicort] Adverse Reaction (Intermediate, Verified 09/05/24 09:42) Cough lisinopril Adverse Reaction (Intermediate, Verified 09/05/24 09:42) Cough alendronate sodium Adverse Reaction (Verified 09/05/24 09:42) jaw necrosis fluticasone furoate [From Trelegy Ellipta] Adverse Reaction (Verified 09/05/24 09:42) hoarseness umeclidinium [From Trelegy Ellipta] Adverse Reaction (Verified 09/05/24 09:42) hoarseness vilanterol [From Trelegy Ellipta] Adverse Reaction (Verified 09/05/24 09:42) hoarseness Tobacco use date assessed: 09/05/24 Fall risk assessment: 1 Fall in past year Last assessed Fall Risk: 09/05/24 Dental Screening Dental Screen Date: 09/05/24 Did you have a dental visit in the last 12 months?: Yes Did you have a dental problem in the last 6 months where you did not have access to dental care?: No Was dental information given to patient?: Patient has dentist HPI walk in f.up HPI Details Pt complains of nasal congestion postnasal drip productive cough low- grade fever for 2 weeks. Patient took Z-Isaac for 5 days finished yesterday and is feeling better. COPD is stable on Breo and hypertension controlled on valsartan [facility] Medical History (Updated 09/05/24 @ 19:09 by Gregoria Mccloud MD) Anxiety and depression Vitamin D deficiency Vitamin D deficiency disease Carotid artery bruit Osteopenia Annual physical exam Knee pain, left Sciatica Hypothyroidism Overweight Hyperlipidemia HTN (hypertension) Surgical History Hx of total knee replacement Family History Father Heart attack Mother No problems noted. Social History Housing: House Patient Tobacco Use Status: Never used Tobacco e-Cigarette/Vaping Use: Never Used service: No Current occupational status: retired Cognitive needs: No Hearing needs: No Vision needs: Yes Questionnaire Thrive Questionnaire Date Thrive assessed: 05/30/24 I am a: Patient What is your living situation today?: I have a steady place to live Within the past 12 months, did the food you bought not last and you didn't have the money to get more?: Never true Within the past 12 months, did you worry whether your food would run out before you got money to buy more?: Never true Do you have trouble paying for medicines?: No Do you have trouble getting transportation to medical appointments?: No Do you have trouble paying your heating and electricity bill?: I choose not to answer this question Do you have trouble taking care of your child, family member or friend?: No Do you have trouble with day-to-day activities such as bathing, preparing meals, shopping, managing finances, etc.?: I choose not to answer this question Are you currently unemployed and looking for a job?: No Are you interested in more education?: No Please select the resources that you would like help with: None Currently or been in a relationship where the following occur: No concerns reported THRIVE Score: 0 SASHA-7 AMB Questionnaire SASHA-7 Date SASHA - 7 assessed: 06/03/24 Source: Developed by Drs. Nico Aly, Dea Siegel, Rome Garcia and colleagues, with an educational deandre from [employer]. Review of Systems Const All systems reviewed & are unremarkable except as noted in HPI and below Eyes Reports no additional complaints ENT Reports no additional complaints Card Reports no additional complaints Resp Reports no additional complaints GI Reports no additional complaints Reports no additional complaints Physical exam (Primary Care) Vital Signs: Last Vital Signs Temp 98.1 F 09/05/24 09:41 Pulse 85 09/05/24 09:41 Resp 16 09/05/24 09:41 BP 124/58 L 09/05/24 09:41 Pulse Ox 95 09/05/24 09:41 Oxygen Delivery Method Room Air 09/05/24 09:41 BMI result Body Mass Index 29.4 Tobacco/Smoking Status: Tobacco use Status Tobacco use date assessed 09/05/24 09/05/24 09:46 Patient Tobacco Use Status Never used Tobacco 09/05/24 09:39 e-Cigarette/Vaping Use Never Used 09/05/24 09:39 Thrive Assessment: Date of Thrive Assessment Date Thrive assessed 05/30/24 09/05/24 09:39 Currently or been in a relationship where the following occur: No concerns reported Const General: no acute distress HENMT Head: Yes normal to inspection Ears: TM's normal bilaterally Face and sinus: Yes normal facial exam Throat: Yes posterior oropharynx normal Eyes General: appearance normal, both eyes and all related structures Resp Effort & Inspection: normal respiratory effort Auscultation: clear to auscultation bilaterally Cardio Rhythm: regular rhythm Heart sounds: S1 normal heart sound present and S2 normal heart sound present GI Inspection: Yes normal to inspection Coding Level of Care Code Est Pt Level 4 (95939) Diagnoses COPD (chronic obstructive pulmonary disease) J44.9 HTN (hypertension) I10 URI (upper respiratory infection) J06.9 Assessment & Plan Assessment & Plan (1) COPD (chronic obstructive pulmonary disease): Comment: PFT 07/2024 mild to moderate COPD Code(s): J44.9 - Chronic obstructive pulmonary disease, unspecified Category: Medical Plan: Continue Breo (2) HTN (hypertension): Code(s): I10 - Essential (primary) hypertension Category: Medical Plan: Continue Current medications (3) URI (upper respiratory infection): Code(s): J06.9 - Acute upper respiratory infection, unspecified Category: Medical Plan: Supportive care discussed
[2024-09-05 09:41] VITALS: BP 124/58; PULSE 85; RESP 16; TEMP 36.7; O2SAT 95; BMI 29.4
== END 2024-09-05 11:25 | disposition home or self-care (01) ==
LOC: HO.HMCC 09:33
PROVIDERS: PCP Internal Medicine; Visit Provider Internal Medicine
DX: J44.9 Chronic obstructive pulmonary disease, unspecified (principal); I10 Essential (primary) hypertension; J06.9 Acute upper respiratory infection, unspecified

== ENCOUNTER → 2024-09-05 09:32 | Outpatient (BNVA) | payer MEDICARE, OTHER, SELFPAY | PROVIDERS: PCP Internal Medicine; Visit Provider Internal Medicine | DX: J44.9 Chronic obstructive pulmonary disease, unspecified (principal); J06.9 Acute upper respiratory infection, unspecified; I10 Essential (primary) hypertension | CPT/HCPCS: 99212 ==

== ENCOUNTER 2024-10-29 09:35 | Outpatient (REF) | payer MEDICARE, OTHER, SELFPAY ==
--- OUTSIDE RECORDS SUMMARY | 2024-10-29 10:06 | XMS_ITS | Data Portability ---
Author Organization [facility] Dhruv Bolton [facility], [facility] Address [address] [place] [address] Care Team Providers Care Doubler Operator Name Role Phone YANG GOMEZ Primary Care [...] Conservative treatment as clinically appropriate for the patient s current episode of care including, but [...] reviewed, updated, and is located in the patient s chart. PAST MEDICAL HISTORY: Past medical [...] and lucid. Normal insight, affect, and grooming. RIPSAWYER: Gross motor coordination is intact. No spasticity [...] X-rays ordered, obtained, and reviewed today on [facility] P[facility]: AP pelvis, Marking AP [...] to answer all of the patient's questions. [facility] speech recognition carbon sequestration plant operator software was used to create portions of this document. An attempt at proofreading has been made to minimize errors. Please call for corrections. [email or web address] Not available 04/24/2024 12:43:09 Plan of Treatment Reminders Order Date Submit Date Provider Last Modified By Organization Details Last Modified Time Details Appointments RECHECK 15 2024 03:30P Tawana Chan PA-C Not available Not available Not available Lab None recorded. Referral physical therapist referral - (THIS PRESCRIPT ION EXPIRES 30 DAYS FROM DATE LISTED) PHYSICAL THERAPY REFERRAL ICD-10: M70.61 (right), M70.62(Le ft), M70.60(Bi lateral) 1. Core stabiliza tion, hip abductor strengthe maddison with focus on eccentric strengthe maddison and balance training. 2. Soft tissue modalitie s including foam rollers as needed. 3. Home exercise and stretchin g program. Allow 2-3 visits a week for 6 weeks. Completed by: 2024 025 [email or web address] [facility] [place], [address] [place] [address], [place], [address], 08/11/2024 12:47:34 physical therapist referral - (THIS PRESCRIPT ION EXPIRES 30 DAYS FROM DATE LISTED) PHYSICAL THERAPY REFERRAL S/P SURGERY ICD-10: M70.61 (right), M70.62(Le ft), M70.60(Bi lateral) 1. Core stabiliza tion, hip abductor strengthe maddison with focus on eccentric strengthe maddison and balance training. 2. Soft tissue modalitie s including foam rollers as needed. 3. Home exercise and stretchin g program. Allow 2-3 visits a week for 6 weeks. Completed by: 2024 025 [email or web address] Not available 05/06/2024 14:36:37 Procedures None recorded. Surgeries None recorded. Imaging XR, lumbosacr al spine, 4 or more view - 326 lspine 4v 2024 025 [email or web address] 8 [facility], [address], [place], [address], 05/12/2024 10:42:47 XR, lumbar spine, 2 view - 303 L spine 2v 2024 025 [email or web address] [facility], [address], [address], [place], [address], 05/16/2024 09:34:47 XR, hip + pelvis, bilateral , 2 view - 206 2v rt 2024 025 [email or web address] [facility], [address], [address], [place], [address], 05/06/2024 14:36:37 Medication Orders None recorded. Patient [...] Abnormal Flag Note LastModifiedBy Organization Detail LastModifiedTime 04/24/1904/24/2024 XR, hip + pelvi s, bilat eral, 2 view [email or web address]:/ [email or web address] ?Encry pted=s hAaTro YD8dLq bEUv6g %2BXZw aYqtaq 0bqfl% 2Fg9IQ a4ajBk vP9nXo QUaueC m3YtLR FvZlgJ JJ8mAn HZtai3 1d4430 AC0Kqb 3yNWKa jKiQtr MwF INTERFACE [facility] [address], [place], [address], 04/24/2024 10:22:39 04/24/19 25 04/24/2024 XR, hip + pelvi s, bilat eral, 2 view [email or web address]:/ [email or web address] ?Encry pted=s hAaTro YD8dLq bEUv6g %2BXZw aYqtaq 0bqfl% 2Fg9IQ a4ajBk vP9nXo QUaueC m3YtLR FvZlgJ JJ8mAn HZtai3 8z8453 AC0Kqb 3yNWKa jKiQtr MwF INTERFACE [facility] [address], [place], [address], 04/24/2024 10:22:41 05/07/19 25 05/07/2024 XR, lumba r spine , 2 view [email or web address]:/ [email or web address] ?Encry pted=s hAaTro YD8dLq bEUv6g %2BXZw aYqtaq 0bqfl% 2Fg9IQ a4ajBk vP9nXo QUaueC m3YtLR FvZlgJ JJ8mAn HZtai3 3j8077 AC0Kqb 3WFU6O vKiQtr MwF INTERFACE [facility] [address], [place], [address], 05/07/2024 14:14:40 05/07/19 25 05/07/2024 XR, lumba r spine , 2 view [email or web address]:/ [email or web address] ?Encry pted=s hAaTro YD8dLq bEUv6g %2BXZw aYqtaq 0bqfl% 2Fg9IQ a4ajBk vP9nXo QUaueC m3YtLR FvZlgJ JJ8mAn HZtai3 7x0592 AC0Kqb 3WFU6O vKiQtr MwF INTERFACE [facility] [address], [place], [address], 05/07/2024 14:14:41 05/08/1901/25/2024 MRI, lumba r spine , w/o contr ast No observ ation record ed. [email or web address] Not Available 05/08 16:19:28 05/12/19 25 05/12/2024 XR, lumbo sacra l spine , 4 or more view http:/ [email or web address] ?Encry pted=s hAaTro YD8dLq bEUv6g %2BXZw aYqtaq 0bqfl% 2Fg9IQ a4ajBk vP9nXo QUaueC m3YtLR FvZlgJ [place] HZtai3 8c5865 AC0Kqb 3SNUaG nKiQtr MwF INTERFACE [facility] [address], [address], 05/12/2024 10:20:37 05/12/19 25 05/12/2024 XR, lumbo sacra l spine , 4 or more view http:/ [email or web address] ?Encry pted=s hAaTro YD8dLq bEUv6g %2BXZw aYqtaq 0bqfl% 2Fg9IQ a4ajBk vP9nXo QUaueC m3YtLR FvZlgJ JJ8mAn HZtai3 8r4630 AC0Kqb 3SNUaG nKiQtr MwF INTERFACE [facility] [address], [place], [address], 05/12/2024 10:20:39 Result Notes Documentation Provider Name and Address Organization Details Recorded Time Xr, Hip + Pelvis, Bilateral, 2 View : [email or web address] Encrypted=eqBpBqeBU6tQseY Uv6g%3VISgtQxxsx2llyp%2Fg 9ZAv3miGstP8bJsWWamsZq8Bk DCJnMdiVFW3pReXOiyx02w291 2DJ1Ghm4qWRQmgEsWdkVgT Not Available [facility] 04/24/2024 10:22: 40 Xr, Hip + Pelvis, Bilateral, 2 View : [email or web address] Encrypted=oqLgGnfKJ6uPghX Uv6g%8MKZyqVuxnj7lbif%2Fg 4OAb4kaWbsY7aGoJFebgYf5Gq LNZkIbgLLW6cEwYSjcm27z295 3KN2Mlg8iTBWtyFtHzuJoV Not Available [facility] 04/24/2024 10:22: 42 Xr, Lumbar Spine, 2 View : [email or web address]? Encrypted=ulTrObyGB7rWvtQ Uv6g%0QSKcyRsgcp2fczn%2Fg 0UYv0qdFlpJ4uCrHOdgzGm9Kt UGYaComRTP5iPhDHdve19a159 3NC1Jlh8KDJ1ZxAdBgmGsC Not Available [facility] 05/07/2024 14:14: 40 Xr, Lumbar Spine, 2 View : [email or web address]? Encrypted=mcVmTqcLW8pDmrP Uv6g%3LSExwPbvje5yrae%2Fg 8FEm3yfMohH5zJeIIpjxBu6Fv KMVcKmnFMT7uGnZQuiv78i040 0TT4Gvx6PDH9MoQaUvsWvD Not Available [facility] 05/07/2024 14:14: 42 Xr, Lumbosacral Spine, 4 Or More View : [email or web address]? Encrypted=xhOpXgwAR7mQkzO Uv6g%0XCLwuTlizx0qzjg%2Fg 0IXf4qnNmvA9wSiTEebcYn0Rg NQTsVkqBPI1fJpXQuyo82t110 9JK8Qfb3DZWhQkDlLzlZyG Not Available [facility] 05/12/2024 10:20: 38 Xr, Lumbosacral Spine, 4 Or More View : [email or web address]? Encrypted=rqUnWveKW5cFzyF Uv6g%4GDAkyJxzkg1lfub%2Fg 0XFm4bsAshM1iDxCJzirWy1Tu BWGzQblYBF7gToASbmh78h341 6XT5Xue7QDAbEzIfYesFwY Not Available [facility] 05/12/2024 10:20: 40 Problems Name Problem SNOMED Code Status Onset Date Resolution Date Notes Provider Name and Address Organization Details Recorded Time No complaints 784938616 Active Status : 'I'; Not Available [facility] 4 09:16:35 Spinal stenosis of lumbar region 17916556 Active 2024 Emery Del Rosario MD [address], [place], [address] , [facility] 5 12:17:06 Lumbar spondyloli sthesis 0324552515299 02 Active 2024 Emery Del Rosario MD [address], [place], [address] , [facility] 5 12:17:09 History of major orthopedic surgery 703315652 Active 2021 Status : 'A'; Not Available [facility] 4 11:43:56 Problem Notes None recorded. Procedures Surgical History Date Name Laterality Status Provider Name and Address Organization Details Recorded Time 5 Hip Kenalog 1cc Injection, L/R completed Mendoza Chan PA-C [address], [place], [address], [facility] 07/30/2024 16:31:17 5 Knee Kenalog 1cc L/R completed Mendoza Chan PA-C [address], [place], [address], [facility] 07/30/2024 16:31:30 5 Hip Kenalog 1cc Injection, L/R completed Abel Del Cid MD [address], [place], [address], [facility] 04/24/2024 10:56:41 4 Sports Knee 4&1 completed Marilyn Bridges PA-C [address], [place], [address], [facility] 03/11/2024 09:17:07 4 Sports Knee 4&1 completed Marilyn Bridges PA-C [address], [place], [address], [facility] 12/13/2023 13:05:53 2 Knee Surgery completed ANSON ADKINS [facility] 07/30/2024 15:35:41 1 Orthopedic Surgery completed Marlena leigh [facility] 05/12/2024 09:53:07 Other completed ANSON ADKINS [facility] 07/30/2024 15:35:41 Imaging Results None recorded. Procedure Notes None recorded. Medical Equipment None [...] Not Available Not Available No t Available [place] Thyroid 90 mg tablet TAKE 1 TABLET [...] Available Not Available Not Available [facility] spacer USE DIRECTED WITH INHALER 05/07 completed Not Available Not Available Not Available Xiidra 5 % eye drops in a dropperette INSTILL 1 DROP INTO BOTH EYES TWICE A DAY 05/12 completed Not Available Not Available Not Available Trelegy Ellipta 100 mcg-62.5 mcg-25 mcg powder for inhalation INHALE 1 PUFF DAILY 05/07 completed Not Available Not Available Not Available Arti Molinaub 250 mcg-50 mcg/dose powder for inhalation INHALE 1 DOSE BY MOUTH TWICE DAILY. RINSE MOUTH AFTER USE 05/12 completed Not Available Not Available Not Available Miebo (PF) 100 % eye drops active Not Available Not Available Not Available Vitals Date Recorded Body height Body mass index (BMI) Body weight Provider Name and Address Organization Details Last Updated DateTime 04/24/2024 157.48 cm 31.1 kg/m2 08364.7 g LUIS LIRADyllan [facility] 04/24/2024 10:04:32 Date Recorded Body height Body mass index (BMI) Body weight Provider Name and Address Organization Details Last Updated DateTime 05/07/2024 157.48 cm 31.1 kg/m2 48611.7 g Abby bonilla [facility] 05/07/2024 14:07:43 Date Recorded Body height Body mass index (BMI) Body weight Provider Name and Address Organization Details Last Updated DateTime 05/12/2024 157.48 cm 31.1 kg/m2 11896.7 g Marlena leigh [facility] 05/12/2024 09:53:14 Date Recorded Body height Provider Name an d Address Organization Details Last Updated DateTime 07/30/2024 157.48 cm ANSON JED [facility] 07/30/2024 15:35:44 Date Recorded Body height Body mass index (BMI) Body weight Provider Name and Address Organization Details Last Updated DateTime 03/11/2024 157.48 cm 31.1 kg/m2 49456.7 g tami enriquezbar [facility] 03/11/2024 08:45:41 Social History None recorded. Functional Status None [...] SNOMED-CT Code Diagnosis ICD10 Code Diagnosis Note [id number] ALVARO [facility] [address] [place] [address] 12/13/2023 10:39:22 01/07/2024 09:52:07 Osteoarthritis of left knee joint 7012477389 09999 M17.12 [id number] ALVARO [facility] [address] [place] [address] 03/11/2024 08:39:29 04/03/2024 09:13:48 Osteoarthritis of left knee joint 4034590158 38232 M17.12 [id number] Abel Del Cid MD [facility] [address] [place] [address] 04/24/2024 09:55:28 05/06/2024 14:36:37 Pain of hip region 80987287 M25.551 Trochanter ic bursitis of right hip 4293113463 67321 M70.61 [id number] Linda Hickman, [facility] [address] [place] [address] 05/07/2024 13:59:59 05/16/2024 09:34:47 Low back pain 113977162 M54.59 Degenerati on of lumbar intervertebral disc 80146897 M51.360 Lumbar spondylolisthesis 6892959391 37045 M43.16 [id number] Emery Del Rosario MD [facility] [address] [place] [address] 05/12/2024 09:31:59 05/28/2024 08:46:05 Lumbar spondylosis 400698852 M47.816 Lumbar spondylolisthesis 0416654674 12678 M43.16 Lumbar radiculopathy 128 847181 M54.16 Spinal mikey nosis of lumbar region 49557102 M48.312 [id number] Mendoza Chan PA-C [facility] [address] [place] [address] 07/30/2024 15:28:54 08/11/2024 12:47:34 Trochanteric bursitis of right hip 6453032792 50505 M70.61 Osteoarthr itis of left knee joint 8244799422 50428 M17.12 Health Concerns Section Related Observation LastModified by Organization Detai ls LastModified Time None Recorded Concern Status LastModified by Organization Details LastModified Time None Recorded Advance Directives Directive None Recorded Payers Insurance Date Sequence Insurance Name Policy Number Policy Sandoval Covered Member ID Sandoval Member ID Guarantor Name 07/30/2024 1 [place]ICARE [place]: [employer] Rosalba Pastrana [id number] Rosalba Pastrana 08/11/2024 2 [facility] [id number] Rosalba C Victoriano [id number] Rosalba [place] Notes Date Note Type Note Provider Name and Address Organization Details Recorded Time 4 text/html I am seeing the patient today under the supervision of Dr. Deluca who was available but who did not see the patient. HPI: Patient presenting today with known osteoarthritis of the left knee. Has been responding favorably to conservative treatment. Here today for a cortisone injection. Denies recent injury. No new systemic complaints. Last injection was in November. Past family, medical, social history and review of systems has been reviewed, updated, and is located in the patient s chart. Examination: Examination of the left knee reveals no effusion, erythema, or warmth. Injection site benign. Decreased range of motion. Point tender medial joint line. Calf is soft and nontender. 5/5 strength knee flexion and extension. Impression: Left knee osteoarthritis Plan: The patient was thoroughly counseled today regarding their knee condition, its natural history, and conservative versus surgical treatment options. The patient is interested in receiving an injection with corticosteroid. The left knee was prepped sterilely and an injection was administered [...] every 3 months. Marilyn Bridges PA-C [address], [place], [address], [facility] 03/11/2024 09:17:39 5 text/html I am seeing [...] gone back. Back injections years ago at [facility] were helpful at first but stopped helping, so she came here. She had a lumbar spine MRI at [place] 01/25/2024.Baseline urinary stress incontinence, no bowel incontinence, no saddle anesthesia.Right hip trochanteric bursitis s/p injection 04/24/[address] Del Cid which only helped a little bit. RADICULITIS: none PFMSH and ROS have been reviewed, updated, and it is located in the patient's chart. PRIOR TREATMENTS/MEDICATIONS: tylenol (no help) WORK STATUS: retired [employer] EXAM: examination of the lumbar spineTransitions: Patient [...] rays ordered, obtained, and independently reviewed at [facility] today. 2 views lumbar spine reveals [...] today FOLLOW UP: with surgeon Speech recognition carbon sequestration plant operator software was used to create portions of this document. An attempt at proofreading has been made to minimize errors. Please call for corrections. Linda Hickman, FISH TENDER [address], [place], [address], [place] [facility] 05/07/2024 17:17:20 5 text/html [...] decision. Conservative management options have been exhausted. Emery Del Rosario MD [address] [place] [address] [address], [place], [address], [facility] 05/12/2024 12:17:29 5 text/html I am seeing the patient today under the supervision of Dr. Deluca who was available but who did not see the patient. HPI: Patient presenting today with known osteoarthritis of the left knee. Has been responding favorably to conservative treatment. Here today for a cortisone injection. Denies recent injury. No new systemic complaints. Last injection was in November. Past family, medical, social history and review of systems has been reviewed, updated, and is located in the patient s chart. Examination: Examination of the left knee reveals no effusion, erythema, or warmth. Injection site benign. Decreased range of motion. Point tender medial joint line. Calf is soft and nontender. 5/5 strength knee flexion and extension. Impression: Left knee osteoarthritis Plan: The patient was thoroughly counseled today regarding their knee condition, its natural history, and conservative versus surgical treatment options. The patient is interested in receiving an injection with corticosteroid. The left knee was prepped sterilely and an injection was administered [...] follow-up as needed. Mendoza Chan PA-C [address], [place], [address], [facility] 07/30/2024 16:32:14 OBGyn Episode No OBEpisode recorded.
[2024-10-29 13:43] LABS: MANUAL DIFF FLAG NO
[2024-10-29 13:55] LABS: Hematocrit 39.2 % (37.0-47.0); Hemoglobin 13.1 g/dl (12.0-16.0); Imm Gran Abs Auto 0.01 X10*3/uL (0.00-0.03); Imm Gran Pct Auto 0.2 % (0.0-0.4); Lymphocytes Absolute Auto 1.1 X10*3/uL (1.2-4.9); Mean Corpuscular HGB Conc 33.4 g/dl (31.0-35.0); Mean Corpuscular Hemoglobin 32.0 pg (27.0-33.0); Mean Corpuscular Volume 95.6 fL (80.0-98.0); NRBC Abs Auto 0.000 X10*3/uL (0.0-0.012); NRBC Pct Auto 0.0 /100WBC (0.0-0.2); Platelet Count 189 X10*3/uL (160-400); Red Blood Count 4.10 X10*6/uL (4.20-5.50); White Blood Count 4.4 X10*3/uL (4.8-10.8)
[2024-10-29 14:45] LABS: Alanine Aminotransferase 14 U/L (0-31); Albumin Level 4.3 g/dL (3.5-5.0); Alkaline Phosphatase 46 U/L (39-117); Anion Gap 11 (12-20); Aspartate Amino Transferase 32 U/L (5-31); Blood Urea Nitrogen 21 mg/dL (9-16); Calcium 9.6 mg/dL (8.4-10.2); Carbon Dioxide 30 mmol/L (22-29); Chloride 104 mmol/L (96-108); Cholesterol 144 mg/dL (<200); Estimated Glomerular Filt Rate 40; HDL Cholesterol 59 mg/dL (>40); Potassium 4.2 mmol/L (3.3-5.1); Sodium 141 mmol/L (135-145); Total Protein 6.6 g/dL (6.5-8.0); Triglycerides 112 mg/dL (<150)
[2024-10-29 15:17] LABS: Free T4 (Free Thyroxine) 0.86 ng/dL (0.71-1.85)
== END 2024-10-29 09:36 | disposition home or self-care (01) ==
LOC: HO.HMGCLDS 09:35
PROVIDERS: PCP Internal Medicine; Visit Provider Internal Medicine
DX: E03.9 Hypothyroidism, unspecified (principal); E78.5 Hyperlipidemia, unspecified; I10 Essential (primary) hypertension; J44.9 Chronic obstructive pulmonary disease, unspecified
CPT/HCPCS: 36415; 80053; 80061; 84439; 84443; 85025

== ENCOUNTER 2024-11-04 12:52 | Outpatient (AMB) | payer MEDICARE, OTHER, SELFPAY ==
[2024-11-04 13:04] VITALS: BP 120/70; PULSE 78; RESP 18; TEMP 36.6; O2SAT 98; BMI 29.3
--- NOTE | 2024-11-04 13:04 | A.OFFPC_ITS ---
Vital Signs 11/04/24 13:04 Height 5 ft 2 in Weight 160 lb BMI 29.3 BP 120/70 Blood Pressure Location Rt brachial Position Sitting Respiration 18 Pulse 78 Pulse Source Pulse Oximeter Temp 97.9 F Temp Source Oral Pulse Oximetry (%) 98 Oxygen Delivery Method Room Air Intake Visit Reasons: 3 month follow up Intake Note: Pt is here today for 3 months follow up visit on labs. Allergies gabapentin Allergy (Verified 11/04/24 13:10) feeling very tired dizzy budesonide (From Symbicort) Adverse Reaction (Intermediate, Verified 11/04/24 13:10) Cough denosumab (From Prolia) Adverse Reaction (Intermediate, Verified 11/04/24 13:10) jaw necrosis formoterol (From Symbicort) Adverse Reaction (Intermediate, Verified 11/04/24 13:10) Cough lisinopril Adverse Reaction (Intermediate, Verified 11/04/24 13:10) Cough alendronate sodium Adverse Reaction (Verified 11/04/24 13:10) jaw necrosis fluticasone furoate (From Trelegy Ellipta) Adverse Reaction (Verified 11/04/24 13:10) hoarseness umeclidinium (From Trelegy Ellipta) Adverse Reaction (Verified 11/04/24 13:10) hoarseness vilanterol (From Trelegy Ellipta) Adverse Reaction (Verified 11/04/24 13:10) hoarseness Medication List - Last Reconciled 11/04/24 by Gregoria Mccloud MD diclofenac epolamine 1.3% 1 patch topical BID famotidine (Pepcid) 40 mg PO DAILY fluticasone propion-salmeterol 250-50 mcg/dose (Advair Diskus) 1 inh inhalation BID inhalational spacing device As directed with inhaler paroxetine HCl 20 mg PO DAILY rosuvastatin 20 mg PO DAILY thyroid (pork) ([place] Thyroid) 90 mg PO DAILY valsartan-hydrochlorothiazide 80-12.5 mg 1 tab PO DAILY Tobacco use date assessed: 11/04/24 Fall risk assessment: No Falls in past year Last assessed Fall Risk: 11/04/24 Dental Screening Dental Screen Date: 11/04/24 Did you have a dental visit in the last 12 months?: Yes Did you have a dental problem in the last 6 months where you did not have access to dental care?: No Was dental information given to patient?: Patient has dentist HPI 3 month follow up HPI Details Pt presents for f/u HTN, hypothyroid, hyperlipid, stable on meds. Pt had 3 episodes of epigastric abd pain after eating spicy foods lasted a few minutes relieved with Tums. Patient denies nausea vomiting hematochezia melena chest pain palpitations shortness or breath. COPD is stable on Advair once a day. Patient reports increasing anxiety concern about politics. She will start taking paroxetine 20 mg this week. [facility] Medical History Anxiety and depression Vitamin D deficiency Vitamin D deficiency disease Carotid artery bruit Osteopenia Annual physical exam Knee pain, left Sciatica Hypothyroidism Overweight Hyperlipidemia HTN (hypertension) Surgical History Hx of total knee replacement Family History Father Heart attack Mother No problems noted. Social History Housing: House Patient Tobacco Use Status: Never used Tobacco e-Cigarette/Vaping Use: Never Used service: No Current occupational status: retired Cognitive needs: No Hearing needs: No Vision needs: Yes Questionnaire Thrive Questionnaire Date Thrive assessed: 05/30/24 I am a: Patient What is your living situation today?: I have a steady place to live Within the past 12 months, did the food you bought not last and you didn't have the money to get more?: Never true Within the past 12 months, did you worry whether your food would run out before you got money to buy more?: Never true Do you have trouble paying for medicines?: No Do you have trouble getting transportation to medical appointments?: No Do you have trouble paying your heating and electricity bill?: I choose not to answer this question Do you have trouble taking care of your child, family member or friend?: No Do you have trouble with day-to-day activities such as bathing, preparing meals, shopping, managing finances, etc.?: I choose not to answer this question Are you currently unemployed and looking for a job?: No Are you interested in more education?: No Please select the resources that you would like help with: None Currently or been in a relationship where the following occur: No concerns reported THRIVE Score: 0 SASHA-7 AMB Questionnaire SASHA-7 Date SASHA - 7 assessed: 06/03/24 Source: Developed by Drs. Nico Aly, Dea Siegel, Rome Garcia and colleagues, with an educational deandre from [employer]. Review of Systems Const All systems reviewed & are unremarkable except as noted in HPI and below Eyes Reports no additional complaints ENT Reports no additional complaints Card Reports no additional complaints Resp Reports no additional complaints GI Reports no additional complaints Reports no additional complaints Physical exam (Primary Care) Vital Signs: Last Vital Signs Temp 97.9 F 11/04/24 13:04 Pulse 78 11/04/24 13:04 Resp 18 11/04/24 13:04 BP 120/70 11/04/24 13:04 Pulse Ox 98 11/04/24 13:04 Oxygen Delivery Method Room Air 11/04/24 13:04 BMI result Body Mass Index 29.3 Tobacco/Smoking Status: Tobacco use Status Tobacco use date assessed 11/04/24 11/04/24 13:10 Patient Tobacco Use Status Never used Tobacco 11/04/24 13:10 e-Cigarette/Vaping Use Never Used 11/04/24 13:10 Thrive Assessment: Date of Thrive Assessment Date Thrive assessed 05/30/24 11/04/24 13:10 Currently or been in a relationship where the following occur: No concerns reported Const General: no acute distress HENMT Head: Yes normal to inspection Eyes General: appearance normal, both eyes and all related structures Resp Effort & Inspection: normal respiratory effort Auscultation: clear to auscultation bilaterally Cardio Rhythm: regular rhythm Heart sounds: S1 normal heart sound present and S2 normal heart sound present GI Inspection: Yes normal to inspection Palpation (GI): Soft to palpation Percussion: Yes normal to percussion Auscultation: normal bowel sounds Coding Level of Care Code Est Pt Level 4 (79719) Complex EM visit Add On G2211 Diagnoses GERD (gastroesophageal reflux disease) K21.9 Anxiety and depression F41.9; F32.9 HTN (hypertension) I10 COPD (chronic obstructive pulmonary disease) J44.9 Assessment & Plan Assessment & Plan (1) GERD (gastroesophageal reflux disease): Code(s): K21.9 - Gastro-esophageal reflux disease without esophagitis Category: Medical Plan: Anti GERD diet discussed with the patient. Pepcid 40 mg daily for 2 months as prescribed if the symptoms persist patient will be referred to GI (2) Anxiety and depression: Comment: ON PAROXETINE Code(s): F41.9 - Anxiety disorder, unspecified; F32.9 - Major depressive disorder, single episode, unspecified Category: Medical Plan: Patient will increase paroxetine. Counseling was recommended but patient declined (3) HTN (hypertension): Code(s): I10 - Essential (primary) hypertension Category: Medical Plan: Blood pressure is low valsartan with hydrochlorothiazide will be changed to valsartan 80 mg a day. Patient was advised to increase fluid intake (4) COPD (chronic obstructive pulmonary disease): Comment: PFT 07/2024 mild to moderate COPD Code(s): J44.9 - Chronic obstructive pulmonary disease, unspecified Category: Medical Plan: Continue Advair 250 once a day Orders: Orders Comprehensive [place]. Panel Fast 2 Months K21.9 - Gastro-esophageal reflux disease without esophagitis Medications: New valsartan 80 mg PO DAILY 90 tabs 0RF famotidine (Pepcid) 40 mg PO DAILY 90 tabs 0RF Refilled paroxetine HCl 20 mg PO DAILY 90 tabs 3RF rosuvastatin 20 mg PO DAILY 90 tabs 3RF thyroid (pork) ([place] Thyroid) 90 mg PO DAILY 90 tabs 3RF Discontinued fluticasone furoate-vilanterol 100-25 mcg/dose (Breo Ellipta) Discontinued Reason: Doctor's Order 1 inh inhalation DAILY 60 ea 1RF
--- OUTSIDE RECORDS SUMMARY | 2024-11-04 13:56 | XMS_ITS | Data Portability ---
Author Organization [facility] Dhruv Bolton [facility], [facility] Address [address] [place] [address] Care Team Providers Care Early Childhood Teacher Name Role Phone YANG GOMEZ Primary Care [...] and lucid. Normal insight, affect, and grooming. MUSIC SPECIALIST: Gross motor coordination is intact. No spasticity [...] X-rays ordered, obtained, and reviewed today on [facility] PACS: AP pelvis, Marking AP of the [...] to answer all of the patient's questions. [facility] speech recognition registered nurse step down software was used to create portions of this document. An attempt at proofreading has been made to minimize errors. Please call for corrections. Not available 04/24/2024 12:43:09 Plan of Treatment [...] for 6 weeks. Completed by: 2024 025 [email or web address] [facility], [address] [place] [address], [place], [address], 08/11/2024 12:47:34 physical therapist referral - (THIS [...] for 6 weeks. Completed by: 2024 025 Not available 05/06/2024 14:36:37 Procedures None recorded. Surgeries None recorded. Imaging XR, lumbosacr al spine, 4 or more view - 326 lspine 4v 2024 025 [email or web address] [address] [facility], [address], [place], [address], 05/12/2024 10:42:47 XR, lumbar spine, 2 view - 303 L spine 2v 2024 025 [email or web address] [facility], [address], [address], [place], [address], 05/16/2024 09:34:47 XR, hip + pelvis, bilateral , 2 view - 206 2v rt 2024 025 [facility], [address], [address], [place], [address], 05/06/2024 14:36:37 Medication Orders None recorded. Patient [...] a4ajBk vP9nXo QUaueC m3YtLR FvZlgJ JJ8mAn HZtai3 3d5400 AC0Kqb 3yNWKa jKiQtr MwF INTERFACE [facility] [address], [place], [address], 04/24/2024 10:22:39 04/24/19 25 04/24/2024 XR, hip + pelvi s, bilat eral, 2 view [email or web address] ?Encry pted=s hAaTro YD8dLq bEUv6g %2BXZw aYqtaq 0bqfl% 2Fg9IQ a4ajBk vP9nXo QUaueC m3YtLR FvZlgJ JJ8mAn HZtai3 5j0125 AC0Kqb 3yNWKa jKiQtr MwF INTERFACE [facility] [address], [place], [address], 04/24/2024 10:22:41 05/07/19 25 05/07/2024 XR, lumba r spine , 2 view [email or web address] ?Encry pted=s hAaTro YD8dLq bEUv6g %2BXZw aYqtaq 0bqfl% 2Fg9IQ a4ajBk vP9nXo QUaueC m3YtLR FvZlgJ JJ8mAn HZtai3 0p8225 AC0Kqb 3WFU6O vKiQtr MwF INTERFACE [facility] [address], [place], [address], 05/07/2024 14:14:40 05/07/19 25 05/07/2024 XR, lumba r spine , 2 view [email or web address] ?Encry pted=s hAaTro YD8dLq bEUv6g %2BXZw aYqtaq 0bqfl% 2Fg9IQ a4ajBk vP9nXo QUaueC m3YtLR FvZlgJ JJ8mAn HZtai3 6q3621 AC0Kqb 3WFU6O vKiQtr MwF INTERFACE [facility] [address], [place], [address], 05/07/2024 14:14:41 05/08/1901/25/2024 MRI, lumba r spine , w/o contr ast No observ ation record ed. Not Available 05/08 16:19:28 05/12/19 25 05/12/2024 XR, lumbo sacra l spine , 4 or more view [email or web address] ?Encry pted=s hAaTro YD8dLq bEUv6g %2BXZw aYqtaq 0bqfl% 2Fg9IQ a4ajBk vP9nXo QUaueC m3YtLR FvZlgJ JJ8Bokoshe HZtai3 0m6222 AC0Kqb 3SNUaG nKiQtr MwF INTERFACE [facility] [address], [address], 05/12/2024 10:20:37 05/12/19 25 05/12/2024 XR, lumbo sacra l spine , 4 or more view [email or web address] ?Encry pted=s hAaTro YD8dLq bEUv6g %2BXZw aYqtaq 0bqfl% 2Fg9IQ a4ajBk vP9nXo QUaueC m3YtLR FvZlgJ JJ8mAn HZtai3 4c4468 AC0Kqb 3SNUaG nKiQtr MwF INTERFACE [facility] [address], [place], [address], 05/12/2024 10:20:39 Result Notes Documentation Provider Name and Address Organization Details Recorded Time Xr, Hip + Pelvis, Bilateral, 2 View : [email or web address] Encrypted=tpIlZaaWA6cRryO Uv6g%4EFGotSvxyh7zrhi%2Fg 5IJq2xzCfdH1cQeREtocNy5Jf ILLhQgyPYM0pRmMRrnw16c179 2BB9Qgp9nDNIsqIxWneIoK Not Available [facility] 04/24/2024 10:22: 40 Xr, Hip + Pelvis, Bilateral, 2 View : [email or web address] Encrypted=jzNuMsqBC7tKbvF Uv6g%2UDUgsSrdth7kknd%2Fg 7JXb6waTbkC6iWxEBpeiOn7Ix TGOuAnuDZN1xVlSCzhx69g432 7CH8Hxy0yDTGqjMsYvyBqH Not Available [facility] 04/24/2024 10:22: 42 Xr, Lumbar Spine, 2 View : [email or web address] Encrypted=rtTqDhaTM2rHcbD Uv6g%9TSLqxFezsh1rpnw%2Fg 2DWj2vlPeiL7dTjWEmotYt5Yu UZTsZwwXHV8iAmZWblf62p895 0GY2Mew9LVR0WyApEptPzQ Not Available [facility] 05/07/2024 14:14: 40 Xr, Lumbar Spine, 2 View : [email or web address] Encrypted=pkUnPxlQF4hXjgL Uv6g%5YHCoeOkppf4vecr%2Fg 4HTk8lpMkiV7fUqYHijaOn2Nr QSSdQilCED4uHxXJrgh46b553 9RL7Oiq8HZT2DcLjYvrUxS Not Available [facility] 05/07/2024 14:14: 42 Xr, Lumbosacral Spine, 4 Or More View : [email or web address] Encrypted=tdNtDalDW0eHcsW Uv6g%6UDLlnZfrko3obyo%2Fg 3JUo9dzLttE5rBmJXdduLp8Nx IRLqTwuWAM9rOeOEewu63l032 6OA2Ges3XKAhUvVlSalLhL Not Available [facility] 05/12/2024 10:20: 38 Xr, Lumbosacral Spine, 4 Or More View : [email or web address] Encrypted=rmYaRinIS6dObsL Uv6g%3NIInrIxrrm2hitu%2Fg 5JVa9pxFsiE4jYnSTtqfKu4Ud EIRfDtfNPC3eLdMIqbo79j630 2EL3Tcw5LIVbRsLpSarAbV Not Available [facility] 05/12/2024 10:20: 40 Problems Name Problem SNOMED Code Status Onset Date Resolution Date Notes Provider Name and Address Organization Details Recorded Time No complaints 047178147 Active Status : 'I'; Not Available [facility] 4 09:16:35 History of major orthopedic surgery 679890731 Active 2021 Status : 'A'; Not Available [facility] 4 11:43:56 Spinal stenosis of lumbar region 45740013 Active 2024 Emery Del Rosario MD [address], [place], [address] , [facility] 5 12:17:06 Lumbar spondyloli sthesis 5753599628922 02 Active 2024 MD Sukh [address], [place], [address] , [facility] 5 12:17:09 Problem Notes None recorded. Procedures Surgical History Date Name Laterality Status Provider Name and Address Organization Details Recorded Time 5 Hip Kenalog 1cc Injection, L/R completed Mendoza Chan PA-C [address], [place], [address], [facility] 07/30/2024 16:31:17 5 Knee Kenalog 1cc L/R completed Mendoza Chan PA-C [address], [place], [address], [facility] 07/30/2024 16:31:30 5 Hip Kenalog 1cc Injection, L/R completed Abel Del Cid MD [address], [place], [address], [facility] 04/24/2024 10:56:41 4 Sports Knee 4&1 completed Marilyn Bridges PA-C [address], [place], [address], [facility] 03/11/2024 09:17:07 4 Sports Knee 4&1 completed Marilyn Bridges PA-C [address], [place], [address], [facility] 12/13/2023 13:05:53 2 Knee Surgery completed ANSON ADKINS [facility] 07/30/2024 15:35:41 1 Orthopedic Surgery completed Marlena leigh [facility] 05/12/2024 09:53:07 Other completed ANSON ADKINS [facility] 07/30/2024 15:35:41 Imaging Results None recorded. Procedure [...] Not Available Not Available No t Available [place] Thyroid 90 mg tablet TAKE 1 TABLET [...] Available Not Available Not Available [employer] [facility] spacer USE DIRECTED WITH INHALER 05/07 [...] Updated DateTime 04/24/2024 157.48 cm 31.1 kg/m2 68706.7 g LUIS LIRADyllan [facility] 04/24/2024 10:04:32 Date Recorded Body height Body mass index (BMI) Body weight Provider Name and Address Organization Details Last Updated DateTime 05/07/2024 157.48 cm 31.1 kg/m2 26396.7 g Abby bonilla [facility] 05/07/2024 14:07:43 Date Recorded Body height Body mass index (BMI) Body weight Provider Name and Address Organization Details Last Updated DateTime 05/12/2024 157.48 cm 31.1 kg/m2 60099.7 g Marlena leigh [facility] 05/12/2024 09:53:14 Date Recorded Body height Provider Name an d Address Organization Details Last Updated DateTime 07/30/2024 157.48 cm ANSON JED [facility] 07/30/2024 15:35:44 Date Recorded Body height Body mass index (BMI) Body weight Provider Name and Address Organization Details Last Updated DateTime 03/11/2024 157.48 cm 31.1 kg/m2 50338.7 g tami enriquezbar [facility] 03/11/2024 08:45:41 Social History None recorded. Functional [...] SNOMED-CT Code Diagnosis ICD10 Code Diagnosis Note [id number] ALVARO [facility] [address] [place] [address] 12/13/2023 10:39:22 01/07/2024 09:52:07 Osteoarthritis of left knee joint 3338642630 15706 M17.12 [id number] ALVARO [facility] [address] [place] [address] 03/11/2024 08:39:29 04/03/2024 09:13:48 Osteoarthritis of left knee joint 2075689908 56333 M17.12 [id number] Abel Del Cid MD [facility] [address] [place] [address] 04/24/2024 09:55:28 05/06/2024 14:36:37 Pain of hip region 17038222 M25.551 Trochanter ic bursitis of right hip 7491176833 50613 M70.61 [id number] Linda Hickman, [facility] [address] [place] [address] 05/07/2024 13:59:59 05/16/2024 09:34:47 Low back pain 973988551 M54.59 Degenerati on of lumbar intervertebral disc 45722500 M51.360 Lumbar spondylolisthesis 9733154855 80897 M43.16 [id number] Emery Del Rosario MD [facility] [address] [place] [address] 05/12/2024 09:31:59 05/28/2024 08:46:05 Lumbar spondylosis 279138443 M47.816 Lumbar spondylolisthesis 1739058545 03908 M43.16 Lumbar radiculopathy 128 532521 M54.16 Spinal mikey nosis of lumbar region 69380703 M48.830 [id number] Mendoza Chan PA-C [facility] [address] [place] [address] 07/30/2024 15:28:54 08/11/2024 12:47:34 Trochanteric bursitis of right hip 3180223362 40305 M70.61 Osteoarthr itis of left knee joint 7349882804 09262 M17.12 Health Concerns Section Related Observation LastModified by Organization Detai ls LastModified Time None Recorded Concern Status LastModified by Organization Details LastModified Time None Recorded Advance Directives Directive None Recorded Payers Insurance Date Sequence Insurance Name Policy Number Policy Sandoval Covered Member ID Sandoval Member ID Guarantor Name 07/30/2024 1 [place]ARE [place]: [employer] Rosalba Pastrana [id number] Rosalba Pastrana 08/11/2024 2 [facility] [id number] Rosalba C Victoriano [id number] Rosalba [place] Notes Date Note Type Note Provider Name [...] every 3 months. Marilyn Bridges PA-C [address] [facility] [address], [place], [address], [facility] 03/11/2024 [...] gone back. Back injections years ago at [facility] were helpful at first but stopped helping, so she came here. She had a lumbar spine MRI at [facility] 01/25/2024.Baseline urinary stress incontinence, no bowel incontinence, no saddle anesthesia.Right hip trochanteric bursitis s/p injection 04/24/[address] Del Cid which only helped a little bit. RADICULITIS: none PFMSH and ROS have been reviewed, updated, and it is located in the patient's chart. PRIOR TREATMENTS/MEDICATIONS: tylenol (no help) WORK STATUS: retired [employer] EXAM: examination of the lumbar spineTransitions: Patient [...] rays ordered, obtained, and independently reviewed at [facility] today. 2 views lumbar spine reveals normal [...] today FOLLOW UP: with surgeon Speech recognition registered nurse step down software was used to create portions of this document. An attempt at proofreading has been made to minimize errors. Please call for corrections. Linda Hickman, GENERAL ENGINEERING TEACHER [address], [place], [address], [place] [facility] 05/07/2024 17:17:20 5 text/html [...] have been exhausted. Emery Del Rosario MD [address] [place] [address] [address], [place], [address], [facility] 05/12/2024 12:17:29 5 text/html [...] Chan PA-C [address], [place], [address], [facility] 07/30/2024 16:32:14 OBGyn Episode No OBEpisode recorded.
== END 2024-11-04 15:11 | disposition home or self-care (01) ==
LOC: HO.HMCC 12:53
PROVIDERS: PCP Internal Medicine; Visit Provider Internal Medicine
DX: K21.9 Gastro-esophageal reflux disease without esophagitis (principal); F41.9 Anxiety disorder, unspecified; J44.9 Chronic obstructive pulmonary disease, unspecified; F32.9 Major depressive disorder, single episode, unspecified; I10 Essential (primary) hypertension

== ENCOUNTER → 2024-11-04 12:52 | Outpatient (BNVA) | payer MEDICARE, OTHER, SELFPAY | PROVIDERS: PCP Internal Medicine; Visit Provider Internal Medicine | DX: K21.9 Gastro-esophageal reflux disease without esophagitis (principal); F41.9 Anxiety disorder, unspecified; F32.9 Major depressive disorder, single episode, unspecified; I10 Essential (primary) hypertension; J44.9 Chronic obstructive pulmonary disease, unspecified | CPT/HCPCS: 99212 ==

== ENCOUNTER 2025-03-10 15:41 | Outpatient (AMB) | payer MEDICARE, OTHER, SELFPAY ==
[2025-03-10 15:45] VITALS: BP 138/60; PULSE 60; TEMP 36.6; O2SAT 97; BMI 29.3
--- NOTE | 2025-03-10 15:45 | AM.OFFWIN_ITS ---
Intake Vital Signs 03/10/25 15:45 Height 5 ft 2 in Weight 160 lb BMI 29.3 BP 138/60 Blood Pressure Location Lt brachial Position Sitting Pulse 60 Pulse Source Pulse Oximeter Temp 97.9 F Temp Source Oral Pulse Oximetry (%) 97 Oxygen Delivery Method Room Air Intake Visit Reasons: EP-?uti Intake Note: pt presents with concern for UTI, c/o urine being dark in color and has a strong odor-at home urinalysis showed positive leukocytes today Patient Tobacco Use Status: Never used Tobacco Allergies gabapentin Allergy (Verified 03/10/25 15:48) feeling very tired dizzy budesonide (From Symbicort) Adverse Reaction (Intermediate, Verified 03/10/25 15:48) Cough denosumab (From Prolia) Adverse Reaction (Intermediate, Verified 03/10/25 15:48) jaw necrosis formoterol (From Symbicort) Adverse Reaction (Intermediate, Verified 03/10/25 1 5:48) Cough lisinopril Adverse Reaction (Intermediate, Verified 03/10/25 15:48) Cough alendronate sodium Adverse Reaction (Verified 03/10/25 15:48) jaw necrosis fluticasone furoate (From Trelegy Ellipta) Adverse Reaction (Verified 03/10/25 15:48) hoarseness umeclidinium (From Trelegy Ellipta) Adverse Reaction (Verified 03/10/25 15:48) hoarseness vilanterol (From Trelegy Ellipta) Adverse Reaction (Verified 03/10/25 15:48) hoarseness Do you need a note to return to daycare/school/sports/work: No HPI HPI Comments History of Present Illness Details History - The patient is an 80-year-old individu al presenting with symptoms suggestive of a urinary tract infection x few days. - The patient reports increased frequenc y of urination without significant burning sensation. - A home test indicated the presence of leukocytes but not nitrites. - The patient experiences back pain, att ributed to a chronic back condition, with no acute change in severity. - The patient denies fever and blood in urine. - The patient reports itching but no vag inal discharge. [facility] Medical History Anxiety and depression Vitamin D deficiency Vitamin D deficiency disease Carotid artery bruit Osteopenia Annual physical exam Knee pain, left Sciatica Hypothyroidism Overweight Hyperlipidemia HTN (hypertension) Surgical History Hx of total knee replacement Family History Father Heart attack Mother No problems noted. Social History Housing: House Patient Tobacco Use Status: Never used Tobacco e-Cigarette/Vaping Use: Never Used service: No Current occupational status: retired Cognitive needs: No Hearing needs: No Vision needs: Yes Review of Systems Narrative Review of Systems - Genitourinary: Reports increased frequency of urination, denies burning sensation, denies hematuria. - Musculoskeletal: Reports chronic back pain, no significant change in severity. - Constitutional: Denies fever. - Dermatological: Reports itching, denies discharge. All systems reviewed and are unremarkable except as noted in HPI Physical Exam Exam Exam: Physical Exam General: Cooperative, healthy appearing, comfortable, no acute distress and well developed Orientation: Patient oriented x3 Limitations: No limitations Head: Normal to inspection Ears: Hearing grossly normal bilaterally Face and sinus: Normal facial exam Neck: Normal visual inspection and Yes full ROM Respiratory: Normal respiratory effort and able to speak in complete sentences. Skin: No rashes or lesions noted Neuro: Patient oriented x3, gait normal Vital Signs: BMI result Body Mass Index 29.3 Assessment & Plan Assessment & Plan (1) Urinary tract infection: Code(s): N39.0 - Urinary tract infection, site not specified Qualifiers: Urinary tract infection type: acute cystitis Hematuria presence: without hematuria Qualified Code(s): N30.00 - Acute cystitis without hematuria Plan: Plan - Initiate empirical antibiotic therapy for suspected urinary tract infection, pending urine culture results. - Perform urine culture to confirm diagnosis and adjust treatment if necessary. - Recommend jshf-ryy-facnqay antifungal cream for symptomatic relief of itching. Patient was informed and verbally consented to the use of an ambient scribe for clinic note documentation during this visit. Orders: Orders Urine Culture Today N39.0 - Urinary tract infection, site not specified Medications: New cefuroxime axetil 500 mg PO Q12H 10 tabs 0RF Discontinued famotidine (Pepcid) Discontinued Reason: Patient Completed Course 40 mg PO DAILY PRN 90 tabs 0RF heartburn Coding Level of Care Code Est Pt Level 3 (60147) Diagnoses Acute cystitis without hematuria N30.00 Urinary tract infection type: acute cystitis Hematuria presence: without hematuria
== END 2025-03-10 16:15 | disposition home or self-care (01) ==
PROVIDERS: PCP Internal Medicine; Visit Provider Physician Assistant
DX: N30.00 Acute cystitis without hematuria (principal); Z13.9 Encounter for screening, unspecified

== ENCOUNTER 2025-03-10 15:41 | Outpatient (REF) | payer MEDICARE, OTHER, SELFPAY | END 2025-03-10 15:42 | disposition home or self-care (01) | LOC: HO.LAB 15:41 | PROVIDERS: PCP Internal Medicine; Visit Provider Physician Assistant | DX: N30.00 Acute cystitis without hematuria (principal) | CPT/HCPCS: 81003; 87086; 99212 ==